=== PATIENT | male | born 1985 | race African-American/Black ===

== ENCOUNTER 2022-09-21 14:03 | Inpatient (IN) | payer MEDICARE, OTHER ==
[2022-09-21] VITALS (10 sets, daily range): BP systolic 72–123; BP diastolic 42–71; TEMP 99.2; O2SAT 92–100
[~2022-09-21] VITALS: Ht 167.6 cm; Wt 62.3 kg
[2022-09-21] MEDS ORDERED: AZITHROMYCIN 500 MG in IV D5W 250 ML IV ONE (15:00)
[2022-09-21] MEDS ORDERED: PIPERACILLIN /TAZOBACTAM 3.375 G in IV D5W 50 ML IV ONE (15:00)
[2022-09-21] MEDS ORDERED: VANCOMYCIN 1 GM in IV D5W 250 ML IV ONE ×2 (15:00→16:00)
[2022-09-21 15:02] LABS: BASOPHILS # (AUTO) 0.1 K/uL (0.0-0.2); BASOPHILS % (AUTO) 0.7 % (0.0-2.0); EOSINOPHILS % (AUTO) 0.4 % (0.0-6.0); HEMATOCRIT 29 % (39-51); LYMPHOCYTES # (AUTO) 1.2 K/uL (0.8-4.8); LYMPHOCYTES % (AUTO) 10.9 % (20.0-44.0); MEAN CORPUSCULAR HEMOGLOBIN 28 PG (26.0-33.0); MEAN CORPUSCULAR HGB CONC 31 g/dl (31.0-36.0); MEAN CORPUSCULAR VOLUME 91 fL (80-96); MONOCYTES # (AUTO) 0.8 K/uL (0.1-1.30); MONOCYTES % (AUTO) 7.3 % (2.0-12.0); NEUTROPHILS # (AUTO) 9.1 K/uL (1.8-8.9); NEUTROPHILS % (AUTO) 80.7 % (43.0-81.0); PLATELET COUNT (AUTO) 176 K/uL (150-450); RED BLOOD CELL COUNT(AUTO) 3.23 MIL/uL (4.5-6.0); RED CELL DISTRIBUTION WIDTH 16.7 % (11.5-15.0); WHITE BLOOD COUNT (AUTO) 11.3 K/uL (4.3-11.0)
[2022-09-21 15:05] LABS: ABG BASE EXCESS 5.2 mmol/L; ABG OXYGEN SATURATION 98.7 % (92.0-98.5); ABG PCO2 122.9 mmHg (35.0-45.0); ABG PH 7.101 (7.350-7.450); ABG PO2 151.3 mmHg (75.0-100.0); COHb 1.6 % (0.5-1.5); MetHb 0.3 % (0.0-1.5); O2Hb 96.8 % (94.0-97.0); SITE, ABG Right Radial; VENT MODE, BG NRB 15L
[2022-09-21 15:12] LABS: SERUM AMMONIA 42 umol/L (11-32)
[2022-09-21 15:31] LABS: ALANINE AMINOTRANSFERASE 27 U/L (12-78); ALBUMIN 3.3 g/dL (3.4-5.0); ALKALINE PHOSPHATASE 181 U/L (46-116); ASPARTATE AMINOTRANSFERASE 20 U/L (15-37); BILIRUBIN,DIRECT 0.1 mg/dL (0.0-0.2); BILIRUBIN,TOTAL 0.4 mg/dL (0.2-1.0); CARBON DIOXIDE 32 mmol/L (21-32); CHLORIDE 93 mmol/L (98-107); CREATININE 6.2 mg/dL (0.6-1.3); GLUCOSE 147 mg/dL (74-106); NT-PRO BNP > 25000 pg/mL (0-125); POTASSIUM 3.7 mmol/L (3.5-5.1); SODIUM SERUM 134 mmol/L (136-145); TOTAL PROTEIN, SERUM 8.9 g/dL (6.4-8.2)
[2022-09-21 15:47] LABS: UREA NITROGEN, BLOOD 90 mg/dL (7-18)
[2022-09-21] MEDS ORDERED: IV NS 0.9% 1,000 ML BAG IV SCH (16:00)
[2022-09-21] MEDS ORDERED: ONDANSETRON HCL/PF 4 MG/2 ML VIAL IVP PRN (16:00)
[2022-09-21] MEDS ORDERED: MIDAZOLAM HCL 100 MG in IV NS 0.9% 80 ML IV PRN ×2 (16:30→17:00)
[2022-09-21] MEDS ORDERED: VANCOMYCIN 500 MG in IV D5W 100 ML IV PRN (16:30)
[2022-09-21] MEDS ORDERED: ROCURONIUM BROMIDE 50 MG/5 ML IV ONE (16:54)
[2022-09-21] MEDS ORDERED: ETOMIDATE 2 MG/ML VIAL IV ONE (16:54)
[2022-09-21] MEDS ORDERED: PROPOFOL 100 ML IV PRN (17:00)
[2022-09-21] MEDS ORDERED: IV NS 0.9% 1,000 ML BAG IV ONE (17:00)
[2022-09-21] MEDS ORDERED: ASCO-352 GT (17:14)
[2022-09-21] MEDS ORDERED: MAGN400O6 GT (17:14)
[2022-09-21] MEDS ORDERED: LEVE100S GT (17:14)
[2022-09-21] MEDS ORDERED: FERR220S2 GT (17:14)
[2022-09-21] MEDS ORDERED: CALC500T88 GT (17:14)
[2022-09-21] MEDS ORDERED: NORM210S TP (17:14)
[2022-09-21] MEDS ORDERED: LOSA25TA3 GT (17:14)
[2022-09-21] MEDS ORDERED: CARV25TA2 GT (17:14)
[2022-09-21] MEDS ORDERED: SENN-261 GT (17:14)
[2022-09-21] MEDS ORDERED: INSU100V42 SQ (17:14)
[2022-09-21] MEDS ORDERED: PROTEIN LIQUID GT (17:14)
[2022-09-21] MEDS ORDERED: CLON0.2T GT (17:14)
[2022-09-21] MEDS ORDERED: BISA10SU11 RC (17:14)
[2022-09-21] MEDS ORDERED: PANT40TA49 GT (17:14)
[2022-09-21] MEDS ORDERED: MINO10TA2 GT (17:14)
[2022-09-21] MEDS ORDERED: THIA100T88 GT (17:14)
[2022-09-21] MEDS ORDERED: ACET-2605 GT (17:14)
[2022-09-21] MEDS ORDERED: ZINC220C6 GT (17:14)
[2022-09-21] MEDS ORDERED: MELA3TAB41 GT (17:14)
[2022-09-21] MEDS ORDERED: NEPRO 1.8 (17:14)
[2022-09-21] MEDS ORDERED: BLOO-668 IN (17:14)
[2022-09-21] MEDS ORDERED: AMLO5TAB4 GT (17:14)
[2022-09-21] MEDS ORDERED: SEVE0.8P3 GT (17:14)
[2022-09-21] MEDS ORDERED: NA P133E RC (17:14)
[2022-09-21] MEDS ORDERED: CYAN-51 GT (17:14)
[2022-09-21] MEDS ORDERED: SUCR1ORA15 GT (17:14)
[2022-09-21] MEDS ORDERED: APIX2.5T GT (17:14)
[2022-09-21] MEDS ORDERED: FAMO20TA8 PO (17:14)
[2022-09-21] MEDS ORDERED: OLAN2.5T3 GT (17:14)
[2022-09-21] MEDS ORDERED: HYDR-4303 GT (17:14)
[2022-09-21] MEDS ORDERED: ACET-868 PO (17:14)
[2022-09-21] MEDS ORDERED: FOLI0.8T23 GT (17:14)
[2022-09-21] MEDS ORDERED: DAPT500V2 IV (17:14)
[2022-09-21] MEDS ORDERED: FOLI0.8T3 GT (17:14)
[2022-09-21] MEDS ORDERED: HYDR-4076 GT (17:14)
[2022-09-21 17:36] LABS: ABG BASE EXCESS 2.1 mmol/L; ABG OXYGEN SATURATION 92.4 % (92.0-98.5); ABG PCO2 49.5 mmHg (35.0-45.0); ABG PH 7.367 (7.350-7.450); ABG PO2 59.6 mmHg (75.0-100.0); ABG TOTAL HEMOGLOBIN 8.4 G/dL (13.5-18.0); COHb 1.6 % (0.5-1.5); MetHb 0.3 % (0.0-1.5); O2Hb 90.6 % (94.0-97.0); SITE, ABG Right Radial
[2022-09-21] MEDS ORDERED: PIPERACILLIN /TAZOBACTAM 3.375 G in IV D5W 50 ML IV SCH (18:00)
[2022-09-21] MEDS: NOREPINEPHRINE 8 MG in IV NS 0.9% 242 ML IV PRN (19:03)
[2022-09-21] MEDS: MIDAZOLAM HCL 100 MG in IV NS 0.9% 80 ML IV PRN (20:14)
[2022-09-21] MEDS: PIPERACILLIN /TAZOBACTAM 2.25 G in IV D5W 50 ML IV SCH (20:17)
[2022-09-21] MEDS: PANTOPRAZOLE 40 MG VIAL IV SCH (20:17)
[2022-09-21] MEDS: HYDROCORTISONE SOD SUCCINATE 100 MG/2 ML VIAL IV SCH ×2 (20:18→21:00)
[2022-09-21] MEDS: IV NS 0.9% 250 ML IV PRN (20:27)
[2022-09-22] VITALS (79 sets, daily range): BP systolic 88–144; BP diastolic 48–86; TEMP 97.8–99; O2SAT 92–100
[2022-09-22] MEDS: ACETAMINOPHEN 650 MG/SUPP.RECT RC PRN (01:54)
[2022-09-22] MEDS: NOREPINEPHRINE 8 MG in IV NS 0.9% 242 ML IV PRN ×2 (04:01→23:48)
[2022-09-22 04:53] LABS: BASOPHILS % (AUTO) 0.1 % (0.0-2.0); HEMATOCRIT 25 % (39-51); HEMOGLOBIN 7.9 g/dL (13.5-17.5); LYMPHOCYTES # (AUTO) 1.2 K/uL (0.8-4.8); LYMPHOCYTES % (AUTO) 16.6 % (20.0-44.0); MEAN CORPUSCULAR HEMOGLOBIN 28 PG (26.0-33.0); MEAN CORPUSCULAR HGB CONC 32 g/dl (31.0-36.0); MEAN CORPUSCULAR VOLUME 87 fL (80-96); MONOCYTES # (AUTO) 0.4 K/uL (0.1-1.30); MONOCYTES % (AUTO) 5.5 % (2.0-12.0); NEUTROPHILS # (AUTO) 5.8 K/uL (1.8-8.9); NEUTROPHILS % (AUTO) 77.8 % (43.0-81.0); PLATELET COUNT (AUTO) 174 K/uL (150-450); RED BLOOD CELL COUNT(AUTO) 2.85 MIL/uL (4.5-6.0); RED CELL DISTRIBUTION WIDTH 16.2 % (11.5-15.0); WHITE BLOOD COUNT (AUTO) 7.5 K/uL (4.3-11.0)
[2022-09-22] MEDS: HYDROCORTISONE SOD SUCCINATE 100 MG/2 ML VIAL IV SCH ×3 (04:59→21:07)
[2022-09-22] MEDS: PIPERACILLIN /TAZOBACTAM 2.25 G in IV D5W 50 ML IV SCH ×5 (05:00→17:38)
[2022-09-22 05:17] LABS: ALBUMIN 2.7 g/dL (3.4-5.0); BILIRUBIN,TOTAL 0.5 mg/dL (0.2-1.0); CREATININE 6.8 mg/dL (0.6-1.3); POTASSIUM 3.1 mmol/L (3.5-5.1); TOTAL PROTEIN, SERUM 7.5 g/dL (6.4-8.2)
[2022-09-22] MEDS: MIDAZOLAM HCL 100 MG in IV NS 0.9% 80 ML IV PRN (06:00)
[2022-09-22] MEDS: IV NS 0.9% 250 ML IV PRN ×2 (06:05→22:43)
[2022-09-22] MEDS: PANTOPRAZOLE 40 MG VIAL IV SCH (08:47)
[2022-09-23] VITALS (80 sets, daily range): BP systolic 82–175; BP diastolic 47–87; TEMP 96.1–98.2; O2SAT 94–100
[2022-09-23] MEDS: PIPERACILLIN /TAZOBACTAM 2.25 G in IV D5W 50 ML IV SCH ×5 (00:01→23:31)
[2022-09-23 00:57] LABS: HIV-1 p24 ANTIGEN NON REACTIVE (NONREACTIVE); HIV-1/2 ANTIBODY NON REACTIVE (NONREACTIVE)
[2022-09-23 03:43] LABS: BASOPHILS % (AUTO) 0.1 % (0.0-2.0); HEMATOCRIT 26 % (39-51); HEMOGLOBIN 8.3 g/dL (13.5-17.5); LYMPHOCYTES # (AUTO) 0.9 K/uL (0.8-4.8); LYMPHOCYTES % (AUTO) 13.6 % (20.0-44.0); MEAN CORPUSCULAR HEMOGLOBIN 28 PG (26.0-33.0); MEAN CORPUSCULAR HGB CONC 32 g/dl (31.0-36.0); MEAN CORPUSCULAR VOLUME 87 fL (80-96); MONOCYTES # (AUTO) 0.4 K/uL (0.1-1.30); MONOCYTES % (AUTO) 6.1 % (2.0-12.0); NEUTROPHILS # (AUTO) 5.2 K/uL (1.8-8.9); NEUTROPHILS % (AUTO) 80.2 % (43.0-81.0); PLATELET COUNT (AUTO) 175 K/uL (150-450); RED BLOOD CELL COUNT(AUTO) 2.94 MIL/uL (4.5-6.0); RED CELL DISTRIBUTION WIDTH 16.6 % (11.5-15.0); WHITE BLOOD COUNT (AUTO) 6.5 K/uL (4.3-11.0)
[2022-09-23] MEDS: MIDAZOLAM HCL 100 MG in IV NS 0.9% 80 ML IV PRN ×2 (03:56→07:07)
[2022-09-23 04:03] LABS: CALCIUM, SERUM 11.5 mg/dL (8.5-10.1); CREATININE 5.4 mg/dL (0.6-1.3); MAGNESIUM 2.4 mg/dL (1.8-2.4); PHOSPHORUS 1.4 mg/dL (2.5-4.9); POTASSIUM 3.2 mmol/L (3.5-5.1)
[2022-09-23] MEDS: HYDROCORTISONE SOD SUCCINATE 100 MG/2 ML VIAL IV SCH ×3 (05:27→21:09)
[2022-09-23] MEDS ORDERED: Z GUARD REMEDY 4 OZ OINT TP PRN (08:00)
[2022-09-23] MEDS: PANTOPRAZOLE 40 MG VIAL IV SCH (09:25)
[2022-09-23] MEDS: Z GUARD REMEDY 4 OZ OINT TP SCH (09:26)
[2022-09-23] MEDS ORDERED: LACTULOSE 10 G/15 ML UDC (PYXIS) GT ONE (11:30)
[2022-09-23] MEDS ORDERED: hydrALAZINE HCL 25 MG TABLET GT PRN (12:00)
[2022-09-23] MEDS: SUCRALFATE 1 G/10 ML UDC GT SCH ×3 (12:06→21:08)
[2022-09-23] MEDS: IV NS 0.9% 250 ML IV PRN (12:55)
[2022-09-23] MEDS ORDERED: NOREPINEPHRINE 8 MG in IV NS 0.9% 242 ML IV PRN (14:30)
[2022-09-23] MEDS: NEPRO 1,000 ML BOTTLE GT PRN (15:12)
[2022-09-23] MEDS ORDERED: NEUTRA PHOS 1 POWD.PACKET GT ONE (16:00)
[2022-09-23] MEDS: CARVEDILOL 12.5 MG TABLET GT SCH (16:42)
[2022-09-23] MEDS: LEVETIRACETAM SOL (5 ML) 100 MG/ML UDC GT SCH (16:42)
[2022-09-23] MEDS: APIXABAN 2.5 MG TABLET GT SCH (16:43)
[2022-09-23] MEDS: MINOXIDIL (2.5MG) 2.5 MG TABLET GT SCH (17:00)
[2022-09-23] MEDS: CLONIDINE HCL 0.1 MG TABLET GT SCH (21:00)
[2022-09-24] VITALS (45 sets, daily range): BP systolic 80–171; BP diastolic 45–87; TEMP 97.7–98.5; O2SAT 94–100
[2022-09-24 04:18] LABS: BASOPHILS % (AUTO) 0.1 % (0.0-2.0); HEMATOCRIT 24 % (39-51); HEMOGLOBIN 7.9 g/dL (13.5-17.5); LYMPHOCYTES % (AUTO) 19.4 % (20.0-44.0); MEAN CORPUSCULAR HEMOGLOBIN 28 PG (26.0-33.0); MEAN CORPUSCULAR HGB CONC 33 g/dl (31.0-36.0); MEAN CORPUSCULAR VOLUME 87 fL (80-96); MONOCYTES # (AUTO) 0.4 K/uL (0.1-1.30); MONOCYTES % (AUTO) 8.4 % (2.0-12.0); NEUTROPHILS # (AUTO) 3.6 K/uL (1.8-8.9); NEUTROPHILS % (AUTO) 72.1 % (43.0-81.0); PLATELET COUNT (AUTO) 178 K/uL (150-450); RED BLOOD CELL COUNT(AUTO) 2.79 MIL/uL (4.5-6.0); RED CELL DISTRIBUTION WIDTH 16.4 % (11.5-15.0)
[2022-09-24 04:43] LABS: ALBUMIN 2.7 g/dL (3.4-5.0); BILIRUBIN,TOTAL 0.4 mg/dL (0.2-1.0); CALCIUM, SERUM 10.7 mg/dL (8.5-10.1); CREATININE 4.9 mg/dL (0.6-1.3); MAGNESIUM 2.3 mg/dL (1.8-2.4); PHOSPHORUS 1.8 mg/dL (2.5-4.9); TOTAL PROTEIN, SERUM 7.4 g/dL (6.4-8.2)
[2022-09-24] MEDS: MIDAZOLAM HCL 100 MG in IV NS 0.9% 80 ML IV PRN (04:43)
[2022-09-24] MEDS: HYDROCORTISONE SOD SUCCINATE 100 MG/2 ML VIAL IV SCH ×3 (04:45→20:29)
[2022-09-24 05:05] LABS: POTASSIUM 2.8 mmol/L (3.5-5.1)
[2022-09-24 05:29] LABS: HEPATITIS B CORE AB, TOTAL Negative (Negative)
[2022-09-24] MEDS: PIPERACILLIN /TAZOBACTAM 2.25 G in IV D5W 50 ML IV SCH ×3 (05:43→17:13)
[2022-09-24] MEDS ORDERED: POTASSIUM CHLORIDE 20 MEQ POWDER PACKET GT ONE (06:00)
[2022-09-24 08:18] LABS: CHOLESTEROL 123 mg/dL (<200); HDL CHOLESTEROL 52 mg/dL (40-60); LDL 52 mg/dL (0-99); TRIGLYCERIDES 80 mg/dL (30-150)
[2022-09-24] MEDS: SUCRALFATE 1 G/10 ML UDC GT SCH ×4 (08:51→20:29)
[2022-09-24] MEDS: LEVETIRACETAM SOL (5 ML) 100 MG/ML UDC GT SCH ×2 (08:51→17:11)
[2022-09-24] MEDS: PANTOPRAZOLE 40 MG VIAL IV SCH (08:51)
[2022-09-24] MEDS: OLANZAPINE 2.5 MG TABLET GT SCH (08:51)
[2022-09-24] MEDS: THIAMINE HCL 100 MG TABLET GT SCH (08:52)
[2022-09-24 08:56] LABS: OCCULT BLOOD STOOL NEGATIVE (NEGATIVE)
[2022-09-24] MEDS: APIXABAN 2.5 MG TABLET GT SCH ×2 (09:00→17:12)
[2022-09-24] MEDS: LOSARTAN POTASSIUM 25 MG TABLET GT SCH (09:00)
[2022-09-24] MEDS: AMLODIPINE BESYLATE 5 MG TABLET GT SCH (09:00)
[2022-09-24] MEDS: CLONIDINE HCL 0.1 MG TABLET GT SCH ×2 (09:00→20:30)
[2022-09-24] MEDS: MINOXIDIL (2.5MG) 2.5 MG TABLET GT SCH ×2 (09:00→17:00)
[2022-09-24] MEDS: CARVEDILOL 12.5 MG TABLET GT SCH ×2 (09:12→17:00)
[2022-09-24] MEDS: Z GUARD REMEDY 4 OZ OINT TP SCH (09:13)
[2022-09-24 10:08] LABS: ABG BASE EXCESS 3.5 mmol/L; ABG OXYGEN SATURATION 98.4 % (92.0-98.5); ABG PH 7.482 (7.350-7.450); ABG PO2 114.6 mmHg (75.0-100.0); ABG TOTAL HEMOGLOBIN 9.9 G/dL (13.5-18.0); AaDO2 91.9 mmHg; COHb 0.9 % (0.5-1.5); MetHb 0.1 % (0.0-1.5); O2Hb 97.4 % (94.0-97.0); PEEP,BG 5 cm H2O; SITE, ABG Right Brachial; VT, ABG 450 mL
[2022-09-24] MEDS ORDERED: IV NS 0.9% 250 ML IV ONE (16:36)
[2022-09-24] MEDS ORDERED: IOHEXOL-300 100 ML VIAL IV ONE (16:36)
[2022-09-24 17:23] LABS: CALCIUM, SERUM 11.1 mg/dL (8.5-10.1); CREATININE 3.2 mg/dL (0.6-1.3); POTASSIUM 3.6 mmol/L (3.5-5.1)
[2022-09-24] MEDS ORDERED: NEUTRA PHOS 1 POWD.PACKET PO ONE (18:00)
[2022-09-25] VITALS (24 sets, daily range): BP systolic 86–144; BP diastolic 55–90; TEMP 97.7–98.6; O2SAT 96–100
[2022-09-25] MEDS: PIPERACILLIN /TAZOBACTAM 2.25 G in IV D5W 50 ML IV SCH ×4 (00:16→17:18)
[2022-09-25 04:37] LABS: BASOPHILS % (AUTO) 0.1 % (0.0-2.0); HEMATOCRIT 29 % (39-51); HEMOGLOBIN 8.9 g/dL (13.5-17.5); LYMPHOCYTES # (AUTO) 0.7 K/uL (0.8-4.8); LYMPHOCYTES % (AUTO) 13.2 % (20.0-44.0); MEAN CORPUSCULAR HEMOGLOBIN 28 PG (26.0-33.0); MEAN CORPUSCULAR HGB CONC 31 g/dl (31.0-36.0); MEAN CORPUSCULAR VOLUME 90 fL (80-96); MONOCYTES # (AUTO) 0.4 K/uL (0.1-1.30); MONOCYTES % (AUTO) 6.7 % (2.0-12.0); NEUTROPHILS # (AUTO) 4.5 K/uL (1.8-8.9); PLATELET COUNT (AUTO) 188 K/uL (150-450); RED CELL DISTRIBUTION WIDTH 17.1 % (11.5-15.0); WHITE BLOOD COUNT (AUTO) 5.7 K/uL (4.3-11.0)
[2022-09-25 04:47] LABS: CALCIUM, SERUM 11.3 mg/dL (8.5-10.1); CREATININE 3.8 mg/dL (0.6-1.3); MAGNESIUM 2.3 mg/dL (1.8-2.4); PHOSPHORUS 3.3 mg/dL (2.5-4.9); POTASSIUM 3.9 mmol/L (3.5-5.1)
[2022-09-25] MEDS: HYDROCORTISONE SOD SUCCINATE 100 MG/2 ML VIAL IV SCH ×3 (05:15→20:42)
[2022-09-25] MEDS: NEPRO 1,000 ML BOTTLE GT PRN (05:48)
[2022-09-25] MEDS: PANTOPRAZOLE 40 MG VIAL IV SCH (08:18)
[2022-09-25] MEDS: LEVETIRACETAM SOL (5 ML) 100 MG/ML UDC GT SCH ×2 (08:18→17:16)
[2022-09-25] MEDS: OLANZAPINE 2.5 MG TABLET GT SCH (08:18)
[2022-09-25] MEDS: SUCRALFATE 1 G/10 ML UDC GT SCH ×4 (08:18→20:42)
[2022-09-25] MEDS: THIAMINE HCL 100 MG TABLET GT SCH (08:18)
[2022-09-25] MEDS: APIXABAN 2.5 MG TABLET GT SCH ×2 (08:19→17:16)
[2022-09-25] MEDS: Z GUARD REMEDY 4 OZ OINT TP SCH (08:20)
[2022-09-25] MEDS: AMLODIPINE BESYLATE 5 MG TABLET GT SCH (09:00)
[2022-09-25] MEDS: CLONIDINE HCL 0.1 MG TABLET GT SCH ×2 (09:00→21:00)
[2022-09-25] MEDS: LOSARTAN POTASSIUM 25 MG TABLET GT SCH (09:00)
[2022-09-25] MEDS: CARVEDILOL 12.5 MG TABLET GT SCH ×2 (09:00→17:16)
[2022-09-25] MEDS: MINOXIDIL (2.5MG) 2.5 MG TABLET GT SCH ×2 (09:00→17:17)
[2022-09-25] MEDS: METOCLOPRAMIDE HCL 10 MG/2 ML VIAL IV SCH ×2 (12:48→18:27)
[2022-09-25] MEDS ORDERED: VANCOMYCIN 1 GM in IV D5W 250ml IV ONE (15:00)
[2022-09-26] VITALS (29 sets, daily range): BP systolic 76–141; BP diastolic 45–83; TEMP 97.8–98.2; O2SAT 92–100
[2022-09-26] MEDS: PIPERACILLIN /TAZOBACTAM 2.25 G in IV D5W 50 ML IV SCH ×4 (00:04→17:26)
[2022-09-26] MEDS: METOCLOPRAMIDE HCL 10 MG/2 ML VIAL IV SCH ×4 (00:06→18:57)
[2022-09-26] MEDS: IV NS 0.9% 250 ML IV PRN (00:14)
[2022-09-26 05:11] LABS: BASOPHILS % (AUTO) 0.1 % (0.0-2.0); HEMATOCRIT 29 % (39-51); HEMOGLOBIN 8.8 g/dL (13.5-17.5); LYMPHOCYTES # (AUTO) 1.1 K/uL (0.8-4.8); MEAN CORPUSCULAR HEMOGLOBIN 28 PG (26.0-33.0); MEAN CORPUSCULAR HGB CONC 30 g/dl (31.0-36.0); MEAN CORPUSCULAR VOLUME 91 fL (80-96); MONOCYTES # (AUTO) 0.5 K/uL (0.1-1.30); MONOCYTES % (AUTO) 7.6 % (2.0-12.0); NEUTROPHILS # (AUTO) 4.8 K/uL (1.8-8.9); NEUTROPHILS % (AUTO) 75.3 % (43.0-81.0); PLATELET COUNT (AUTO) 186 K/uL (150-450); RED BLOOD CELL COUNT(AUTO) 3.18 MIL/uL (4.5-6.0); RED CELL DISTRIBUTION WIDTH 16.8 % (11.5-15.0); WHITE BLOOD COUNT (AUTO) 6.3 K/uL (4.3-11.0)
[2022-09-26 05:27] LABS: CALCIUM, SERUM 10.9 mg/dL (8.5-10.1); CREATININE 3.6 mg/dL (0.6-1.3); MAGNESIUM 2.3 mg/dL (1.8-2.4); PHOSPHORUS 4.2 mg/dL (2.5-4.9); POTASSIUM 4.1 mmol/L (3.5-5.1)
[2022-09-26] MEDS: HYDROCORTISONE SOD SUCCINATE 100 MG/2 ML VIAL IV SCH ×3 (05:31→20:53)
[2022-09-26] MEDS ORDERED: VANCOMYCIN 500 MG in IV D5W 100 ML IV PRN (06:00)
[2022-09-26] MEDS: CARVEDILOL 12.5 MG TABLET GT SCH ×2 (11:20→17:00)
[2022-09-26] MEDS: LEVETIRACETAM SOL (5 ML) 100 MG/ML UDC GT SCH ×2 (11:20→17:21)
[2022-09-26] MEDS: APIXABAN 2.5 MG TABLET GT SCH ×2 (11:21→17:23)
[2022-09-26] MEDS: AMLODIPINE BESYLATE 5 MG TABLET GT SCH (11:21)
[2022-09-26] MEDS: Z GUARD REMEDY 4 OZ OINT TP SCH (11:22)
[2022-09-26] MEDS: MINOXIDIL (2.5MG) 2.5 MG TABLET GT SCH ×2 (11:23→17:00)
[2022-09-26] MEDS: SUCRALFATE 1 G/10 ML UDC GT SCH ×4 (11:31→20:53)
[2022-09-26] MEDS: THIAMINE HCL 100 MG TABLET GT SCH (11:31)
[2022-09-26] MEDS: PANTOPRAZOLE 40 MG/PACK PACK GT SCH (11:31)
[2022-09-26] MEDS: CLONIDINE HCL 0.1 MG TABLET GT SCH (11:32)
[2022-09-26] MEDS: LOSARTAN POTASSIUM 25 MG TABLET GT SCH (11:33)
[2022-09-26] MEDS: OLANZAPINE 2.5 MG TABLET GT SCH (11:33)
[2022-09-26 12:06] LABS: AFP, TUMOR MARKER 3.3 ng/mL (0.0-6.9)
[2022-09-26] MEDS: NEPRO 1,000 ML BOTTLE GT PRN (12:50)
[2022-09-26] MEDS ORDERED: ALBUMIN 25% 12.5 GM/50 ML BOTTLE IV ONE ×2 (14:30→15:00)
[2022-09-26] MEDS ORDERED: ALBUMIN 25% 25 GM in PREMIX 1 EA IV ONE (15:30)
[2022-09-26] MEDS ORDERED: NOREPINEPHRINE 8 MG in IV NS 0.9% 242 ML IV PRN (19:00)
[2022-09-27] VITALS (28 sets, daily range): BP systolic 88–146; BP diastolic 50–89; TEMP 98–98.6; O2SAT 93–100
[2022-09-27] MEDS: PIPERACILLIN /TAZOBACTAM 2.25 G in IV D5W 50 ML IV SCH ×4 (00:22→17:32)
[2022-09-27] MEDS: METOCLOPRAMIDE HCL 10 MG/2 ML VIAL IV SCH ×4 (00:22→19:53)
[2022-09-27 00:57] LABS: ABG BASE EXCESS -0.7 mmol/L; ABG OXYGEN SATURATION 96.8 % (92.0-98.5); ABG PCO2 71.4 mmHg (35.0-45.0); ABG PH 7.213 (7.350-7.450); ABG PO2 95.6 mmHg (75.0-100.0); ABG TOTAL HEMOGLOBIN 10.2 G/dL (13.5-18.0); AaDO2 107.5 mmHg; COHb 1.6 % (0.5-1.5); MetHb 0.2 % (0.0-1.5); O2Hb 95.1 % (94.0-97.0); SITE, ABG Left Radial
[2022-09-27 02:35] LABS: ABG OXYGEN SATURATION 92.6 % (92.0-98.5); ABG PCO2 54.4 mmHg (35.0-45.0); AaDO2 159.6 mmHg; COHb 1.3 % (0.5-1.5); MetHb 0.3 % (0.0-1.5); O2Hb 91.1 % (94.0-97.0); SITE, ABG Right Radial
[2022-09-27] MEDS: HYDROCORTISONE SOD SUCCINATE 100 MG/2 ML VIAL IV SCH ×3 (05:01→21:36)
[2022-09-27 05:23] LABS: BASOPHILS % (AUTO) 0.1 % (0.0-2.0); HEMATOCRIT 28 % (39-51); HEMOGLOBIN 8.6 g/dL (13.5-17.5); LYMPHOCYTES # (AUTO) 1.1 K/uL (0.8-4.8); LYMPHOCYTES % (AUTO) 21.1 % (20.0-44.0); MEAN CORPUSCULAR HEMOGLOBIN 28 PG (26.0-33.0); MEAN CORPUSCULAR HGB CONC 31 g/dl (31.0-36.0); MEAN CORPUSCULAR VOLUME 89 fL (80-96); MONOCYTES # (AUTO) 0.4 K/uL (0.1-1.30); MONOCYTES % (AUTO) 6.9 % (2.0-12.0); NEUTROPHILS # (AUTO) 3.9 K/uL (1.8-8.9); NEUTROPHILS % (AUTO) 71.9 % (43.0-81.0); PLATELET COUNT (AUTO) 213 K/uL (150-450); RED BLOOD CELL COUNT(AUTO) 3.09 MIL/uL (4.5-6.0); RED CELL DISTRIBUTION WIDTH 16.4 % (11.5-15.0); WHITE BLOOD COUNT (AUTO) 5.4 K/uL (4.3-11.0)
[2022-09-27 05:35] LABS: CALCIUM, SERUM 10.2 mg/dL (8.5-10.1); CREATININE 3.1 mg/dL (0.6-1.3); MAGNESIUM 2.1 mg/dL (1.8-2.4); PHOSPHORUS 3.4 mg/dL (2.5-4.9); POTASSIUM 3.9 mmol/L (3.5-5.1)
[2022-09-27] MEDS: CARVEDILOL 12.5 MG TABLET GT SCH ×2 (08:01→16:08)
[2022-09-27] MEDS: MINOXIDIL (2.5MG) 2.5 MG TABLET GT SCH ×2 (08:07→16:09)
[2022-09-27] MEDS: AMLODIPINE BESYLATE 5 MG TABLET PO SCH (08:07)
[2022-09-27] MEDS: THIAMINE HCL 100 MG TABLET GT SCH (08:10)
[2022-09-27] MEDS: SUCRALFATE 1 G/10 ML UDC GT SCH ×4 (08:11→21:36)
[2022-09-27] MEDS: OLANZAPINE 2.5 MG TABLET GT SCH (08:11)
[2022-09-27] MEDS: APIXABAN 2.5 MG TABLET GT SCH ×2 (08:11→16:12)
[2022-09-27] MEDS: LEVETIRACETAM SOL (5 ML) 100 MG/ML UDC GT SCH ×2 (08:11→16:13)
[2022-09-27] MEDS: PANTOPRAZOLE 40 MG/PACK PACK GT SCH (08:14)
[2022-09-27] MEDS: Z GUARD REMEDY 4 OZ OINT TP SCH (08:14)
[2022-09-27] MEDS ORDERED: GADOTERATE MEGLUMINE 10 MMOL/20 ML VIAL IV ONE (11:31)
[2022-09-27] MEDS: NEPRO 1,000 ML BOTTLE GT PRN (12:48)
[2022-09-27] MEDS ORDERED: IV Sodium Chloride 3% 500 ML 100 ML IV ONE (14:00)
[2022-09-28] VITALS (25 sets, daily range): BP systolic 108–142; BP diastolic 67–91; TEMP 97.5–98.8; O2SAT 93–100
[2022-09-28] MEDS: PIPERACILLIN /TAZOBACTAM 2.25 G in IV D5W 50 ML IV SCH ×2 (00:15→05:22)
[2022-09-28] MEDS: METOCLOPRAMIDE HCL 10 MG/2 ML VIAL IV SCH ×4 (00:16→19:55)
[2022-09-28 04:44] LABS: EOSINOPHILS % (AUTO) 0.1 % (0.0-6.0); HEMATOCRIT 28 % (39-51); HEMOGLOBIN 8.6 g/dL (13.5-17.5); LYMPHOCYTES # (AUTO) 0.8 K/uL (0.8-4.8); LYMPHOCYTES % (AUTO) 17.4 % (20.0-44.0); MEAN CORPUSCULAR HEMOGLOBIN 28 PG (26.0-33.0); MEAN CORPUSCULAR HGB CONC 31 g/dl (31.0-36.0); MEAN CORPUSCULAR VOLUME 90 fL (80-96); MONOCYTES # (AUTO) 0.3 K/uL (0.1-1.30); MONOCYTES % (AUTO) 6.3 % (2.0-12.0); NEUTROPHILS # (AUTO) 3.7 K/uL (1.8-8.9); NEUTROPHILS % (AUTO) 76.2 % (43.0-81.0); PLATELET COUNT (AUTO) 193 K/uL (150-450); RED BLOOD CELL COUNT(AUTO) 3.07 MIL/uL (4.5-6.0); RED CELL DISTRIBUTION WIDTH 16.4 % (11.5-15.0); WHITE BLOOD COUNT (AUTO) 4.8 K/uL (4.3-11.0)
[2022-09-28 05:00] LABS: CALCIUM, SERUM 10.3 mg/dL (8.5-10.1); CREATININE 3.1 mg/dL (0.6-1.3); MAGNESIUM 2.2 mg/dL (1.8-2.4); PHOSPHORUS 2.7 mg/dL (2.5-4.9); POTASSIUM 3.3 mmol/L (3.5-5.1)
[2022-09-28] MEDS: HYDROCORTISONE SOD SUCCINATE 100 MG/2 ML VIAL IV SCH ×3 (05:22→21:44)
[2022-09-28 07:06] LABS: CARBOHYDRATE AG 19-9 23 U/mL (0-35); FOLIC ACID > 20.0 ng/mL (>3.0)
[2022-09-28] MEDS: SUCRALFATE 1 G/10 ML UDC GT SCH ×4 (08:24→21:44)
[2022-09-28] MEDS: LEVETIRACETAM SOL (5 ML) 100 MG/ML UDC GT SCH ×2 (08:24→16:33)
[2022-09-28] MEDS: OLANZAPINE 2.5 MG TABLET GT SCH (08:24)
[2022-09-28] MEDS: CARVEDILOL 12.5 MG TABLET GT SCH ×2 (08:24→16:33)
[2022-09-28 08:25] LABS: ABG BASE EXCESS -1.6 mmol/L; ABG OXYGEN SATURATION 97.1 % (92.0-98.5); ABG PH 7.231 (7.350-7.450); ABG PO2 97.7 mmHg (75.0-100.0); ABG TOTAL HEMOGLOBIN 10.3 G/dL (13.5-18.0); COHb 1.4 % (0.5-1.5); MetHb 0.5 % (0.0-1.5); O2Hb 95.3 % (94.0-97.0); SITE, ABG Right Radial; VENT MODE, BG 4LNC
[2022-09-28] MEDS: THIAMINE HCL 100 MG TABLET GT SCH (08:25)
[2022-09-28] MEDS: PANTOPRAZOLE 40 MG/PACK PACK GT SCH (08:25)
[2022-09-28] MEDS: AMLODIPINE BESYLATE 5 MG TABLET PO SCH (08:25)
[2022-09-28] MEDS: MINOXIDIL (2.5MG) 2.5 MG TABLET GT SCH ×2 (08:26→16:33)
[2022-09-28] MEDS: APIXABAN 2.5 MG TABLET GT SCH ×2 (08:30→16:34)
[2022-09-28] MEDS: Z GUARD REMEDY 4 OZ OINT TP SCH (08:30)
[2022-09-28 09:07] LABS: *SPE A/G RATIO 0.8 (0.7-1.7); *SPE ALBUMIN 3.4 g/dL (2.9-4.4); *SPE ALPHA-1-GLOBULIN 0.4 g/dL (0.0-0.4); *SPE ALPHA-2-GLOBULIN 0.8 g/dL (0.4-1.0); *SPE BETA GLOBULIN 1.1 g/dL (0.7-1.3); *SPE GLOBULIN, TOTAL 4.4 g/dL (2.2-3.9); *SPE M-SPIKE Not Observed g/dL (Not Observed); *SPE PROTEIN TOTAL 7.8 g/dL (6.0-8.5)
[2022-09-28 14:01] LABS: ABG BASE EXCESS 0.7 mmol/L; ABG PCO2 54.8 mmHg (35.0-45.0); ABG PH 7.318 (7.350-7.450); ABG PO2 67.3 mmHg (75.0-100.0); ABG TOTAL HEMOGLOBIN 10.1 G/dL (13.5-18.0); AaDO2 38.6 mmHg; COHb 1.4 % (0.5-1.5); MetHb 0.3 % (0.0-1.5); O2Hb 92.4 % (94.0-97.0); SITE, ABG Right Radial; VENT MODE, BG 1LNC
[2022-09-28] MEDS: IV NS 0.9% 250 ML IV PRN (18:03)
[2022-09-28] MEDS: POLYETHYLENE GLYCOL 3350 17 GM POWD.PACK PEG SCH (21:44)
[2022-09-29] VITALS (25 sets, daily range): BP systolic 104–149; BP diastolic 60–95; TEMP 97.8–98.4; O2SAT 92–100
[2022-09-29] MEDS: METOCLOPRAMIDE HCL 10 MG/2 ML VIAL IV SCH ×4 (01:58→19:47)
[2022-09-29 04:46] LABS: HEMATOCRIT 26 % (39-51); HEMOGLOBIN 8.2 g/dL (13.5-17.5); LYMPHOCYTES # (AUTO) 0.8 K/uL (0.8-4.8); LYMPHOCYTES % (AUTO) 18.8 % (20.0-44.0); MEAN CORPUSCULAR HEMOGLOBIN 28 PG (26.0-33.0); MEAN CORPUSCULAR HGB CONC 32 g/dl (31.0-36.0); MEAN CORPUSCULAR VOLUME 89 fL (80-96); MONOCYTES # (AUTO) 0.2 K/uL (0.1-1.30); MONOCYTES % (AUTO) 4.6 % (2.0-12.0); NEUTROPHILS # (AUTO) 3.3 K/uL (1.8-8.9); NEUTROPHILS % (AUTO) 76.6 % (43.0-81.0); PLATELET COUNT (AUTO) 183 K/uL (150-450); RED BLOOD CELL COUNT(AUTO) 2.94 MIL/uL (4.5-6.0); RED CELL DISTRIBUTION WIDTH 16.8 % (11.5-15.0); WHITE BLOOD COUNT (AUTO) 4.4 K/uL (4.3-11.0)
[2022-09-29 05:08] LABS: IMMUNOGLOBULIN A, SERUM 344 mg/dL (90-386); IMMUNOGLOBULIN G, SERUM 2060 mg/dL (603-1613); IMMUNOGLOBULIN M, SERUM 40 mg/dL (20-172)
[2022-09-29] MEDS: HYDROCORTISONE SOD SUCCINATE 100 MG/2 ML VIAL IV SCH ×4 (05:15→16:49)
[2022-09-29 05:16] LABS: CREATININE 3.4 mg/dL (0.6-1.3); PHOSPHORUS 2.6 mg/dL (2.5-4.9); POTASSIUM 3.3 mmol/L (3.5-5.1)
[2022-09-29] MEDS: AMLODIPINE BESYLATE 5 MG TABLET PO SCH (08:04)
[2022-09-29] MEDS: SUCRALFATE 1 G/10 ML UDC GT SCH ×4 (08:05→21:06)
[2022-09-29] MEDS: CARVEDILOL 12.5 MG TABLET GT SCH ×2 (08:05→17:05)
[2022-09-29] MEDS: MINOXIDIL (2.5MG) 2.5 MG TABLET GT SCH ×2 (08:05→17:05)
[2022-09-29] MEDS: LEVETIRACETAM SOL (5 ML) 100 MG/ML UDC GT SCH ×2 (08:05→17:04)
[2022-09-29] MEDS: PANTOPRAZOLE 40 MG/PACK PACK GT SCH (08:05)
[2022-09-29] MEDS: OLANZAPINE 2.5 MG TABLET GT SCH (08:06)
[2022-09-29] MEDS: THIAMINE HCL 100 MG TABLET GT SCH (08:06)
[2022-09-29] MEDS: APIXABAN 2.5 MG TABLET GT SCH ×2 (08:13→17:06)
[2022-09-29] MEDS: Z GUARD REMEDY 4 OZ OINT TP SCH (08:13)
[2022-09-29 08:39] LABS: ABG BASE EXCESS -1.2 mmol/L; ABG OXYGEN SATURATION 93.4 % (92.0-98.5); ABG PCO2 47.3 mmHg (35.0-45.0); ABG PH 7.337 (7.350-7.450); ABG PO2 67.1 mmHg (75.0-100.0); ABG TOTAL HEMOGLOBIN 9.8 G/dL (13.5-18.0); AaDO2 47.7 mmHg; COHb 1.6 % (0.5-1.5); MetHb 0.3 % (0.0-1.5); O2Hb 91.6 % (94.0-97.0); SITE, ABG Right Radial; VENT MODE, BG 1L NC
[2022-09-29 10:07] LABS: FREE KAPPA LT CHAINS SERUM 291.9 mg/L (3.3-19.4); FREE LAMBDA LT CHAIN SERUM 133.6 mg/L (5.7-26.3); KAPPA/LAMBDA RATIO SERUM 2.18 (0.26-1.65)
[2022-09-29] MEDS ORDERED: POTASSIUM CHLORIDE 20 MEQ POWDER PACKET GT SCH (11:30)
[2022-09-29] MEDS ORDERED: POTASSIUM CHLORIDE 20 MEQ POWDER PACKET GT ONE (15:00)
[2022-09-29] MEDS: NEPRO 1,000 ML BOTTLE GT PRN (18:22)
[2022-09-29] MEDS: POLYETHYLENE GLYCOL 3350 17 GM POWD.PACK PEG SCH (21:06)
[2022-09-30] VITALS (14 sets, daily range): BP systolic 105–153; BP diastolic 61–95; TEMP 97.3–99.1; O2SAT 95–100
[2022-09-30] MEDS: METOCLOPRAMIDE HCL 10 MG/2 ML VIAL IV SCH ×4 (01:31→18:28)
[2022-09-30 04:02] LABS: BASOPHILS % (AUTO) 0.2 % (0.0-2.0); EOSINOPHILS % (AUTO) 0.1 % (0.0-6.0); HEMATOCRIT 27 % (39-51); HEMOGLOBIN 8.4 g/dL (13.5-17.5); LYMPHOCYTES # (AUTO) 1.2 K/uL (0.8-4.8); LYMPHOCYTES % (AUTO) 26.8 % (20.0-44.0); MEAN CORPUSCULAR HEMOGLOBIN 28 PG (26.0-33.0); MEAN CORPUSCULAR HGB CONC 31 g/dl (31.0-36.0); MEAN CORPUSCULAR VOLUME 90 fL (80-96); MONOCYTES # (AUTO) 0.5 K/uL (0.1-1.30); MONOCYTES % (AUTO) 10.9 % (2.0-12.0); NEUTROPHILS # (AUTO) 2.9 K/uL (1.8-8.9); PLATELET COUNT (AUTO) 177 K/uL (150-450); RED BLOOD CELL COUNT(AUTO) 2.99 MIL/uL (4.5-6.0); RED CELL DISTRIBUTION WIDTH 16.5 % (11.5-15.0); WHITE BLOOD COUNT (AUTO) 4.6 K/uL (4.3-11.0)
[2022-09-30 04:18] LABS: CALCIUM, SERUM 10.3 mg/dL (8.5-10.1); CREATININE 3.5 mg/dL (0.6-1.3); MAGNESIUM 2.1 mg/dL (1.8-2.4); POTASSIUM 3.8 mmol/L (3.5-5.1)
[2022-09-30 04:53] LABS: LYMPHOCYTES % (MANUAL) 27 % (16-48); MONOCYTES % (MANUAL) 5 % (0-11.0); NEUTROPHILS % (MANUAL) 68 (42-76)
[2022-09-30 04:54] LABS: ANISOCYTOSIS 1+; HYPOCHROMASIA 1+; PLATELET ESTIMATE ADEQUATE; STOMATOCYTES 1+
[2022-09-30] MEDS: APIXABAN 2.5 MG TABLET GT SCH ×2 (08:24→16:14)
[2022-09-30] MEDS: OLANZAPINE 2.5 MG TABLET GT SCH (08:24)
[2022-09-30] MEDS: MINOXIDIL (2.5MG) 2.5 MG TABLET GT SCH ×2 (08:24→16:17)
[2022-09-30] MEDS: PANTOPRAZOLE 40 MG/PACK PACK GT SCH (08:25)
[2022-09-30] MEDS: THIAMINE HCL 100 MG TABLET GT SCH (08:25)
[2022-09-30] MEDS: CARVEDILOL 12.5 MG TABLET GT SCH ×2 (08:25→16:17)
[2022-09-30] MEDS: HYDROCORTISONE SOD SUCCINATE 100 MG/2 ML VIAL IV SCH ×2 (08:25→16:14)
[2022-09-30] MEDS: AMLODIPINE BESYLATE 5 MG TABLET PO SCH (08:26)
[2022-09-30] MEDS: SUCRALFATE 1 G/10 ML UDC GT SCH ×4 (08:26→20:43)
[2022-09-30] MEDS: LEVETIRACETAM SOL (5 ML) 100 MG/ML UDC GT SCH ×2 (08:26→16:14)
[2022-09-30] MEDS: Z GUARD REMEDY 4 OZ OINT TP SCH (08:26)
[2022-09-30] MEDS ORDERED: K PHOS NEUTRAL 250 MG TABLET GT PRN (15:30)
[2022-09-30] MEDS: K PHOS NEUTRAL 250 MG TABLET GT SCH (17:12)
[2022-09-30] MEDS: POLYETHYLENE GLYCOL 3350 17 GM POWD.PACK PEG SCH (21:22)
[2022-10-01] VITALS: BP 120/71; TEMP 98.5; O2SAT 100
[2022-10-01] MEDS: METOCLOPRAMIDE HCL 10 MG/2 ML VIAL IV SCH ×4 (00:01→18:02)
[2022-10-01] MEDS: K PHOS NEUTRAL 250 MG TABLET GT SCH ×4 (00:01→17:08)
[2022-10-01 04:00] VITALS: BP 124/75; TEMP 97; O2SAT 96
[2022-10-01] MEDS: NEPRO 1,000 ML BOTTLE GT PRN (06:04)
[2022-10-01 06:59] LABS: BASOPHILS % (AUTO) 0.2 % (0.0-2.0); EOSINOPHILS % (AUTO) 0.5 % (0.0-6.0); HEMATOCRIT 25 % (39-51); HEMOGLOBIN 7.9 g/dL (13.5-17.5); LYMPHOCYTES # (AUTO) 1.3 K/uL (0.8-4.8); LYMPHOCYTES % (AUTO) 29.2 % (20.0-44.0); MEAN CORPUSCULAR HEMOGLOBIN 28 PG (26.0-33.0); MEAN CORPUSCULAR HGB CONC 32 g/dl (31.0-36.0); MEAN CORPUSCULAR VOLUME 88 fL (80-96); MONOCYTES # (AUTO) 0.6 K/uL (0.1-1.30); MONOCYTES % (AUTO) 13.4 % (2.0-12.0); NEUTROPHILS # (AUTO) 2.5 K/uL (1.8-8.9); NEUTROPHILS % (AUTO) 56.7 % (43.0-81.0); PLATELET COUNT (AUTO) 156 K/uL (150-450); RED BLOOD CELL COUNT(AUTO) 2.83 MIL/uL (4.5-6.0); WHITE BLOOD COUNT (AUTO) 4.4 K/uL (4.3-11.0)
[2022-10-01 07:13] LABS: CALCIUM, SERUM 10.1 mg/dL (8.5-10.1); CREATININE 3.2 mg/dL (0.6-1.3); POTASSIUM 3.4 mmol/L (3.5-5.1)
[2022-10-01 08:00] VITALS: BP 125/83; TEMP 98.2; O2SAT 97
[2022-10-01] MEDS: PANTOPRAZOLE 40 MG/PACK PACK GT SCH (08:21)
[2022-10-01] MEDS: SUCRALFATE 1 G/10 ML UDC GT SCH ×4 (08:21→20:54)
[2022-10-01] MEDS: OLANZAPINE 2.5 MG TABLET GT SCH (08:21)
[2022-10-01] MEDS: HYDROCORTISONE SOD SUCCINATE 100 MG/2 ML VIAL IV SCH ×2 (08:21→10:30)
[2022-10-01] MEDS: LEVETIRACETAM SOL (5 ML) 100 MG/ML UDC GT SCH ×2 (08:21→17:07)
[2022-10-01] MEDS: THIAMINE HCL 100 MG TABLET GT SCH (08:21)
[2022-10-01] MEDS: APIXABAN 2.5 MG TABLET GT SCH ×2 (08:22→17:08)
[2022-10-01] MEDS: Z GUARD REMEDY 4 OZ OINT TP SCH (10:12)
[2022-10-01] MEDS: AMLODIPINE BESYLATE 5 MG TABLET PO SCH (10:30)
[2022-10-01] MEDS: MINOXIDIL (2.5MG) 2.5 MG TABLET GT SCH ×2 (10:31→17:00)
[2022-10-01] MEDS: CARVEDILOL 12.5 MG TABLET GT SCH ×2 (10:32→17:00)
[2022-10-01 12:00] VITALS: BP 128/80; TEMP 98.1; O2SAT 94
[2022-10-01 16:00] VITALS: BP 114/71; TEMP 98.2; O2SAT 95
[2022-10-01 20:00] VITALS: BP 118/68; TEMP 98.9; O2SAT 98
[2022-10-01] MEDS: POLYETHYLENE GLYCOL 3350 17 GM POWD.PACK PEG SCH (20:54)
[2022-10-02] VITALS: BP 126/80; TEMP 97.9; O2SAT 100
[2022-10-02] MEDS: METOCLOPRAMIDE HCL 10 MG/2 ML VIAL IV SCH ×4 (00:11→18:00)
[2022-10-02] MEDS: K PHOS NEUTRAL 250 MG TABLET GT SCH ×4 (00:11→17:02)
[2022-10-02 04:00] VITALS: BP 145/91; TEMP 99; O2SAT 95
[2022-10-02 08:00] VITALS: BP 129/83; TEMP 99; O2SAT 95
[2022-10-02] MEDS: PANTOPRAZOLE 40 MG/PACK PACK GT SCH (08:43)
[2022-10-02] MEDS: MINOXIDIL (2.5MG) 2.5 MG TABLET GT SCH ×2 (08:43→16:40)
[2022-10-02] MEDS: LEVETIRACETAM SOL (5 ML) 100 MG/ML UDC GT SCH ×2 (08:43→16:40)
[2022-10-02] MEDS: AMLODIPINE BESYLATE 5 MG TABLET PO SCH (08:44)
[2022-10-02] MEDS: SUCRALFATE 1 G/10 ML UDC GT SCH ×4 (08:44→21:49)
[2022-10-02] MEDS: THIAMINE HCL 100 MG TABLET GT SCH (08:44)
[2022-10-02] MEDS: OLANZAPINE 2.5 MG TABLET GT SCH (08:44)
[2022-10-02] MEDS: CARVEDILOL 12.5 MG TABLET GT SCH ×2 (08:45→16:41)
[2022-10-02] MEDS: HYDROCORTISONE SOD SUCCINATE 100 MG/2 ML VIAL IV SCH (08:45)
[2022-10-02] MEDS: APIXABAN 2.5 MG TABLET GT SCH ×2 (08:46→16:42)
[2022-10-02] MEDS: Z GUARD REMEDY 4 OZ OINT TP SCH (09:10)
[2022-10-02] MEDS: ACETAMINOPHEN 650 MG/SUPP.RECT RC PRN ×2 (09:10→17:03)
[2022-10-02 12:00] VITALS: BP 139/79; TEMP 98.7; O2SAT 95
[2022-10-02] MEDS: NEPRO 1,000 ML BOTTLE GT PRN (12:46)
[2022-10-02 16:00] VITALS: BP 135/96; TEMP 98.9; O2SAT 95
[2022-10-02 18:11] LABS: HEMOGLOBIN 8.3 g/dL (13.5-17.5)
[2022-10-02 20:00] VITALS: BP 133/88; TEMP 99.4; O2SAT 94
[2022-10-02] MEDS: POLYETHYLENE GLYCOL 3350 17 GM POWD.PACK PEG SCH (21:56)
[2022-10-03] VITALS: BP 130/67; TEMP 99.4; O2SAT 94
[2022-10-03] MEDS: K PHOS NEUTRAL 250 MG TABLET GT SCH ×5 (00:14→23:54)
[2022-10-03] MEDS: METOCLOPRAMIDE HCL 10 MG/2 ML VIAL IV SCH ×5 (00:14→23:55)
[2022-10-03 04:00] VITALS: BP 136/87; TEMP 98.8; O2SAT 95
[2022-10-03 06:42] LABS: BASOPHILS % (AUTO) 0.3 % (0.0-2.0); EOSINOPHILS # (AUTO) 0.1 K/uL (0.0-0.7); EOSINOPHILS % (AUTO) 1.2 % (0.0-6.0); HEMATOCRIT 26 % (39-51); HEMOGLOBIN 8.2 g/dL (13.5-17.5); LYMPHOCYTES # (AUTO) 0.9 K/uL (0.8-4.8); LYMPHOCYTES % (AUTO) 13.4 % (20.0-44.0); MEAN CORPUSCULAR HEMOGLOBIN 28 PG (26.0-33.0); MEAN CORPUSCULAR HGB CONC 32 g/dl (31.0-36.0); MEAN CORPUSCULAR VOLUME 88 fL (80-96); MONOCYTES # (AUTO) 0.7 K/uL (0.1-1.30); MONOCYTES % (AUTO) 10.5 % (2.0-12.0); NEUTROPHILS # (AUTO) 4.9 K/uL (1.8-8.9); NEUTROPHILS % (AUTO) 74.6 % (43.0-81.0); PLATELET COUNT (AUTO) 146 K/uL (150-450); RED BLOOD CELL COUNT(AUTO) 2.98 MIL/uL (4.5-6.0); RED CELL DISTRIBUTION WIDTH 16.2 % (11.5-15.0); WHITE BLOOD COUNT (AUTO) 6.6 K/uL (4.3-11.0)
[2022-10-03 07:04] LABS: CREATININE 3.6 mg/dL (0.6-1.3); POTASSIUM 3.4 mmol/L (3.5-5.1)
[2022-10-03 08:00] VITALS: BP 125/85; TEMP 98; O2SAT 95
[2022-10-03] MEDS: SUCRALFATE 1 G/10 ML UDC GT SCH ×4 (08:39→21:16)
[2022-10-03] MEDS: MINOXIDIL (2.5MG) 2.5 MG TABLET GT SCH ×2 (08:40→16:22)
[2022-10-03] MEDS: PANTOPRAZOLE 40 MG/PACK PACK GT SCH (08:40)
[2022-10-03] MEDS: THIAMINE HCL 100 MG TABLET GT SCH (08:40)
[2022-10-03] MEDS: LEVETIRACETAM SOL (5 ML) 100 MG/ML UDC GT SCH ×2 (08:40→16:21)
[2022-10-03] MEDS: OLANZAPINE 2.5 MG TABLET GT SCH (08:40)
[2022-10-03] MEDS: AMLODIPINE BESYLATE 5 MG TABLET PO SCH (08:40)
[2022-10-03] MEDS: CARVEDILOL 12.5 MG TABLET GT SCH ×2 (08:41→16:23)
[2022-10-03] MEDS: Z GUARD REMEDY 4 OZ OINT TP SCH (08:41)
[2022-10-03] MEDS: APIXABAN 2.5 MG TABLET GT SCH ×2 (08:44→16:24)
[2022-10-03] MEDS ORDERED: AMLO-212 PO (09:58)
[2022-10-03] MEDS: NEPRO 1,000 ML BOTTLE GT PRN (12:18)
[2022-10-03 12:50] VITALS: BP 120/80; TEMP 98.1; O2SAT 95
[2022-10-03] MEDS: ACETAMINOPHEN 650 MG/SUPP.RECT RC PRN (19:53)
[2022-10-03 20:00] VITALS: BP 124/74; TEMP 98.1; O2SAT 100
[2022-10-03] MEDS: POLYETHYLENE GLYCOL 3350 17 GM POWD.PACK PEG SCH (21:16)
[2022-10-04 04:00] VITALS: BP 113/70; TEMP 98.4; O2SAT 100
[2022-10-04 05:49] LABS: BASOPHILS % (AUTO) 0.3 % (0.0-2.0); EOSINOPHILS # (AUTO) 0.1 K/uL (0.0-0.7); EOSINOPHILS % (AUTO) 1.4 % (0.0-6.0); HEMATOCRIT 27 % (39-51); HEMOGLOBIN 8.6 g/dL (13.5-17.5); LYMPHOCYTES # (AUTO) 1.4 K/uL (0.8-4.8); LYMPHOCYTES % (AUTO) 14.4 % (20.0-44.0); MEAN CORPUSCULAR HEMOGLOBIN 29 PG (26.0-33.0); MEAN CORPUSCULAR HGB CONC 32 g/dl (31.0-36.0); MEAN CORPUSCULAR VOLUME 89 fL (80-96); MONOCYTES # (AUTO) 0.9 K/uL (0.1-1.30); NEUTROPHILS % (AUTO) 73.9 % (43.0-81.0); PLATELET COUNT (AUTO) 133 K/uL (150-450); RED BLOOD CELL COUNT(AUTO) 2.99 MIL/uL (4.5-6.0); RED CELL DISTRIBUTION WIDTH 16.7 % (11.5-15.0); WHITE BLOOD COUNT (AUTO) 9.4 K/uL (4.3-11.0)
[2022-10-04 06:08] LABS: CREATININE 3.5 mg/dL (0.6-1.3); POTASSIUM 3.5 mmol/L (3.5-5.1)
[2022-10-04] MEDS: K PHOS NEUTRAL 250 MG TABLET GT SCH ×4 (06:38→23:17)
[2022-10-04] MEDS: METOCLOPRAMIDE HCL 10 MG/2 ML VIAL IV SCH ×3 (07:26→19:22)
[2022-10-04] MEDS: SUCRALFATE 1 G/10 ML UDC GT SCH ×4 (08:57→21:09)
[2022-10-04] MEDS: CARVEDILOL 12.5 MG TABLET GT SCH ×2 (08:58→17:31)
[2022-10-04] MEDS: LEVETIRACETAM SOL (5 ML) 100 MG/ML UDC GT SCH ×2 (08:59→17:32)
[2022-10-04] MEDS: APIXABAN 2.5 MG TABLET GT SCH ×2 (08:59→17:32)
[2022-10-04] MEDS: PANTOPRAZOLE 40 MG/PACK PACK GT SCH (09:03)
[2022-10-04] MEDS: MINOXIDIL (2.5MG) 2.5 MG TABLET GT SCH ×2 (09:03→17:33)
[2022-10-04] MEDS: OLANZAPINE 2.5 MG TABLET GT SCH (09:04)
[2022-10-04] MEDS: THIAMINE HCL 100 MG TABLET GT SCH (09:04)
[2022-10-04] MEDS: AMLODIPINE BESYLATE 5 MG TABLET PO SCH (09:04)
[2022-10-04] MEDS: Z GUARD REMEDY 4 OZ OINT TP SCH (09:04)
[2022-10-04 12:00] VITALS: BP 86/51; TEMP 98.5; O2SAT 96
[2022-10-04 16:00] VITALS: BP 100/48; TEMP 98.8; O2SAT 98
[2022-10-04] MEDS: NEPRO 1,000 ML BOTTLE GT PRN (16:08)
[2022-10-04] MEDS: ACETAMINOPHEN 650 MG/SUPP.RECT RC PRN (18:07)
[2022-10-04 20:00] VITALS: BP 93/53; TEMP 98.2; O2SAT 98
[2022-10-04] MEDS: POLYETHYLENE GLYCOL 3350 17 GM POWD.PACK PEG SCH (21:09)
[2022-10-05] MEDS: METOCLOPRAMIDE HCL 10 MG/2 ML VIAL IV SCH ×3 (00:43→12:10)
[2022-10-05 04:00] VITALS: BP 120/50; TEMP 98; O2SAT 99
[2022-10-05] MEDS: ACETAMINOPHEN 650 MG/SUPP.RECT RC PRN (04:07)
[2022-10-05 06:10] LABS: BASOPHILS % (AUTO) 0.4 % (0.0-2.0); EOSINOPHILS # (AUTO) 0.1 K/uL (0.0-0.7); EOSINOPHILS % (AUTO) 0.8 % (0.0-6.0); HEMATOCRIT 25 % (39-51); HEMOGLOBIN 7.8 g/dL (13.5-17.5); LYMPHOCYTES # (AUTO) 0.9 K/uL (0.8-4.8); MEAN CORPUSCULAR HEMOGLOBIN 28 PG (26.0-33.0); MEAN CORPUSCULAR HGB CONC 32 g/dl (31.0-36.0); MEAN CORPUSCULAR VOLUME 88 fL (80-96); MONOCYTES % (AUTO) 10.9 % (2.0-12.0); NEUTROPHILS # (AUTO) 7.2 K/uL (1.8-8.9); NEUTROPHILS % (AUTO) 77.9 % (43.0-81.0); PLATELET COUNT (AUTO) 110 K/uL (150-450); RED BLOOD CELL COUNT(AUTO) 2.81 MIL/uL (4.5-6.0); RED CELL DISTRIBUTION WIDTH 16.1 % (11.5-15.0); WHITE BLOOD COUNT (AUTO) 9.3 K/uL (4.3-11.0)
[2022-10-05 06:11] LABS: CALCIUM, SERUM 9.9 mg/dL (8.5-10.1); CREATININE 3.5 mg/dL (0.6-1.3); POTASSIUM 3.5 mmol/L (3.5-5.1)
[2022-10-05] MEDS: K PHOS NEUTRAL 250 MG TABLET GT SCH ×2 (06:34→12:10)
[2022-10-05 07:53] VITALS: O2SAT 98
[2022-10-05] MEDS ORDERED: AMLODIPINE BESYLATE 5 MG TABLET GT SCH (08:46)
[2022-10-05] MEDS: CARVEDILOL 12.5 MG TABLET GT SCH (09:00)
[2022-10-05] MEDS: Z GUARD REMEDY 4 OZ OINT TP SCH (09:00)
[2022-10-05] MEDS: SUCRALFATE 1 G/10 ML UDC GT SCH ×2 (09:24→12:10)
[2022-10-05] MEDS: LEVETIRACETAM SOL (5 ML) 100 MG/ML UDC GT SCH (09:24)
[2022-10-05] MEDS: PANTOPRAZOLE 40 MG/PACK PACK GT SCH (09:25)
[2022-10-05] MEDS: THIAMINE HCL 100 MG TABLET GT SCH (09:25)
[2022-10-05] MEDS: OLANZAPINE 2.5 MG TABLET GT SCH (09:25)
[2022-10-05] MEDS: APIXABAN 2.5 MG TABLET GT SCH (09:45)
[2022-10-05 10:25] VITALS: BP 92/54; TEMP 98.5; O2SAT 98
[2022-10-05 13:23] VITALS: BP 102/59; TEMP 98.7; O2SAT 98
== END 2022-10-05 16:25 | DRG 871 ==
LOC: ER 14:13 → ICU 16:11 → TELE-TD 09-30 10:58 → MEDSG1 10-03 10:17
PROVIDERS: ADMIT Internal Medicine; ATTEND Internal Medicine
PROC: 5A1945Z Respiratory Ventilation, 24-96 Consecutive Hours (ICD-10-PCS; principal; 2022-09-21)
PROC: 0BH17EZ Insertion of Endotracheal Airway into Trachea, Via Natural or Artificial Opening (ICD-10-PCS; 2022-09-21)
PROC: 5A1D70Z Performance of Urinary Filtration, Intermittent, Less than 6 Hours Per Day (ICD-10-PCS; 2022-09-22)
PROC: 05H933Z Insertion of Infusion Device into Right Brachial Vein, Percutaneous Approach (ICD-10-PCS; 2022-09-22)
PROC: 5A09557 Assistance with Respiratory Ventilation, Greater than 96 Consecutive Hours, Continuous Positive Airway Pressure (ICD-10-PCS; 2022-09-27)
DX: A41.9 Sepsis, unspecified organism (principal); G93.41 Metabolic encephalopathy; J69.0 Pneumonitis due to inhalation of food and vomit; J96.02 Acute respiratory failure with hypercapnia; N18.6 End stage renal disease; I21.A1 Myocardial infarction type 2; R65.21 Severe sepsis with septic shock; J96.01 Acute respiratory failure with hypoxia; I50.43 Acute on chronic combined systolic (congestive) and diastolic (congestive) heart failure; I71.02 Dissection of abdominal aorta; E87.1 Hypo-osmolality and hyponatremia; E44.0 Moderate protein-calorie malnutrition; K56.7 Ileus, unspecified; R18.8 Other ascites; J98.11 Atelectasis; J90 Pleural effusion, not elsewhere classified; E87.29 Other acidosis; Z20.822 Contact with and (suspected) exposure to COVID-19; E11.22 Type 2 diabetes mellitus with diabetic chronic kidney disease; Z99.2 Dependence on renal dialysis; I25.10 Atherosclerotic heart disease of native coronary artery without angina pectoris; Z79.4 Long term (current) use of insulin; Z79.01 Long term (current) use of anticoagulants; Z79.899 Other long term (current) drug therapy; D63.8 Anemia in other chronic diseases classified elsewhere; E83.39 Other disorders of phosphorus metabolism; M89.8X9 Other specified disorders of bone, unspecified site; E87.6 Hypokalemia; R13.10 Dysphagia, unspecified; Z93.1 Gastrostomy status; Z95.1 Presence of aortocoronary bypass graft; Z86.73 Personal history of transient ischemic attack (TIA), and cerebral infarction without residual deficits; Z86.79 Personal history of other diseases of the circulatory system; I27.21 Secondary pulmonary arterial hypertension; F20.9 Schizophrenia, unspecified; E88.09 Other disorders of plasma-protein metabolism, not elsewhere classified; K76.9 Liver disease, unspecified; N28.1 Cyst of kidney, acquired; I70.0 Atherosclerosis of aorta; R42 Dizziness and giddiness
CPT/HCPCS: 31720; 36415; 36600; 70450-TC; 71045-TC; 71250-TC; 74018; 74183; 80048-TC; 80053-TC; 80061-TC; 80076-TC; 80202-TC; 82105; 82140-TC; 82272-TC; 82378; 82533; 82607-TC; 82728-TC; 82784; 82803-TC; 82962-TC; 83540-TC; 83605-TC; 83615-TC; 83735-TC; 83880; 84100-TC; 84155; 84165; 84443-TC; 84484-TC; 85025-TC; 85027-TC; 86301; 86334; 86704; 86803; 87040-TC; 87340; 87806; 90935-TC; 93307-TC; 94002-TC; 94003-TC; 94660; 94799-TC; A4216; A4223; A6403; A9575; C9113; C9803; G0378; J0456; J1720; J1953; J2250; J2543; J2765; J3370; J3490; J7030; J7042; J7050; J7060; P9047; Q9967

== ENCOUNTER 2023-01-19 10:07 | Inpatient (IN) | payer MEDICARE, OTHER ==
[~2023-01-19] VITALS: Ht 165.1 cm; Wt 61.7 kg
[~2023-01-19 10:07] MED LIST: ACET-2605 GT; ACET-868 GT; AMLO-212 PO; AMLO5TAB4 GT; APIX2.5T GT; ASCO-352 GT; BISA10SU11 RC; BLOO-668 IN; CALC500T88 GT; CARV25TA2 GT; CLON0.2T GT; CYAN-51 GT; DAPT500V2 IV; FAMO20TA8 PO; FERR220S2 GT; FOLI0.8T23 GT; FOLI0.8T3 GT; HYDR-4076 GT; HYDR-4303 GT; INSU100V42 SQ; LEVE100S GT; LOSA25TA3 GT; MAGN400O6 GT; MELA3TAB41 GT; MINO10TA2 GT; NA P133E RC; NEPRO 1.8; NORM210S TP; OLAN2.5T3 GT; PANT40TA49 GT; PROTEIN LIQUID GT; SENN-261 GT; SEVE0.8P3 GT; SUCR1ORA15 GT; THIA100T88 GT; ZINC220C6 GT
[2023-01-19 11:15] LABS: BASOPHILS % (AUTO) 0.1 % (0.0-2.0); CALCIUM, SERUM 9.3 mg/dL (8.5-10.1); CREATININE 2.4 mg/dL (0.6-1.3); EOSINOPHILS # (AUTO) 0.1 K/uL (0.0-0.7); EOSINOPHILS % (AUTO) 1.4 % (0.0-6.0); LYMPHOCYTES # (AUTO) 0.8 K/uL (0.8-4.8); LYMPHOCYTES % (AUTO) 8.9 % (20.0-44.0); MEAN CORPUSCULAR HEMOGLOBIN 27 PG (26.0-33.0); MEAN CORPUSCULAR HGB CONC 33 g/dl (31.0-36.0); MEAN CORPUSCULAR VOLUME 82 fL (80-96); MONOCYTES # (AUTO) 0.5 K/uL (0.1-1.30); MONOCYTES % (AUTO) 5.5 % (2.0-12.0); NEUTROPHILS # (AUTO) 7.4 K/uL (1.8-8.9); NEUTROPHILS % (AUTO) 84.1 % (43.0-81.0); PLATELET COUNT (AUTO) 168 K/uL (150-450); POTASSIUM 3.5 mmol/L (3.5-5.1); RED CELL DISTRIBUTION WIDTH 20.7 % (11.5-15.0); WHITE BLOOD COUNT (AUTO) 8.7 K/uL (4.3-11.0)
[2023-01-19 11:21] LABS: ALBUMIN 2.3 g/dL (3.4-5.0); BILIRUBIN,DIRECT 0.1 mg/dL (0.0-0.2); BILIRUBIN,TOTAL 0.3 mg/dL (0.2-1.0); TOTAL PROTEIN, SERUM 9.1 g/dL (6.4-8.2)
[2023-01-19 11:26] LABS: RED BLOOD CELL COUNT(AUTO) 1.73 MIL/uL (4.5-6.0)
[2023-01-19 11:27] LABS: HEMATOCRIT 14 % (39-51); HEMOGLOBIN 4.6 g/dL (13.5-17.5); INR 1.17 (0.91-1.10); PARTIAL THROMBOPLASTIN TIME 24.2 SEC (24.3-34.3); PROTHROMBIN TIME 12.3 SECS (9.2-11.1)
[2023-01-19] MEDS ORDERED: MIDO5TAB4 GT (11:54)
[2023-01-19] MEDS ORDERED: POLY17PO4 GT (11:54)
[2023-01-19] MEDS ORDERED: IRON100V6 IV (11:54)
[2023-01-19] MEDS ORDERED: FERR300L GT (11:54)
[2023-01-19] MEDS ORDERED: PANT40SU2 GT (11:54)
[2023-01-19] MEDS ORDERED: HONE15GE TP (11:54)
[2023-01-19] MEDS ORDERED: VANC500V IV (11:54)
[2023-01-19] MEDS ORDERED: ACET-2605 GT (11:54)
[2023-01-19] MEDS ORDERED: MAGNESIUM HYDROXIDE 30 ML UDC PO PRN (12:30)
[2023-01-19] MEDS ORDERED: VANCOMYCIN 500 MG VIAL IV SCH (12:30)
[2023-01-19] MEDS ORDERED: PANTOPRAZOLE 40 MG/PACK PACK GT SCH (12:30)
[2023-01-19] MEDS ORDERED: ONDANSETRON HCL/PF 4 MG/2 ML VIAL IVP PRN (12:30)
[2023-01-19] MEDS ORDERED: Z GUARD REMEDY 4 OZ OINT TP PRN (12:30)
[2023-01-19] MEDS ORDERED: CALCIUM CARBONATE (1250) 500 MG TABLET GT PRN (12:30)
[2023-01-19] MEDS ORDERED: NEPRO 1,000 ML BOTTLE GT PRN ×2 (12:30→17:30)
[2023-01-19] MEDS: SEVELAMER CARBONATE 800 MG POWD.PACK GT SCH ×2 (13:00→17:38)
[2023-01-19] MEDS: hydrALAZINE HCL 25 MG TABLET GT SCH ×3 (13:00→21:24)
[2023-01-19] MEDS: FERROUS SULFATE UDC 300 MG/5 ML UDC GT SCH ×2 (13:00→17:38)
[2023-01-19] MEDS: MIDODRINE HCL (5MG) 5 MG TABLET GT SCH ×2 (13:00→17:36)
[2023-01-19 13:30] LABS: ANISOCYTOSIS 1+; BASOPHILS % (MANUAL) 0 % (0.0-2.0); EOSINOPHILS % (MANUAL) 2 % (0-4); HYPOCHROMASIA 2+; LYMPHOCYTES % (MANUAL) 11 % (16-48); MONOCYTES % (MANUAL) 6 % (0-11.0); NEUTROPHILS % (MANUAL) 81 (42-76); PLATELET ESTIMATE ADEQUATE; TARGET CELLS 1+
[2023-01-19 16:00] VITALS: BP 116/72; TEMP 98.4; O2SAT 100
[2023-01-19] MEDS ORDERED: VANCOMYCIN 1 GM in IV D5W 250 ML IV ONE (17:00)
[2023-01-19] MEDS ORDERED: EPOETIN ALFA (2000 UNIT) 2,000 UNIT/ML VIAL SQ SCH (17:30)
[2023-01-19] MEDS: LEVETIRACETAM SOL (5 ML) 100 MG/ML UDC GT SCH (17:36)
[2023-01-19] MEDS: PANTOPRAZOLE 40 MG VIAL IV SCH (17:36)
[2023-01-19] MEDS: CARVEDILOL 12.5 MG TABLET GT SCH (17:37)
[2023-01-19 19:00] VITALS: BP 114/74; TEMP 98; O2SAT 100
[2023-01-19 20:00] VITALS: BP 114/74; TEMP 98; O2SAT 100
[2023-01-19 20:26] LABS: HEMOGLOBIN 4.2 g/dL (13.5-17.5)
[2023-01-19] MEDS: ACETAMINOPHEN 325 MG TABLET PO PRN (22:19)
[2023-01-20] VITALS (12 sets, daily range): BP systolic 115–137; BP diastolic 71–85; TEMP 97.9–99.9; O2SAT 100
[2023-01-20] MEDS: ACETAMINOPHEN 325 MG TABLET PO PRN (05:42)
[2023-01-20 06:30] LABS: BASOPHILS % (AUTO) 0.2 % (0.0-2.0); EOSINOPHILS # (AUTO) 0.1 K/uL (0.0-0.7); EOSINOPHILS % (AUTO) 0.6 % (0.0-6.0); LYMPHOCYTES # (AUTO) 0.8 K/uL (0.8-4.8); LYMPHOCYTES % (AUTO) 7.3 % (20.0-44.0); MEAN CORPUSCULAR HEMOGLOBIN 27 PG (26.0-33.0); MEAN CORPUSCULAR HGB CONC 32 g/dl (31.0-36.0); MEAN CORPUSCULAR VOLUME 84 fL (80-96); MONOCYTES # (AUTO) 0.6 K/uL (0.1-1.30); MONOCYTES % (AUTO) 6.1 % (2.0-12.0); NEUTROPHILS # (AUTO) 8.8 K/uL (1.8-8.9); NEUTROPHILS % (AUTO) 85.8 % (43.0-81.0); PLATELET COUNT (AUTO) 198 K/uL (150-450); RED BLOOD CELL COUNT(AUTO) 2.16 MIL/uL (4.5-6.0); RED CELL DISTRIBUTION WIDTH 19.6 % (11.5-15.0); WHITE BLOOD COUNT (AUTO) 10.3 K/uL (4.3-11.0)
[2023-01-20 06:54] LABS: ALBUMIN 2.1 g/dL (3.4-5.0); ALKALINE PHOSPHATASE 120 U/L (46-116); ASPARTATE AMINOTRANSFERASE 15 U/L (15-37); BILIRUBIN,TOTAL 0.3 mg/dL (0.2-1.0); CALCIUM, SERUM 9.4 mg/dL (8.5-10.1); CARBON DIOXIDE 31 mmol/L (21-32); CHLORIDE 90 mmol/L (98-107); CREATININE 3.5 mg/dL (0.6-1.3); GLUCOSE 91 mg/dL (74-106); MAGNESIUM 2.3 mg/dL (1.8-2.4); PHOSPHORUS 4.1 mg/dL (2.5-4.9); POTASSIUM 4.1 mmol/L (3.5-5.1); SODIUM SERUM 128 mmol/L (136-145); TOTAL PROTEIN, SERUM 8.7 g/dL (6.4-8.2); UREA NITROGEN, BLOOD 43 mg/dL (7-18)
[2023-01-20 07:00] LABS: ALANINE AMINOTRANSFERASE < 6 U/L (12-78)
[2023-01-20 07:43] LABS: HEMATOCRIT 18 % (39-51); HEMOGLOBIN 5.8 g/dL (13.5-17.5)
[2023-01-20 08:15] LABS: LYMPHOCYTES % (MANUAL) 8 % (16-48); MONOCYTES % (MANUAL) 7 % (0-11.0); NEUTROPHILS % (MANUAL) 85 (42-76); PLATELET ESTIMATE ADEQUATE
[2023-01-20 08:16] LABS: ANISOCYTOSIS 2+
[2023-01-20] MEDS: NEPRO 1,000 ML BOTTLE GT PRN (08:38)
[2023-01-20] MEDS: CEFEPIME 1 GM in IV D5W 50 ML IV SCH (09:01)
[2023-01-20] MEDS: FERROUS SULFATE UDC 300 MG/5 ML UDC GT SCH ×3 (09:47→16:42)
[2023-01-20] MEDS: LEVETIRACETAM SOL (5 ML) 100 MG/ML UDC GT SCH ×2 (09:47→16:42)
[2023-01-20] MEDS: SEVELAMER CARBONATE 800 MG POWD.PACK GT SCH ×3 (09:47→16:41)
[2023-01-20] MEDS: OLANZAPINE 2.5 MG TABLET GT SCH (09:47)
[2023-01-20] MEDS: hydrALAZINE HCL 25 MG TABLET GT SCH ×4 (09:48→21:19)
[2023-01-20] MEDS: MIDODRINE HCL (5MG) 5 MG TABLET GT SCH ×3 (09:48→16:42)
[2023-01-20] MEDS: PROSOURCE / PROSTAT (PYXIS) 30 ML UDC GT SCH ×2 (09:48→16:42)
[2023-01-20] MEDS: PANTOPRAZOLE 40 MG VIAL IV SCH ×2 (09:48→16:41)
[2023-01-20] MEDS: VIT B CMPLX 3/FA/VIT C/BIOTIN 1 TAB TABLET GT SCH (09:48)
[2023-01-20] MEDS: CARVEDILOL 12.5 MG TABLET GT SCH ×2 (09:49→16:42)
[2023-01-20] MEDS: EPOETIN ALFA (10,000 UNIT) 10,000 UNIT/ML VIAL SQ SCH (16:05)
[2023-01-20 20:30] LABS: HEMOGLOBIN 6.3 g/dL (13.5-17.5)
[2023-01-20] MEDS: ACETAMINOPHEN 650 MG/20.3 ML UDC GT PRN (21:28)
[2023-01-21] VITALS (18 sets, daily range): BP systolic 106–134; BP diastolic 66–83; TEMP 97.3–100.9; O2SAT 94–100
[2023-01-21] MEDS: ACETAMINOPHEN 650 MG/20.3 ML UDC GT PRN ×2 (03:13→16:11)
[2023-01-21] MEDS: NEPRO 1,000 ML BOTTLE GT PRN (03:18)
[2023-01-21] MEDS: VANCOMYCIN 500 MG in IV D5W 100 ML IV PRN (06:24)
[2023-01-21] MEDS: CEFEPIME 1 GM in IV D5W 50 ML IV SCH (08:04)
[2023-01-21] MEDS: VIT B CMPLX 3/FA/VIT C/BIOTIN 1 TAB TABLET GT SCH (08:37)
[2023-01-21] MEDS: FERROUS SULFATE UDC 300 MG/5 ML UDC GT SCH ×3 (08:37→16:29)
[2023-01-21] MEDS: OLANZAPINE 2.5 MG TABLET GT SCH (08:37)
[2023-01-21] MEDS: PANTOPRAZOLE 40 MG VIAL IV SCH ×2 (08:37→16:29)
[2023-01-21] MEDS: SEVELAMER CARBONATE 800 MG POWD.PACK GT SCH ×3 (08:37→16:29)
[2023-01-21] MEDS: PROSOURCE / PROSTAT (PYXIS) 30 ML UDC GT SCH ×2 (08:37→16:31)
[2023-01-21] MEDS: LEVETIRACETAM SOL (5 ML) 100 MG/ML UDC GT SCH ×2 (08:37→16:29)
[2023-01-21] MEDS: MIDODRINE HCL (5MG) 5 MG TABLET GT SCH ×3 (08:38→16:30)
[2023-01-21] MEDS: CARVEDILOL 12.5 MG TABLET GT SCH ×2 (08:38→16:30)
[2023-01-21] MEDS: hydrALAZINE HCL 25 MG TABLET GT SCH ×4 (08:38→20:59)
[2023-01-21 08:58] LABS: CALCIUM, SERUM 9.7 mg/dL (8.5-10.1); CREATININE 2.9 mg/dL (0.6-1.3); POTASSIUM 3.5 mmol/L (3.5-5.1)
[2023-01-21 20:50] LABS: HEMOGLOBIN 6.3 g/dL (13.5-17.5)
[2023-01-22] VITALS (11 sets, daily range): BP systolic 102–126; BP diastolic 65–81; TEMP 97.6–98.6; O2SAT 96–100
[2023-01-22 04:09] LABS: HEMOGLOBIN 7.4 g/dL (13.5-17.5)
[2023-01-22] MEDS: NEPRO 1,000 ML BOTTLE GT PRN (05:32)
[2023-01-22 07:14] LABS: CALCIUM, SERUM 9.6 mg/dL (8.5-10.1); CREATININE 3.9 mg/dL (0.6-1.3); POTASSIUM 3.7 mmol/L (3.5-5.1)
[2023-01-22] MEDS: PROSOURCE / PROSTAT (PYXIS) 30 ML UDC GT SCH ×2 (08:18→16:40)
[2023-01-22] MEDS: CEFEPIME 1 GM in IV D5W 50 ML IV SCH (08:18)
[2023-01-22] MEDS: MIDODRINE HCL (5MG) 5 MG TABLET GT SCH ×3 (09:00→16:41)
[2023-01-22] MEDS: CARVEDILOL 12.5 MG TABLET GT SCH ×2 (09:00→16:41)
[2023-01-22] MEDS: hydrALAZINE HCL 25 MG TABLET GT SCH ×4 (09:00→21:00)
[2023-01-22] MEDS: SEVELAMER CARBONATE 800 MG POWD.PACK GT SCH ×3 (09:17→16:40)
[2023-01-22] MEDS: OLANZAPINE 2.5 MG TABLET GT SCH (09:17)
[2023-01-22] MEDS: PANTOPRAZOLE 40 MG VIAL IV SCH (09:17)
[2023-01-22] MEDS: FERROUS SULFATE UDC 300 MG/5 ML UDC GT SCH ×3 (09:17→16:40)
[2023-01-22] MEDS: LEVETIRACETAM SOL (5 ML) 100 MG/ML UDC GT SCH ×2 (09:17→16:40)
[2023-01-22] MEDS: VIT B CMPLX 3/FA/VIT C/BIOTIN 1 TAB TABLET GT SCH (09:17)
[2023-01-22] MEDS: EPOETIN ALFA (10,000 UNIT) 10,000 UNIT/ML VIAL SQ SCH (15:55)
[2023-01-22] MEDS: PANTOPRAZOLE 40 MG/PACK PACK GT SCH (16:40)
[2023-01-23] VITALS: BP 113/74; TEMP 97.8; O2SAT 100
[2023-01-23] MEDS: hydrALAZINE HCL 25 MG TABLET GT SCH ×5 (01:58→20:49)
[2023-01-23 04:00] VITALS: BP 117/74; TEMP 98; O2SAT 98
[2023-01-23] MEDS: NEPRO 1,000 ML BOTTLE GT PRN (05:16)
[2023-01-23 06:44] LABS: CALCIUM, SERUM 9.7 mg/dL (8.5-10.1); CREATININE 4.8 mg/dL (0.6-1.3)
[2023-01-23 07:00] VITALS: BP 114/83; TEMP 98.1; O2SAT 100
[2023-01-23 07:30] LABS: HEMOGLOBIN 7.6 g/dL (13.5-17.5)
[2023-01-23] MEDS: CARVEDILOL 12.5 MG TABLET GT SCH ×2 (09:00→17:00)
[2023-01-23] MEDS: VIT B CMPLX 3/FA/VIT C/BIOTIN 1 TAB TABLET GT SCH (09:08)
[2023-01-23] MEDS: PANTOPRAZOLE 40 MG/PACK PACK GT SCH ×2 (09:08→17:12)
[2023-01-23] MEDS: FERROUS SULFATE UDC 300 MG/5 ML UDC GT SCH ×3 (09:08→17:12)
[2023-01-23] MEDS: OLANZAPINE 2.5 MG TABLET GT SCH (09:08)
[2023-01-23] MEDS: SEVELAMER CARBONATE 800 MG POWD.PACK GT SCH ×3 (09:08→17:12)
[2023-01-23] MEDS: LEVETIRACETAM SOL (5 ML) 100 MG/ML UDC GT SCH ×2 (09:08→17:12)
[2023-01-23] MEDS: MIDODRINE HCL (5MG) 5 MG TABLET GT SCH ×3 (09:12→17:12)
[2023-01-23] MEDS: PROSOURCE / PROSTAT (PYXIS) 30 ML UDC GT SCH ×2 (09:12→17:12)
[2023-01-23 12:16] VITALS: BP 103/68; TEMP 98; O2SAT 99
[2023-01-23] MEDS: VANCOMYCIN 500 MG in IV D5W 100 ML IV PRN (12:21)
[2023-01-23 16:00] VITALS: BP 116/69; TEMP 98.4; O2SAT 100
[2023-01-23 18:34] LABS: BASOPHILS % (AUTO) 0.2 % (0.0-2.0); EOSINOPHILS # (AUTO) 0.2 K/uL (0.0-0.7); HEMATOCRIT 27 % (39-51); HEMOGLOBIN 8.1 g/dL (13.5-17.5); LYMPHOCYTES # (AUTO) 1.3 K/uL (0.8-4.8); LYMPHOCYTES % (AUTO) 14.5 % (20.0-44.0); MEAN CORPUSCULAR HEMOGLOBIN 27 PG (26.0-33.0); MEAN CORPUSCULAR HGB CONC 30 g/dl (31.0-36.0); MEAN CORPUSCULAR VOLUME 87 fL (80-96); MONOCYTES # (AUTO) 0.8 K/uL (0.1-1.30); MONOCYTES % (AUTO) 9.3 % (2.0-12.0); NEUTROPHILS # (AUTO) 6.4 K/uL (1.8-8.9); PLATELET COUNT (AUTO) 217 K/uL (150-450); RED BLOOD CELL COUNT(AUTO) 3.06 MIL/uL (4.5-6.0); RED CELL DISTRIBUTION WIDTH 19.3 % (11.5-15.0); WHITE BLOOD COUNT (AUTO) 8.7 K/uL (4.3-11.0)
[2023-01-23 19:15] LABS: ANISOCYTOSIS 1+; EOSINOPHILS % (MANUAL) 1 % (0-4); HYPOCHROMASIA 1+; LYMPHOCYTES % (MANUAL) 15 % (16-48); MONOCYTES % (MANUAL) 4 % (0-11.0); NEUTROPHILS % (MANUAL) 80 (42-76); PLATELET ESTIMATE ADEQUATE; TARGET CELLS 1+
[2023-01-23 20:00] VITALS: BP 139/87; TEMP 98.8; O2SAT 100
[2023-01-24] VITALS: BP 130/77; TEMP 98.6; O2SAT 100
[2023-01-24] MEDS: ACETAMINOPHEN 650 MG/20.3 ML UDC GT PRN ×2 (04:37→13:11)
[2023-01-24] MEDS: NEPRO 1,000 ML BOTTLE GT PRN (04:52)
[2023-01-24 04:58] VITALS: BP 130/81; TEMP 99; O2SAT 100
[2023-01-24 06:07] LABS: BASOPHILS % (AUTO) 0.3 % (0.0-2.0); EOSINOPHILS # (AUTO) 0.1 K/uL (0.0-0.7); EOSINOPHILS % (AUTO) 1.9 % (0.0-6.0); HEMATOCRIT 26 % (39-51); HEMOGLOBIN 7.9 g/dL (13.5-17.5); LYMPHOCYTES # (AUTO) 1.2 K/uL (0.8-4.8); LYMPHOCYTES % (AUTO) 16.3 % (20.0-44.0); MEAN CORPUSCULAR HEMOGLOBIN 27 PG (26.0-33.0); MEAN CORPUSCULAR HGB CONC 31 g/dl (31.0-36.0); MEAN CORPUSCULAR VOLUME 87 fL (80-96); MONOCYTES # (AUTO) 0.8 K/uL (0.1-1.30); MONOCYTES % (AUTO) 10.6 % (2.0-12.0); NEUTROPHILS # (AUTO) 5.4 K/uL (1.8-8.9); NEUTROPHILS % (AUTO) 70.9 % (43.0-81.0); PLATELET COUNT (AUTO) 222 K/uL (150-450); RED BLOOD CELL COUNT(AUTO) 2.94 MIL/uL (4.5-6.0); RED CELL DISTRIBUTION WIDTH 18.9 % (11.5-15.0); WHITE BLOOD COUNT (AUTO) 7.6 K/uL (4.3-11.0)
[2023-01-24 06:30] LABS: ALANINE AMINOTRANSFERASE < 6 U/L (12-78); ALKALINE PHOSPHATASE 143 U/L (46-116); ASPARTATE AMINOTRANSFERASE 14 U/L (15-37); BILIRUBIN,TOTAL 0.3 mg/dL (0.2-1.0); CALCIUM, SERUM 9.7 mg/dL (8.5-10.1); CARBON DIOXIDE 29 mmol/L (21-32); CHLORIDE 97 mmol/L (98-107); CREATININE 3.9 mg/dL (0.6-1.3); GLUCOSE 103 mg/dL (74-106); SODIUM SERUM 132 mmol/L (136-145); TOTAL PROTEIN, SERUM 8.7 g/dL (6.4-8.2); UREA NITROGEN, BLOOD 51 mg/dL (7-18)
[2023-01-24 07:00] VITALS: BP 124/79; TEMP 97.9; O2SAT 99
[2023-01-24] MEDS: PROSOURCE / PROSTAT (PYXIS) 30 ML UDC GT SCH ×2 (07:35→16:59)
[2023-01-24 07:56] LABS: EOSINOPHILS % (MANUAL) 3 % (0-4); LYMPHOCYTES % (MANUAL) 14 % (16-48); MONOCYTES % (MANUAL) 9 % (0-11.0); NEUTROPHILS % (MANUAL) 74 (42-76); PLATELET ESTIMATE ADEQUATE
[2023-01-24 07:57] LABS: ANISOCYTOSIS 1+; TARGET CELLS 1+
[2023-01-24] MEDS: VIT B CMPLX 3/FA/VIT C/BIOTIN 1 TAB TABLET GT SCH (08:36)
[2023-01-24] MEDS: SEVELAMER CARBONATE 800 MG POWD.PACK GT SCH ×3 (08:36→16:35)
[2023-01-24] MEDS: OLANZAPINE 2.5 MG TABLET GT SCH (08:37)
[2023-01-24] MEDS: LEVETIRACETAM SOL (5 ML) 100 MG/ML UDC GT SCH ×2 (08:37→16:34)
[2023-01-24] MEDS: FERROUS SULFATE UDC 300 MG/5 ML UDC GT SCH ×3 (08:37→16:35)
[2023-01-24] MEDS: PANTOPRAZOLE 40 MG/PACK PACK GT SCH ×2 (08:37→16:35)
[2023-01-24] MEDS: MIDODRINE HCL (5MG) 5 MG TABLET GT SCH ×3 (08:41→16:58)
[2023-01-24] MEDS: CARVEDILOL 12.5 MG TABLET GT SCH ×2 (08:41→16:36)
[2023-01-24] MEDS: hydrALAZINE HCL 25 MG TABLET GT SCH ×4 (08:42→20:42)
[2023-01-24] MEDS: THERAHONEY GEL 1.5 OZ TUBE TP SCH (11:19)
[2023-01-24 12:00] VITALS: BP 134/86; TEMP 97.8; O2SAT 100
[2023-01-24 16:00] VITALS: BP 128/84; TEMP 97.8; O2SAT 100
[2023-01-24 18:17] LABS: BASOPHILS # (AUTO) 0.1 K/uL (0.0-0.2); EOSINOPHILS # (AUTO) 0.1 K/uL (0.0-0.7); HEMATOCRIT 25 % (39-51); HEMOGLOBIN 7.6 g/dL (13.5-17.5); LYMPHOCYTES # (AUTO) 0.7 K/uL (0.8-4.8); LYMPHOCYTES % (AUTO) 9.6 % (20.0-44.0); MEAN CORPUSCULAR HEMOGLOBIN 27 PG (26.0-33.0); MEAN CORPUSCULAR HGB CONC 31 g/dl (31.0-36.0); MEAN CORPUSCULAR VOLUME 86 fL (80-96); MONOCYTES # (AUTO) 0.9 K/uL (0.1-1.30); MONOCYTES % (AUTO) 12.6 % (2.0-12.0); NEUTROPHILS # (AUTO) 5.2 K/uL (1.8-8.9); NEUTROPHILS % (AUTO) 73.8 % (43.0-81.0); PLATELET COUNT (AUTO) 222 K/uL (150-450); RED BLOOD CELL COUNT(AUTO) 2.84 MIL/uL (4.5-6.0); RED CELL DISTRIBUTION WIDTH 18.7 % (11.5-15.0)
[2023-01-24 20:00] VITALS: BP 125/83; TEMP 98.6; O2SAT 100
[2023-01-24 22:36] LABS: EOSINOPHILS % (MANUAL) 4 % (0-4); LYMPHOCYTES % (MANUAL) 23 % (16-48); MONOCYTES % (MANUAL) 9 % (0-11.0); NEUTROPHILS % (MANUAL) 64 (42-76); PLATELET ESTIMATE ADEQUATE
[2023-01-24 22:37] LABS: ANISOCYTOSIS 1+
[2023-01-25] VITALS: BP 148/91; TEMP 98.5; O2SAT 97
[2023-01-25] MEDS: ACETAMINOPHEN 650 MG/20.3 ML UDC GT PRN ×2 (01:27→17:04)
[2023-01-25 04:00] VITALS: BP 125/82; TEMP 97.9; O2SAT 98
[2023-01-25] MEDS: NEPRO 1,000 ML BOTTLE GT PRN (05:32)
[2023-01-25 06:13] LABS: BASOPHILS % (AUTO) 0.5 % (0.0-2.0); EOSINOPHILS # (AUTO) 0.2 K/uL (0.0-0.7); EOSINOPHILS % (AUTO) 2.3 % (0.0-6.0); HEMATOCRIT 26 % (39-51); HEMOGLOBIN 8.1 g/dL (13.5-17.5); LYMPHOCYTES # (AUTO) 1.5 K/uL (0.8-4.8); LYMPHOCYTES % (AUTO) 20.1 % (20.0-44.0); MEAN CORPUSCULAR HEMOGLOBIN 27 PG (26.0-33.0); MEAN CORPUSCULAR HGB CONC 31 g/dl (31.0-36.0); MEAN CORPUSCULAR VOLUME 86 fL (80-96); MONOCYTES # (AUTO) 0.6 K/uL (0.1-1.30); MONOCYTES % (AUTO) 8.1 % (2.0-12.0); NEUTROPHILS # (AUTO) 5.2 K/uL (1.8-8.9); PLATELET COUNT (AUTO) 240 K/uL (150-450); RED BLOOD CELL COUNT(AUTO) 3.04 MIL/uL (4.5-6.0); RED CELL DISTRIBUTION WIDTH 18.5 % (11.5-15.0); WHITE BLOOD COUNT (AUTO) 7.5 K/uL (4.3-11.0)
[2023-01-25 06:33] LABS: ALBUMIN 2.1 g/dL (3.4-5.0); ALKALINE PHOSPHATASE 148 U/L (46-116); ASPARTATE AMINOTRANSFERASE 17 U/L (15-37); BILIRUBIN,TOTAL 0.3 mg/dL (0.2-1.0); CALCIUM, SERUM 10.4 mg/dL (8.5-10.1); CARBON DIOXIDE 29 mmol/L (21-32); CHLORIDE 96 mmol/L (98-107); CREATININE 4.8 mg/dL (0.6-1.3); GLUCOSE 96 mg/dL (74-106); POTASSIUM 4.4 mmol/L (3.5-5.1); SODIUM SERUM 130 mmol/L (136-145); TOTAL PROTEIN, SERUM 8.9 g/dL (6.4-8.2); UREA NITROGEN, BLOOD 71 mg/dL (7-18)
[2023-01-25 07:42] LABS: ALANINE AMINOTRANSFERASE < 6 U/L (12-78)
[2023-01-25 08:00] VITALS: BP 148/88; TEMP 98.6; O2SAT 99
[2023-01-25] MEDS: hydrALAZINE HCL 25 MG TABLET GT SCH ×4 (09:00→21:17)
[2023-01-25] MEDS: CARVEDILOL 12.5 MG TABLET GT SCH ×2 (09:00→17:01)
[2023-01-25] MEDS: PROSOURCE / PROSTAT (PYXIS) 30 ML UDC GT SCH ×2 (11:36→17:08)
[2023-01-25] MEDS: LEVETIRACETAM SOL (5 ML) 100 MG/ML UDC GT SCH ×2 (11:38→17:01)
[2023-01-25] MEDS: FERROUS SULFATE UDC 300 MG/5 ML UDC GT SCH ×3 (11:38→17:01)
[2023-01-25] MEDS: VIT B CMPLX 3/FA/VIT C/BIOTIN 1 TAB TABLET GT SCH (11:39)
[2023-01-25] MEDS: MIDODRINE HCL (5MG) 5 MG TABLET GT SCH ×3 (11:39→17:00)
[2023-01-25] MEDS: PANTOPRAZOLE 40 MG/PACK PACK GT SCH ×2 (11:39→17:03)
[2023-01-25] MEDS: SEVELAMER CARBONATE 800 MG POWD.PACK GT SCH ×3 (11:40→17:03)
[2023-01-25] MEDS: OLANZAPINE 2.5 MG TABLET GT SCH (11:40)
[2023-01-25] MEDS: THERAHONEY GEL 1.5 OZ TUBE TP SCH (11:41)
[2023-01-25] MEDS: EPOETIN ALFA (10,000 UNIT) 10,000 UNIT/ML VIAL SQ SCH (15:23)
[2023-01-25 16:00] VITALS: BP 151/95; TEMP 99; O2SAT 98
[2023-01-25 19:53] LABS: BASOPHILS % (AUTO) 0.5 % (0.0-2.0); EOSINOPHILS # (AUTO) 0.2 K/uL (0.0-0.7); HEMATOCRIT 26 % (39-51); HEMOGLOBIN 7.9 g/dL (13.5-17.5); LYMPHOCYTES # (AUTO) 1.4 K/uL (0.8-4.8); LYMPHOCYTES % (AUTO) 18.9 % (20.0-44.0); MEAN CORPUSCULAR HEMOGLOBIN 26 PG (26.0-33.0); MEAN CORPUSCULAR HGB CONC 31 g/dl (31.0-36.0); MEAN CORPUSCULAR VOLUME 86 fL (80-96); MONOCYTES # (AUTO) 0.7 K/uL (0.1-1.30); MONOCYTES % (AUTO) 8.8 % (2.0-12.0); NEUTROPHILS # (AUTO) 5.2 K/uL (1.8-8.9); NEUTROPHILS % (AUTO) 69.8 % (43.0-81.0); PLATELET COUNT (AUTO) 225 K/uL (150-450); RED BLOOD CELL COUNT(AUTO) 2.99 MIL/uL (4.5-6.0); RED CELL DISTRIBUTION WIDTH 18.7 % (11.5-15.0); WHITE BLOOD COUNT (AUTO) 7.4 K/uL (4.3-11.0)
[2023-01-25 20:00] VITALS: BP 143/93; TEMP 98.8; O2SAT 100
[2023-01-25 23:37] LABS: ANISOCYTOSIS 1+; BASOPHILS % (MANUAL) 0 % (0.0-2.0); EOSINOPHILS % (MANUAL) 2 % (0-4); HYPOCHROMASIA 1+; LYMPHOCYTES % (MANUAL) 16 % (16-48); MONOCYTES % (MANUAL) 9 % (0-11.0); NEUTROPHILS % (MANUAL) 73 (42-76); PLATELET ESTIMATE ADEQUATE
[2023-01-25 23:38] LABS: OVALOCYTES 1+
[2023-01-26] VITALS: BP_SYST 143; BP_SYST 149; BP_DIAS 100; BP_DIAS 99; TEMP 98.5; TEMP 98.7; O2SAT 100
[2023-01-26] MEDS: NEPRO 1,000 ML BOTTLE GT PRN (06:21)
[2023-01-26 07:00] VITALS: BP 149/95; TEMP 98.4; O2SAT 100
[2023-01-26 07:18] LABS: BASOPHILS % (AUTO) 0.4 % (0.0-2.0); EOSINOPHILS # (AUTO) 0.2 K/uL (0.0-0.7); EOSINOPHILS % (AUTO) 1.9 % (0.0-6.0); HEMATOCRIT 27 % (39-51); HEMOGLOBIN 8.3 g/dL (13.5-17.5); LYMPHOCYTES # (AUTO) 1.5 K/uL (0.8-4.8); LYMPHOCYTES % (AUTO) 16.7 % (20.0-44.0); MEAN CORPUSCULAR HEMOGLOBIN 27 PG (26.0-33.0); MEAN CORPUSCULAR HGB CONC 31 g/dl (31.0-36.0); MEAN CORPUSCULAR VOLUME 87 fL (80-96); MONOCYTES # (AUTO) 0.7 K/uL (0.1-1.30); NEUTROPHILS # (AUTO) 6.4 K/uL (1.8-8.9); PLATELET COUNT (AUTO) 249 K/uL (150-450); RED CELL DISTRIBUTION WIDTH 18.7 % (11.5-15.0); WHITE BLOOD COUNT (AUTO) 8.7 K/uL (4.3-11.0)
[2023-01-26 08:01] LABS: ALBUMIN 2.2 g/dL (3.4-5.0); BILIRUBIN,TOTAL 0.3 mg/dL (0.2-1.0); CALCIUM, SERUM 10.4 mg/dL (8.5-10.1); CREATININE 3.7 mg/dL (0.6-1.3); TOTAL PROTEIN, SERUM 9.5 g/dL (6.4-8.2)
[2023-01-26] MEDS: FERROUS SULFATE UDC 300 MG/5 ML UDC GT SCH ×3 (08:28→17:15)
[2023-01-26] MEDS: hydrALAZINE HCL 25 MG TABLET GT SCH ×4 (08:28→20:27)
[2023-01-26] MEDS: VIT B CMPLX 3/FA/VIT C/BIOTIN 1 TAB TABLET GT SCH (08:29)
[2023-01-26] MEDS: CARVEDILOL 12.5 MG TABLET GT SCH ×2 (08:29→17:16)
[2023-01-26] MEDS: SEVELAMER CARBONATE 800 MG POWD.PACK GT SCH ×3 (08:29→17:16)
[2023-01-26] MEDS: PANTOPRAZOLE 40 MG/PACK PACK GT SCH ×2 (08:29→17:15)
[2023-01-26] MEDS: OLANZAPINE 2.5 MG TABLET GT SCH (08:29)
[2023-01-26] MEDS: LEVETIRACETAM SOL (5 ML) 100 MG/ML UDC GT SCH ×2 (08:30→17:16)
[2023-01-26] MEDS: PROSOURCE / PROSTAT (PYXIS) 30 ML UDC GT SCH ×2 (08:30→17:17)
[2023-01-26] MEDS: MIDODRINE HCL (5MG) 5 MG TABLET GT SCH ×3 (09:00→17:00)
[2023-01-26] MEDS: THERAHONEY GEL 1.5 OZ TUBE TP SCH (09:26)
[2023-01-26 11:58] VITALS: BP 138/94; TEMP 98.6; O2SAT 100
[2023-01-26 16:00] VITALS: BP 140/90; TEMP 98.6; O2SAT 100
[2023-01-26 18:12] LABS: BASOPHILS % (AUTO) 0.4 % (0.0-2.0); EOSINOPHILS # (AUTO) 0.2 K/uL (0.0-0.7); EOSINOPHILS % (AUTO) 1.9 % (0.0-6.0); HEMATOCRIT 27 % (39-51); HEMOGLOBIN 8.3 g/dL (13.5-17.5); LYMPHOCYTES # (AUTO) 1.6 K/uL (0.8-4.8); LYMPHOCYTES % (AUTO) 19.7 % (20.0-44.0); MEAN CORPUSCULAR HEMOGLOBIN 27 PG (26.0-33.0); MEAN CORPUSCULAR HGB CONC 31 g/dl (31.0-36.0); MEAN CORPUSCULAR VOLUME 87 fL (80-96); MONOCYTES # (AUTO) 0.6 K/uL (0.1-1.30); MONOCYTES % (AUTO) 7.8 % (2.0-12.0); NEUTROPHILS # (AUTO) 5.8 K/uL (1.8-8.9); NEUTROPHILS % (AUTO) 70.2 % (43.0-81.0); PLATELET COUNT (AUTO) 233 K/uL (150-450); RED BLOOD CELL COUNT(AUTO) 3.12 MIL/uL (4.5-6.0); RED CELL DISTRIBUTION WIDTH 18.9 % (11.5-15.0); WHITE BLOOD COUNT (AUTO) 8.3 K/uL (4.3-11.0)
[2023-01-26 20:00] VITALS: BP 129/87; TEMP 99.1; O2SAT 99
[2023-01-27] VITALS: BP 138/88; TEMP 98.8; O2SAT 100
[2023-01-27] MEDS: NEPRO 1,000 ML BOTTLE GT PRN (03:33)
[2023-01-27 04:00] VITALS: BP 139/92; TEMP 99; O2SAT 100
[2023-01-27 06:43] LABS: BASOPHILS % (AUTO) 0.3 % (0.0-2.0); EOSINOPHILS # (AUTO) 0.2 K/uL (0.0-0.7); EOSINOPHILS % (AUTO) 1.5 % (0.0-6.0); HEMATOCRIT 27 % (39-51); HEMOGLOBIN 8.2 g/dL (13.5-17.5); LYMPHOCYTES # (AUTO) 1.4 K/uL (0.8-4.8); LYMPHOCYTES % (AUTO) 13.9 % (20.0-44.0); MEAN CORPUSCULAR HEMOGLOBIN 27 PG (26.0-33.0); MEAN CORPUSCULAR HGB CONC 31 g/dl (31.0-36.0); MEAN CORPUSCULAR VOLUME 87 fL (80-96); MONOCYTES # (AUTO) 0.6 K/uL (0.1-1.30); MONOCYTES % (AUTO) 6.3 % (2.0-12.0); PLATELET COUNT (AUTO) 230 K/uL (150-450); RED BLOOD CELL COUNT(AUTO) 3.06 MIL/uL (4.5-6.0); RED CELL DISTRIBUTION WIDTH 18.8 % (11.5-15.0); WHITE BLOOD COUNT (AUTO) 10.2 K/uL (4.3-11.0)
[2023-01-27 06:56] LABS: BILIRUBIN,TOTAL 0.3 mg/dL (0.2-1.0); CALCIUM, SERUM 10.5 mg/dL (8.5-10.1); CREATININE 4.6 mg/dL (0.6-1.3); POTASSIUM 3.9 mmol/L (3.5-5.1); TOTAL PROTEIN, SERUM 8.6 g/dL (6.4-8.2)
[2023-01-27 08:00] VITALS: BP 149/92; TEMP 97.6; O2SAT 99
[2023-01-27] MEDS: THERAHONEY GEL 1.5 OZ TUBE TP SCH (08:15)
[2023-01-27] MEDS: LEVETIRACETAM SOL (5 ML) 100 MG/ML UDC GT SCH ×2 (08:15→17:16)
[2023-01-27] MEDS: CARVEDILOL 12.5 MG TABLET GT SCH ×2 (08:15→17:17)
[2023-01-27] MEDS: OLANZAPINE 2.5 MG TABLET GT SCH (08:16)
[2023-01-27] MEDS: hydrALAZINE HCL 25 MG TABLET GT SCH ×4 (08:16→21:00)
[2023-01-27] MEDS: FERROUS SULFATE UDC 300 MG/5 ML UDC GT SCH ×3 (08:16→17:16)
[2023-01-27] MEDS: VIT B CMPLX 3/FA/VIT C/BIOTIN 1 TAB TABLET GT SCH (08:16)
[2023-01-27] MEDS: SEVELAMER CARBONATE 800 MG POWD.PACK GT SCH ×3 (08:16→17:16)
[2023-01-27] MEDS: PANTOPRAZOLE 40 MG/PACK PACK GT SCH ×2 (08:16→17:16)
[2023-01-27] MEDS: PROSOURCE / PROSTAT (PYXIS) 30 ML UDC GT SCH ×2 (08:17→17:16)
[2023-01-27] MEDS: MIDODRINE HCL (5MG) 5 MG TABLET GT SCH ×3 (09:00→17:00)
[2023-01-27] MEDS: EPOETIN ALFA (10,000 UNIT) 10,000 UNIT/ML VIAL SQ SCH (15:09)
[2023-01-27 15:36] VITALS: BP 147/95; TEMP 97.9; O2SAT 99
[2023-01-27 18:17] LABS: BASOPHILS % (AUTO) 0.1 % (0.0-2.0); EOSINOPHILS # (AUTO) 0.1 K/uL (0.0-0.7); EOSINOPHILS % (AUTO) 1.2 % (0.0-6.0); HEMATOCRIT 27 % (39-51); HEMOGLOBIN 8.4 g/dL (13.5-17.5); LYMPHOCYTES # (AUTO) 1.3 K/uL (0.8-4.8); LYMPHOCYTES % (AUTO) 10.8 % (20.0-44.0); MEAN CORPUSCULAR HEMOGLOBIN 27 PG (26.0-33.0); MEAN CORPUSCULAR HGB CONC 31 g/dl (31.0-36.0); MEAN CORPUSCULAR VOLUME 86 fL (80-96); MONOCYTES # (AUTO) 0.7 K/uL (0.1-1.30); MONOCYTES % (AUTO) 5.5 % (2.0-12.0); NEUTROPHILS # (AUTO) 10.1 K/uL (1.8-8.9); NEUTROPHILS % (AUTO) 82.4 % (43.0-81.0); PLATELET COUNT (AUTO) 212 K/uL (150-450); RED BLOOD CELL COUNT(AUTO) 3.17 MIL/uL (4.5-6.0); RED CELL DISTRIBUTION WIDTH 18.8 % (11.5-15.0); WHITE BLOOD COUNT (AUTO) 12.3 K/uL (4.3-11.0)
[2023-01-27 20:00] VITALS: TEMP 97.7
[2023-01-27] MEDS: VANCOMYCIN 500 MG in IV D5W 100 ML IV PRN (22:53)
[2023-01-28] VITALS (7 sets, daily range): BP systolic 142–171; BP diastolic 88–105; TEMP 97.8–99.3; O2SAT 98–100
[2023-01-28] MEDS: NEPRO 1,000 ML BOTTLE GT PRN (03:35)
[2023-01-28 05:59] LABS: BASOPHILS % (AUTO) 0.2 % (0.0-2.0); EOSINOPHILS # (AUTO) 0.1 K/uL (0.0-0.7); HEMATOCRIT 26 % (39-51); HEMOGLOBIN 8.1 g/dL (13.5-17.5); LYMPHOCYTES # (AUTO) 1.1 K/uL (0.8-4.8); LYMPHOCYTES % (AUTO) 11.1 % (20.0-44.0); MEAN CORPUSCULAR HEMOGLOBIN 27 PG (26.0-33.0); MEAN CORPUSCULAR HGB CONC 31 g/dl (31.0-36.0); MEAN CORPUSCULAR VOLUME 86 fL (80-96); MONOCYTES # (AUTO) 0.7 K/uL (0.1-1.30); MONOCYTES % (AUTO) 6.8 % (2.0-12.0); NEUTROPHILS # (AUTO) 8.3 K/uL (1.8-8.9); NEUTROPHILS % (AUTO) 80.9 % (43.0-81.0); PLATELET COUNT (AUTO) 208 K/uL (150-450); RED BLOOD CELL COUNT(AUTO) 3.01 MIL/uL (4.5-6.0); RED CELL DISTRIBUTION WIDTH 18.7 % (11.5-15.0); WHITE BLOOD COUNT (AUTO) 10.3 K/uL (4.3-11.0)
[2023-01-28 06:06] LABS: ALBUMIN 2.1 g/dL (3.4-5.0); BILIRUBIN,TOTAL 0.3 mg/dL (0.2-1.0); CALCIUM, SERUM 10.5 mg/dL (8.5-10.1); CREATININE 3.8 mg/dL (0.6-1.3); POTASSIUM 3.4 mmol/L (3.5-5.1); TOTAL PROTEIN, SERUM 8.8 g/dL (6.4-8.2)
[2023-01-28] MEDS: MIDODRINE HCL (5MG) 5 MG TABLET GT SCH ×3 (09:00→17:00)
[2023-01-28] MEDS: PROSOURCE / PROSTAT (PYXIS) 30 ML UDC GT SCH ×2 (09:08→17:10)
[2023-01-28] MEDS: SEVELAMER CARBONATE 800 MG POWD.PACK GT SCH ×3 (09:13→17:08)
[2023-01-28] MEDS: CARVEDILOL 12.5 MG TABLET GT SCH ×2 (09:14→17:08)
[2023-01-28] MEDS: VIT B CMPLX 3/FA/VIT C/BIOTIN 1 TAB TABLET GT SCH (09:14)
[2023-01-28] MEDS: LEVETIRACETAM SOL (5 ML) 100 MG/ML UDC GT SCH ×2 (09:14→17:08)
[2023-01-28] MEDS: PANTOPRAZOLE 40 MG/PACK PACK GT SCH ×2 (09:14→17:08)
[2023-01-28] MEDS: FERROUS SULFATE UDC 300 MG/5 ML UDC GT SCH ×3 (09:14→17:08)
[2023-01-28] MEDS: THERAHONEY GEL 1.5 OZ TUBE TP SCH (09:16)
[2023-01-28] MEDS: OLANZAPINE 2.5 MG TABLET GT SCH (09:16)
[2023-01-28] MEDS: hydrALAZINE HCL 25 MG TABLET GT SCH ×4 (09:18→21:57)
[2023-01-28] MEDS ORDERED: POTASSIUM CHLORIDE 20 MEQ POWDER PACKET GT ONE (13:30)
[2023-01-28 18:27] LABS: BASOPHILS % (AUTO) 0.2 % (0.0-2.0); EOSINOPHILS # (AUTO) 0.1 K/uL (0.0-0.7); EOSINOPHILS % (AUTO) 1.2 % (0.0-6.0); HEMATOCRIT 26 % (39-51); HEMOGLOBIN 7.9 g/dL (13.5-17.5); LYMPHOCYTES # (AUTO) 1.3 K/uL (0.8-4.8); LYMPHOCYTES % (AUTO) 12.5 % (20.0-44.0); MEAN CORPUSCULAR HEMOGLOBIN 27 PG (26.0-33.0); MEAN CORPUSCULAR HGB CONC 31 g/dl (31.0-36.0); MEAN CORPUSCULAR VOLUME 87 fL (80-96); MONOCYTES # (AUTO) 0.8 K/uL (0.1-1.30); MONOCYTES % (AUTO) 7.5 % (2.0-12.0); NEUTROPHILS # (AUTO) 8.4 K/uL (1.8-8.9); NEUTROPHILS % (AUTO) 78.6 % (43.0-81.0); PLATELET COUNT (AUTO) 195 K/uL (150-450); RED BLOOD CELL COUNT(AUTO) 2.94 MIL/uL (4.5-6.0); WHITE BLOOD COUNT (AUTO) 10.7 K/uL (4.3-11.0)
[2023-01-29] VITALS: BP 149/94; TEMP 99.1; O2SAT 98
[2023-01-29 06:17] LABS: BASOPHILS % (AUTO) 0.2 % (0.0-2.0); EOSINOPHILS # (AUTO) 0.1 K/uL (0.0-0.7); EOSINOPHILS % (AUTO) 1.3 % (0.0-6.0); HEMATOCRIT 27 % (39-51); HEMOGLOBIN 8.2 g/dL (13.5-17.5); LYMPHOCYTES # (AUTO) 1.6 K/uL (0.8-4.8); LYMPHOCYTES % (AUTO) 15.7 % (20.0-44.0); MEAN CORPUSCULAR HEMOGLOBIN 27 PG (26.0-33.0); MEAN CORPUSCULAR HGB CONC 31 g/dl (31.0-36.0); MEAN CORPUSCULAR VOLUME 87 fL (80-96); MONOCYTES # (AUTO) 0.8 K/uL (0.1-1.30); MONOCYTES % (AUTO) 7.3 % (2.0-12.0); NEUTROPHILS # (AUTO) 7.8 K/uL (1.8-8.9); NEUTROPHILS % (AUTO) 75.5 % (43.0-81.0); PLATELET COUNT (AUTO) 196 K/uL (150-450); RED BLOOD CELL COUNT(AUTO) 3.08 MIL/uL (4.5-6.0); RED CELL DISTRIBUTION WIDTH 19.5 % (11.5-15.0); WHITE BLOOD COUNT (AUTO) 10.4 K/uL (4.3-11.0)
[2023-01-29 06:29] LABS: ALBUMIN 2.1 g/dL (3.4-5.0); BILIRUBIN,TOTAL 0.4 mg/dL (0.2-1.0); CALCIUM, SERUM 10.7 mg/dL (8.5-10.1); CREATININE 4.9 mg/dL (0.6-1.3); TOTAL PROTEIN, SERUM 8.9 g/dL (6.4-8.2)
[2023-01-29 08:00] VITALS: BP 158/94; TEMP 98.9; O2SAT 100
[2023-01-29] MEDS: PROSOURCE / PROSTAT (PYXIS) 30 ML UDC GT SCH ×2 (08:00→16:38)
[2023-01-29] MEDS: MIDODRINE HCL (5MG) 5 MG TABLET GT SCH ×3 (09:00→17:00)
[2023-01-29] MEDS: SEVELAMER CARBONATE 800 MG POWD.PACK GT SCH ×3 (09:09→16:38)
[2023-01-29] MEDS: VIT B CMPLX 3/FA/VIT C/BIOTIN 1 TAB TABLET GT SCH (09:10)
[2023-01-29] MEDS: PANTOPRAZOLE 40 MG/PACK PACK GT SCH ×2 (09:10→16:39)
[2023-01-29] MEDS: CARVEDILOL 12.5 MG TABLET GT SCH ×2 (09:10→16:40)
[2023-01-29] MEDS: OLANZAPINE 2.5 MG TABLET GT SCH (09:10)
[2023-01-29] MEDS: LEVETIRACETAM SOL (5 ML) 100 MG/ML UDC GT SCH ×2 (09:10→16:39)
[2023-01-29] MEDS: FERROUS SULFATE UDC 300 MG/5 ML UDC GT SCH ×3 (09:10→16:39)
[2023-01-29] MEDS: hydrALAZINE HCL 25 MG TABLET GT SCH ×4 (09:11→20:16)
[2023-01-29] MEDS: THERAHONEY GEL 1.5 OZ TUBE TP SCH (09:30)
[2023-01-29] MEDS ORDERED: LIDOCAINE HCL/MPF 1% 30 ML VIAL IJ ONE (11:25)
[2023-01-29] MEDS ORDERED: IOHEXOL 0 ML IV ONE (11:25)
[2023-01-29] MEDS ORDERED: HEPARIN SODIUM, PORCINE 1,000 UNIT/ML VIAL ONE (11:25)
[2023-01-29 12:00] VITALS: BP 152/96; TEMP 98.6; O2SAT 100
[2023-01-29] MEDS: EPOETIN ALFA (10,000 UNIT) 10,000 UNIT/ML VIAL SQ SCH (14:55)
[2023-01-29 16:00] VITALS: BP 152/97; TEMP 98.4; O2SAT 99
[2023-01-29] MEDS: NEPRO 1,000 ML BOTTLE GT PRN (18:14)
[2023-01-29 18:37] LABS: BASOPHILS % (AUTO) 0.5 % (0.0-2.0); EOSINOPHILS # (AUTO) 0.2 K/uL (0.0-0.7); EOSINOPHILS % (AUTO) 1.5 % (0.0-6.0); HEMATOCRIT 28 % (39-51); HEMOGLOBIN 8.7 g/dL (13.5-17.5); LYMPHOCYTES # (AUTO) 1.2 K/uL (0.8-4.8); LYMPHOCYTES % (AUTO) 11.6 % (20.0-44.0); MEAN CORPUSCULAR HEMOGLOBIN 27 PG (26.0-33.0); MEAN CORPUSCULAR HGB CONC 31 g/dl (31.0-36.0); MEAN CORPUSCULAR VOLUME 87 fL (80-96); MONOCYTES # (AUTO) 0.7 K/uL (0.1-1.30); MONOCYTES % (AUTO) 6.8 % (2.0-12.0); NEUTROPHILS # (AUTO) 8.1 K/uL (1.8-8.9); NEUTROPHILS % (AUTO) 79.6 % (43.0-81.0); PLATELET COUNT (AUTO) 207 K/uL (150-450); RED BLOOD CELL COUNT(AUTO) 3.27 MIL/uL (4.5-6.0); RED CELL DISTRIBUTION WIDTH 19.5 % (11.5-15.0); WHITE BLOOD COUNT (AUTO) 10.1 K/uL (4.3-11.0)
[2023-01-29 20:00] VITALS: BP 151/95; TEMP 97.6; O2SAT 98
[2023-01-30] VITALS: BP 148/99; TEMP 98; TEMP 98.6; O2SAT 99
[2023-01-30] MEDS: VANCOMYCIN 500 MG in IV D5W 100 ML IV PRN (03:58)
[2023-01-30 04:00] VITALS: BP_SYST 147; BP_DIAS 101; BP_DIAS 99; TEMP 98.6; O2SAT 99
[2023-01-30 06:03] LABS: BASOPHILS % (AUTO) 0.3 % (0.0-2.0); EOSINOPHILS # (AUTO) 0.1 K/uL (0.0-0.7); EOSINOPHILS % (AUTO) 1.2 % (0.0-6.0); HEMATOCRIT 29 % (39-51); LYMPHOCYTES # (AUTO) 1.3 K/uL (0.8-4.8); MEAN CORPUSCULAR HEMOGLOBIN 27 PG (26.0-33.0); MEAN CORPUSCULAR HGB CONC 31 g/dl (31.0-36.0); MEAN CORPUSCULAR VOLUME 86 fL (80-96); MONOCYTES # (AUTO) 0.7 K/uL (0.1-1.30); MONOCYTES % (AUTO) 6.7 % (2.0-12.0); NEUTROPHILS # (AUTO) 8.8 K/uL (1.8-8.9); NEUTROPHILS % (AUTO) 79.8 % (43.0-81.0); PLATELET COUNT (AUTO) 196 K/uL (150-450); RED BLOOD CELL COUNT(AUTO) 3.34 MIL/uL (4.5-6.0); RED CELL DISTRIBUTION WIDTH 19.3 % (11.5-15.0)
[2023-01-30 06:08] LABS: ALBUMIN 2.1 g/dL (3.4-5.0); BILIRUBIN,TOTAL 0.4 mg/dL (0.2-1.0); CALCIUM, SERUM 10.3 mg/dL (8.5-10.1); CREATININE 3.5 mg/dL (0.6-1.3); POTASSIUM 3.7 mmol/L (3.5-5.1); TOTAL PROTEIN, SERUM 9.1 g/dL (6.4-8.2)
[2023-01-30 08:00] VITALS: BP 151/100; TEMP 99.2; O2SAT 100
[2023-01-30] MEDS: FERROUS SULFATE UDC 300 MG/5 ML UDC GT SCH ×3 (08:47→17:21)
[2023-01-30] MEDS: VIT B CMPLX 3/FA/VIT C/BIOTIN 1 TAB TABLET GT SCH (08:47)
[2023-01-30] MEDS: SEVELAMER CARBONATE 800 MG POWD.PACK GT SCH ×3 (08:47→17:21)
[2023-01-30] MEDS: PANTOPRAZOLE 40 MG/PACK PACK GT SCH ×2 (08:47→17:21)
[2023-01-30] MEDS: OLANZAPINE 2.5 MG TABLET GT SCH (08:47)
[2023-01-30] MEDS: LEVETIRACETAM SOL (5 ML) 100 MG/ML UDC GT SCH ×2 (08:47→17:20)
[2023-01-30] MEDS: PROSOURCE / PROSTAT (PYXIS) 30 ML UDC GT SCH ×2 (08:47→17:22)
[2023-01-30] MEDS: hydrALAZINE HCL 25 MG TABLET GT SCH ×4 (08:48→20:52)
[2023-01-30] MEDS: CARVEDILOL 12.5 MG TABLET GT SCH ×2 (08:48→17:21)
[2023-01-30] MEDS: MIDODRINE HCL (5MG) 5 MG TABLET GT SCH ×3 (08:49→17:00)
[2023-01-30] MEDS: THERAHONEY GEL 1.5 OZ TUBE TP SCH (08:59)
[2023-01-30 12:00] VITALS: BP 148/96; TEMP 98.4; O2SAT 100
[2023-01-30 16:00] VITALS: BP 146/93; TEMP 98.2; O2SAT 99
[2023-01-30] MEDS ORDERED: MIDODRINE HCL (5MG) 5 MG TABLET GT PRN (17:30)
[2023-01-30 18:48] LABS: BASOPHILS % (AUTO) 0.3 % (0.0-2.0); EOSINOPHILS # (AUTO) 0.1 K/uL (0.0-0.7); EOSINOPHILS % (AUTO) 1.4 % (0.0-6.0); HEMATOCRIT 28 % (39-51); HEMOGLOBIN 8.9 g/dL (13.5-17.5); LYMPHOCYTES # (AUTO) 1.8 K/uL (0.8-4.8); LYMPHOCYTES % (AUTO) 17.7 % (20.0-44.0); MEAN CORPUSCULAR HEMOGLOBIN 27 PG (26.0-33.0); MEAN CORPUSCULAR HGB CONC 31 g/dl (31.0-36.0); MEAN CORPUSCULAR VOLUME 85 fL (80-96); MONOCYTES # (AUTO) 0.8 K/uL (0.1-1.30); MONOCYTES % (AUTO) 7.5 % (2.0-12.0); NEUTROPHILS # (AUTO) 7.5 K/uL (1.8-8.9); NEUTROPHILS % (AUTO) 73.1 % (43.0-81.0); PLATELET COUNT (AUTO) 191 K/uL (150-450); RED BLOOD CELL COUNT(AUTO) 3.33 MIL/uL (4.5-6.0); RED CELL DISTRIBUTION WIDTH 19.5 % (11.5-15.0); WHITE BLOOD COUNT (AUTO) 10.2 K/uL (4.3-11.0)
[2023-01-30] MEDS: NEPRO 1,000 ML BOTTLE GT PRN (19:24)
[2023-01-30 20:00] VITALS: BP 156/98; TEMP 99.1; O2SAT 100
[2023-01-31] VITALS: BP 156/99; TEMP 98.6; O2SAT 100
[2023-01-31 04:00] VITALS: BP 147/94; TEMP 98.4; TEMP 99; O2SAT 99
[2023-01-31 06:31] LABS: BASOPHILS % (AUTO) 0.2 % (0.0-2.0); EOSINOPHILS # (AUTO) 0.1 K/uL (0.0-0.7); EOSINOPHILS % (AUTO) 1.4 % (0.0-6.0); HEMATOCRIT 28 % (39-51); LYMPHOCYTES # (AUTO) 1.4 K/uL (0.8-4.8); LYMPHOCYTES % (AUTO) 13.3 % (20.0-44.0); MEAN CORPUSCULAR HEMOGLOBIN 27 PG (26.0-33.0); MEAN CORPUSCULAR HGB CONC 32 g/dl (31.0-36.0); MEAN CORPUSCULAR VOLUME 85 fL (80-96); MONOCYTES # (AUTO) 0.7 K/uL (0.1-1.30); MONOCYTES % (AUTO) 7.1 % (2.0-12.0); NEUTROPHILS # (AUTO) 7.9 K/uL (1.8-8.9); PLATELET COUNT (AUTO) 186 K/uL (150-450); RED BLOOD CELL COUNT(AUTO) 3.32 MIL/uL (4.5-6.0); RED CELL DISTRIBUTION WIDTH 19.1 % (11.5-15.0); WHITE BLOOD COUNT (AUTO) 10.2 K/uL (4.3-11.0)
[2023-01-31 06:43] LABS: ALBUMIN 2.1 g/dL (3.4-5.0); BILIRUBIN,TOTAL 0.4 mg/dL (0.2-1.0); CALCIUM, SERUM 10.5 mg/dL (8.5-10.1); CREATININE 4.6 mg/dL (0.6-1.3); POTASSIUM 3.9 mmol/L (3.5-5.1); TOTAL PROTEIN, SERUM 9.1 g/dL (6.4-8.2)
[2023-01-31 08:00] VITALS: BP 153/96; TEMP 98.3; O2SAT 100
[2023-01-31] MEDS: SEVELAMER CARBONATE 800 MG POWD.PACK GT SCH ×3 (09:01→17:21)
[2023-01-31] MEDS: PROSOURCE / PROSTAT (PYXIS) 30 ML UDC GT SCH ×2 (09:01→17:23)
[2023-01-31] MEDS: OLANZAPINE 2.5 MG TABLET GT SCH (09:02)
[2023-01-31] MEDS: PANTOPRAZOLE 40 MG/PACK PACK GT SCH ×2 (09:02→17:22)
[2023-01-31] MEDS: CARVEDILOL 12.5 MG TABLET GT SCH ×2 (09:02→17:22)
[2023-01-31] MEDS: hydrALAZINE HCL 25 MG TABLET GT SCH ×4 (09:03→22:05)
[2023-01-31] MEDS: FERROUS SULFATE UDC 300 MG/5 ML UDC GT SCH ×3 (09:03→17:22)
[2023-01-31] MEDS: LEVETIRACETAM SOL (5 ML) 100 MG/ML UDC GT SCH ×2 (09:03→17:22)
[2023-01-31] MEDS: VIT B CMPLX 3/FA/VIT C/BIOTIN 1 TAB TABLET GT SCH (09:05)
[2023-01-31] MEDS: THERAHONEY GEL 1.5 OZ TUBE TP SCH (09:22)
[2023-01-31 16:00] VITALS: BP 137/83; TEMP 98.8; O2SAT 100
[2023-01-31 18:07] LABS: BASOPHILS # (AUTO) 0.1 K/uL (0.0-0.2); BASOPHILS % (AUTO) 0.5 % (0.0-2.0); EOSINOPHILS # (AUTO) 0.1 K/uL (0.0-0.7); EOSINOPHILS % (AUTO) 1.1 % (0.0-6.0); HEMATOCRIT 28 % (39-51); HEMOGLOBIN 8.8 g/dL (13.5-17.5); LYMPHOCYTES % (AUTO) 10.3 % (20.0-44.0); MEAN CORPUSCULAR HEMOGLOBIN 27 PG (26.0-33.0); MEAN CORPUSCULAR HGB CONC 31 g/dl (31.0-36.0); MEAN CORPUSCULAR VOLUME 86 fL (80-96); MONOCYTES # (AUTO) 0.5 K/uL (0.1-1.30); MONOCYTES % (AUTO) 5.6 % (2.0-12.0); NEUTROPHILS % (AUTO) 82.5 % (43.0-81.0); PLATELET COUNT (AUTO) 170 K/uL (150-450); RED BLOOD CELL COUNT(AUTO) 3.27 MIL/uL (4.5-6.0); RED CELL DISTRIBUTION WIDTH 18.9 % (11.5-15.0); WHITE BLOOD COUNT (AUTO) 9.6 K/uL (4.3-11.0)
[2023-01-31 20:00] VITALS: BP 137/86; TEMP 98.8; O2SAT 96
[2023-02-01 06:11] LABS: BASOPHILS % (AUTO) 0.2 % (0.0-2.0); EOSINOPHILS # (AUTO) 0.1 K/uL (0.0-0.7); EOSINOPHILS % (AUTO) 0.6 % (0.0-6.0); HEMATOCRIT 27 % (39-51); HEMOGLOBIN 8.6 g/dL (13.5-17.5); LYMPHOCYTES # (AUTO) 1.1 K/uL (0.8-4.8); LYMPHOCYTES % (AUTO) 10.1 % (20.0-44.0); MEAN CORPUSCULAR HEMOGLOBIN 27 PG (26.0-33.0); MEAN CORPUSCULAR HGB CONC 32 g/dl (31.0-36.0); MEAN CORPUSCULAR VOLUME 85 fL (80-96); MONOCYTES # (AUTO) 0.6 K/uL (0.1-1.30); MONOCYTES % (AUTO) 5.9 % (2.0-12.0); NEUTROPHILS % (AUTO) 83.2 % (43.0-81.0); PLATELET COUNT (AUTO) 160 K/uL (150-450); RED BLOOD CELL COUNT(AUTO) 3.17 MIL/uL (4.5-6.0); WHITE BLOOD COUNT (AUTO) 10.8 K/uL (4.3-11.0)
[2023-02-01 06:14] LABS: ALBUMIN 2.1 g/dL (3.4-5.0); BILIRUBIN,TOTAL 0.4 mg/dL (0.2-1.0); CALCIUM, SERUM 10.7 mg/dL (8.5-10.1); CREATININE 5.4 mg/dL (0.6-1.3); POTASSIUM 4.1 mmol/L (3.5-5.1); TOTAL PROTEIN, SERUM 8.9 g/dL (6.4-8.2)
[2023-02-01 08:00] VITALS: BP 151/96; TEMP 100.8; O2SAT 100
[2023-02-01] MEDS: VIT B CMPLX 3/FA/VIT C/BIOTIN 1 TAB TABLET GT SCH ×2 (09:00→09:14)
[2023-02-01] MEDS: OLANZAPINE 2.5 MG TABLET GT SCH (09:14)
[2023-02-01] MEDS: PANTOPRAZOLE 40 MG/PACK PACK GT SCH ×3 (09:14→17:52)
[2023-02-01] MEDS: FERROUS SULFATE UDC 300 MG/5 ML UDC GT SCH ×4 (09:14→17:52)
[2023-02-01] MEDS: LEVETIRACETAM SOL (5 ML) 100 MG/ML UDC GT SCH ×3 (09:14→17:52)
[2023-02-01] MEDS: SEVELAMER CARBONATE 800 MG POWD.PACK GT SCH ×4 (09:14→17:52)
[2023-02-01] MEDS: hydrALAZINE HCL 25 MG TABLET GT SCH ×5 (09:16→21:45)
[2023-02-01] MEDS: CARVEDILOL 12.5 MG TABLET GT SCH ×3 (09:16→17:52)
[2023-02-01] MEDS: ACETAMINOPHEN 650 MG/20.3 ML UDC GT PRN (09:19)
[2023-02-01] MEDS: THERAHONEY GEL 1.5 OZ TUBE TP SCH (09:27)
[2023-02-01] MEDS: PROSOURCE / PROSTAT (PYXIS) 30 ML UDC GT SCH ×2 (09:27→17:54)
[2023-02-01] MEDS ORDERED: IOHEXOL 50 ML IV ONE (09:37)
[2023-02-01] MEDS ORDERED: LIDOCAINE HCL/MPF 1% 30 ML VIAL IJ ONE (09:37)
[2023-02-01] MEDS ORDERED: HEPARIN SODIUM, PORCINE 1,000 UNIT/ML VIAL ONE (09:37)
[2023-02-01] MEDS ORDERED: IOHEXOL-300 100 ML VIAL IV ONE (13:05)
[2023-02-01] MEDS: EPOETIN ALFA (10,000 UNIT) 10,000 UNIT/ML VIAL SQ SCH (14:37)
[2023-02-01] MEDS ORDERED: ALBUMIN 5% 250 ML IV ONE (14:45)
[2023-02-01] MEDS ORDERED: FENTANYL PF 100MCG/2ML AMPUL ONE (14:45)
[2023-02-01] MEDS: NEPRO 1,000 ML BOTTLE GT PRN ×2 (17:53→21:34)
[2023-02-01 18:00] VITALS: BP 137/92; TEMP 97.7; O2SAT 100
[2023-02-01 18:32] LABS: BASOPHILS % (AUTO) 0.2 % (0.0-2.0); EOSINOPHILS # (AUTO) 0.1 K/uL (0.0-0.7); EOSINOPHILS % (AUTO) 0.7 % (0.0-6.0); HEMATOCRIT 25 % (39-51); HEMOGLOBIN 7.9 g/dL (13.5-17.5); LYMPHOCYTES # (AUTO) 0.9 K/uL (0.8-4.8); LYMPHOCYTES % (AUTO) 11.2 % (20.0-44.0); MEAN CORPUSCULAR HEMOGLOBIN 27 PG (26.0-33.0); MEAN CORPUSCULAR HGB CONC 31 g/dl (31.0-36.0); MEAN CORPUSCULAR VOLUME 85 fL (80-96); MONOCYTES # (AUTO) 0.4 K/uL (0.1-1.30); MONOCYTES % (AUTO) 4.7 % (2.0-12.0); NEUTROPHILS # (AUTO) 6.8 K/uL (1.8-8.9); NEUTROPHILS % (AUTO) 83.2 % (43.0-81.0); PLATELET COUNT (AUTO) 155 K/uL (150-450); RED BLOOD CELL COUNT(AUTO) 2.94 MIL/uL (4.5-6.0); RED CELL DISTRIBUTION WIDTH 19.1 % (11.5-15.0); WHITE BLOOD COUNT (AUTO) 8.1 K/uL (4.3-11.0)
[2023-02-01 19:04] LABS: ANISOCYTOSIS 1+; LYMPHOCYTES % (MANUAL) 13 % (16-48); MONOCYTES % (MANUAL) 6 % (0-11.0); NEUTROPHILS % (MANUAL) 81 (42-76); PLATELET ESTIMATE ADEQUATE
[2023-02-01 19:05] LABS: OVALOCYTES 1+; ROULEAUX 1+; TARGET CELLS 1+
[2023-02-01 20:00] VITALS: BP 132/88; TEMP 98.3; O2SAT 100
[2023-02-02 06:15] LABS: BASOPHILS % (AUTO) 0.4 % (0.0-2.0); EOSINOPHILS # (AUTO) 0.1 K/uL (0.0-0.7); EOSINOPHILS % (AUTO) 1.1 % (0.0-6.0); HEMATOCRIT 26 % (39-51); LYMPHOCYTES # (AUTO) 0.9 K/uL (0.8-4.8); MEAN CORPUSCULAR HEMOGLOBIN 27 PG (26.0-33.0); MEAN CORPUSCULAR HGB CONC 31 g/dl (31.0-36.0); MEAN CORPUSCULAR VOLUME 85 fL (80-96); MONOCYTES # (AUTO) 0.7 K/uL (0.1-1.30); MONOCYTES % (AUTO) 6.2 % (2.0-12.0); NEUTROPHILS % (AUTO) 84.3 % (43.0-81.0); PLATELET COUNT (AUTO) 172 K/uL (150-450); RED CELL DISTRIBUTION WIDTH 19.2 % (11.5-15.0); WHITE BLOOD COUNT (AUTO) 10.7 K/uL (4.3-11.0)
[2023-02-02 06:28] LABS: ALBUMIN 2.2 g/dL (3.4-5.0); BILIRUBIN,TOTAL 0.4 mg/dL (0.2-1.0); CALCIUM, SERUM 10.2 mg/dL (8.5-10.1); CREATININE 3.4 mg/dL (0.6-1.3); POTASSIUM 3.3 mmol/L (3.5-5.1); TOTAL PROTEIN, SERUM 8.9 g/dL (6.4-8.2)
[2023-02-02 08:00] VITALS: BP 139/89; TEMP 99.1; O2SAT 96
[2023-02-02] MEDS: PANTOPRAZOLE 40 MG/PACK PACK GT SCH ×2 (08:36→17:23)
[2023-02-02] MEDS: FERROUS SULFATE UDC 300 MG/5 ML UDC GT SCH ×3 (08:36→17:23)
[2023-02-02] MEDS: CARVEDILOL 12.5 MG TABLET GT SCH ×2 (08:36→17:24)
[2023-02-02] MEDS: VIT B CMPLX 3/FA/VIT C/BIOTIN 1 TAB TABLET GT SCH (08:36)
[2023-02-02] MEDS: SEVELAMER CARBONATE 800 MG POWD.PACK GT SCH ×3 (08:36→17:23)
[2023-02-02] MEDS: PROSOURCE / PROSTAT (PYXIS) 30 ML UDC GT SCH ×2 (08:36→17:24)
[2023-02-02] MEDS: hydrALAZINE HCL 25 MG TABLET GT SCH ×4 (08:37→21:15)
[2023-02-02] MEDS: OLANZAPINE 2.5 MG TABLET GT SCH (08:37)
[2023-02-02] MEDS: LEVETIRACETAM SOL (5 ML) 100 MG/ML UDC GT SCH ×2 (08:37→17:23)
[2023-02-02] MEDS: THERAHONEY GEL 1.5 OZ TUBE TP SCH (08:38)
[2023-02-02] MEDS ORDERED: POTASSIUM CHLORIDE 20 MEQ POWDER PACKET GT SCH (13:30)
[2023-02-02 16:00] VITALS: BP 154/84; TEMP 97.5; O2SAT 96
[2023-02-02 18:35] LABS: BASOPHILS % (AUTO) 0.4 % (0.0-2.0); EOSINOPHILS # (AUTO) 0.1 K/uL (0.0-0.7); EOSINOPHILS % (AUTO) 1.6 % (0.0-6.0); HEMATOCRIT 26 % (39-51); HEMOGLOBIN 8.2 g/dL (13.5-17.5); LYMPHOCYTES # (AUTO) 1.2 K/uL (0.8-4.8); LYMPHOCYTES % (AUTO) 13.7 % (20.0-44.0); MEAN CORPUSCULAR HEMOGLOBIN 27 PG (26.0-33.0); MEAN CORPUSCULAR HGB CONC 31 g/dl (31.0-36.0); MEAN CORPUSCULAR VOLUME 85 fL (80-96); MONOCYTES # (AUTO) 0.6 K/uL (0.1-1.30); MONOCYTES % (AUTO) 6.6 % (2.0-12.0); NEUTROPHILS # (AUTO) 6.9 K/uL (1.8-8.9); NEUTROPHILS % (AUTO) 77.7 % (43.0-81.0); PLATELET COUNT (AUTO) 170 K/uL (150-450); RED CELL DISTRIBUTION WIDTH 19.3 % (11.5-15.0); WHITE BLOOD COUNT (AUTO) 8.9 K/uL (4.3-11.0)
[2023-02-02 20:00] VITALS: BP 145/88; TEMP 98; O2SAT 100
[2023-02-03] MEDS: NEPRO 1,000 ML BOTTLE GT PRN (02:55)
[2023-02-03 06:23] LABS: BASOPHILS % (AUTO) 0.2 % (0.0-2.0); EOSINOPHILS # (AUTO) 0.1 K/uL (0.0-0.7); EOSINOPHILS % (AUTO) 1.5 % (0.0-6.0); HEMATOCRIT 27 % (39-51); HEMOGLOBIN 8.3 g/dL (13.5-17.5); LYMPHOCYTES # (AUTO) 1.1 K/uL (0.8-4.8); LYMPHOCYTES % (AUTO) 10.4 % (20.0-44.0); MEAN CORPUSCULAR HEMOGLOBIN 27 PG (26.0-33.0); MEAN CORPUSCULAR HGB CONC 31 g/dl (31.0-36.0); MEAN CORPUSCULAR VOLUME 86 fL (80-96); MONOCYTES # (AUTO) 0.7 K/uL (0.1-1.30); MONOCYTES % (AUTO) 6.6 % (2.0-12.0); NEUTROPHILS # (AUTO) 8.2 K/uL (1.8-8.9); NEUTROPHILS % (AUTO) 81.3 % (43.0-81.0); PLATELET COUNT (AUTO) 167 K/uL (150-450); RED BLOOD CELL COUNT(AUTO) 3.11 MIL/uL (4.5-6.0); RED CELL DISTRIBUTION WIDTH 18.8 % (11.5-15.0); WHITE BLOOD COUNT (AUTO) 10.1 K/uL (4.3-11.0)
[2023-02-03 06:55] LABS: ALBUMIN 2.1 g/dL (3.4-5.0); BILIRUBIN,TOTAL 0.3 mg/dL (0.2-1.0); CALCIUM, SERUM 10.4 mg/dL (8.5-10.1); CREATININE 4.4 mg/dL (0.6-1.3); POTASSIUM 3.8 mmol/L (3.5-5.1); TOTAL PROTEIN, SERUM 8.8 g/dL (6.4-8.2)
[2023-02-03 08:00] VITALS: BP 139/88; TEMP 98.3; O2SAT 99
[2023-02-03 08:06] LABS: HEPATITIS B SURFACE AB Reactive (.)
[2023-02-03] MEDS: hydrALAZINE HCL 25 MG TABLET GT SCH ×4 (09:00→21:25)
[2023-02-03] MEDS: CARVEDILOL 12.5 MG TABLET GT SCH ×2 (09:00→17:49)
[2023-02-03] MEDS: SEVELAMER CARBONATE 800 MG POWD.PACK GT SCH ×3 (09:00→17:49)
[2023-02-03] MEDS: PANTOPRAZOLE 40 MG/PACK PACK GT SCH ×2 (09:00→17:49)
[2023-02-03] MEDS: FERROUS SULFATE UDC 300 MG/5 ML UDC GT SCH ×3 (09:00→17:45)
[2023-02-03] MEDS: LEVETIRACETAM SOL (5 ML) 100 MG/ML UDC GT SCH ×2 (13:40→17:45)
[2023-02-03] MEDS: PROSOURCE / PROSTAT (PYXIS) 30 ML UDC GT SCH ×2 (13:40→17:42)
[2023-02-03] MEDS: OLANZAPINE 2.5 MG TABLET GT SCH (13:40)
[2023-02-03] MEDS: MORPHINE SULFATE INJ 2 MG/ML DISP.SYRIN IV PRN (13:50)
[2023-02-03 16:00] VITALS: BP 139/86; TEMP 97.5; O2SAT 96
[2023-02-03] MEDS: EPOETIN ALFA (10,000 UNIT) 10,000 UNIT/ML VIAL SQ SCH (17:38)
[2023-02-03] MEDS: THERAHONEY GEL 1.5 OZ TUBE TP SCH (17:40)
[2023-02-03] MEDS: VIT B CMPLX 3/FA/VIT C/BIOTIN 1 TAB TABLET GT SCH (17:50)
[2023-02-03 18:30] LABS: BASOPHILS % (AUTO) 0.3 % (0.0-2.0); EOSINOPHILS # (AUTO) 0.2 K/uL (0.0-0.7); EOSINOPHILS % (AUTO) 1.8 % (0.0-6.0); HEMATOCRIT 29 % (39-51); LYMPHOCYTES # (AUTO) 1.5 K/uL (0.8-4.8); LYMPHOCYTES % (AUTO) 15.3 % (20.0-44.0); MEAN CORPUSCULAR HEMOGLOBIN 27 PG (26.0-33.0); MEAN CORPUSCULAR HGB CONC 31 g/dl (31.0-36.0); MEAN CORPUSCULAR VOLUME 86 fL (80-96); MONOCYTES # (AUTO) 0.7 K/uL (0.1-1.30); MONOCYTES % (AUTO) 7.5 % (2.0-12.0); NEUTROPHILS # (AUTO) 7.4 K/uL (1.8-8.9); NEUTROPHILS % (AUTO) 75.1 % (43.0-81.0); PLATELET COUNT (AUTO) 179 K/uL (150-450); RED BLOOD CELL COUNT(AUTO) 3.38 MIL/uL (4.5-6.0); RED CELL DISTRIBUTION WIDTH 18.9 % (11.5-15.0); WHITE BLOOD COUNT (AUTO) 9.8 K/uL (4.3-11.0)
[2023-02-04 06:39] LABS: BASOPHILS % (AUTO) 0.2 % (0.0-2.0); EOSINOPHILS # (AUTO) 0.1 K/uL (0.0-0.7); EOSINOPHILS % (AUTO) 1.5 % (0.0-6.0); HEMATOCRIT 29 % (39-51); HEMOGLOBIN 9.1 g/dL (13.5-17.5); LYMPHOCYTES # (AUTO) 1.4 K/uL (0.8-4.8); LYMPHOCYTES % (AUTO) 14.5 % (20.0-44.0); MEAN CORPUSCULAR HEMOGLOBIN 27 PG (26.0-33.0); MEAN CORPUSCULAR HGB CONC 31 g/dl (31.0-36.0); MEAN CORPUSCULAR VOLUME 86 fL (80-96); MONOCYTES # (AUTO) 0.8 K/uL (0.1-1.30); MONOCYTES % (AUTO) 8.4 % (2.0-12.0); NEUTROPHILS # (AUTO) 7.4 K/uL (1.8-8.9); NEUTROPHILS % (AUTO) 75.4 % (43.0-81.0); PLATELET COUNT (AUTO) 176 K/uL (150-450); RED BLOOD CELL COUNT(AUTO) 3.38 MIL/uL (4.5-6.0); RED CELL DISTRIBUTION WIDTH 18.4 % (11.5-15.0); WHITE BLOOD COUNT (AUTO) 9.8 K/uL (4.3-11.0)
[2023-02-04] MEDS: NEPRO 1,000 ML BOTTLE GT PRN (06:43)
[2023-02-04 06:58] LABS: ALBUMIN 2.2 g/dL (3.4-5.0); BILIRUBIN,TOTAL 0.4 mg/dL (0.2-1.0); CALCIUM, SERUM 10.4 mg/dL (8.5-10.1); CREATININE 3.6 mg/dL (0.6-1.3); MAGNESIUM 2.3 mg/dL (1.8-2.4); PHOSPHORUS 2.1 mg/dL (2.5-4.9); POTASSIUM 3.5 mmol/L (3.5-5.1); TOTAL PROTEIN, SERUM 9.2 g/dL (6.4-8.2)
[2023-02-04 07:00] VITALS: BP 140/89; TEMP 98.2; O2SAT 98
[2023-02-04] MEDS: PROSOURCE / PROSTAT (PYXIS) 30 ML UDC GT SCH ×2 (08:52→17:37)
[2023-02-04] MEDS: hydrALAZINE HCL 25 MG TABLET GT SCH ×4 (08:52→20:22)
[2023-02-04] MEDS: FERROUS SULFATE UDC 300 MG/5 ML UDC GT SCH ×3 (08:53→17:34)
[2023-02-04] MEDS: PANTOPRAZOLE 40 MG/PACK PACK GT SCH ×2 (08:53→17:36)
[2023-02-04] MEDS: VIT B CMPLX 3/FA/VIT C/BIOTIN 1 TAB TABLET GT SCH (08:53)
[2023-02-04] MEDS: OLANZAPINE 2.5 MG TABLET GT SCH (08:53)
[2023-02-04] MEDS: CARVEDILOL 12.5 MG TABLET GT SCH ×2 (08:53→17:36)
[2023-02-04] MEDS: LEVETIRACETAM SOL (5 ML) 100 MG/ML UDC GT SCH ×2 (08:53→17:34)
[2023-02-04] MEDS: SEVELAMER CARBONATE 800 MG POWD.PACK GT SCH ×3 (08:53→17:34)
[2023-02-04] MEDS: THERAHONEY GEL 1.5 OZ TUBE TP SCH (08:55)
[2023-02-04] MEDS ORDERED: NEUTRA PHOS 1 POWD.PACKET PEG ONE (10:00)
[2023-02-04] MEDS: VANCOMYCIN 500 MG in IV D5W 100 ML IV PRN (10:08)
[2023-02-04 16:00] VITALS: BP 133/92; TEMP 98.2; O2SAT 99
[2023-02-04 18:16] LABS: BASOPHILS % (AUTO) 0.3 % (0.0-2.0); EOSINOPHILS # (AUTO) 0.2 K/uL (0.0-0.7); EOSINOPHILS % (AUTO) 1.9 % (0.0-6.0); HEMATOCRIT 27 % (39-51); HEMOGLOBIN 8.4 g/dL (13.5-17.5); LYMPHOCYTES # (AUTO) 1.6 K/uL (0.8-4.8); LYMPHOCYTES % (AUTO) 17.7 % (20.0-44.0); MEAN CORPUSCULAR HEMOGLOBIN 27 PG (26.0-33.0); MEAN CORPUSCULAR HGB CONC 31 g/dl (31.0-36.0); MEAN CORPUSCULAR VOLUME 86 fL (80-96); MONOCYTES # (AUTO) 0.9 K/uL (0.1-1.30); NEUTROPHILS # (AUTO) 6.4 K/uL (1.8-8.9); NEUTROPHILS % (AUTO) 70.1 % (43.0-81.0); PLATELET COUNT (AUTO) 168 K/uL (150-450); RED BLOOD CELL COUNT(AUTO) 3.19 MIL/uL (4.5-6.0); RED CELL DISTRIBUTION WIDTH 18.6 % (11.5-15.0); WHITE BLOOD COUNT (AUTO) 9.2 K/uL (4.3-11.0)
[2023-02-05] MEDS: MORPHINE SULFATE INJ 2 MG/ML DISP.SYRIN IV PRN (04:59)
[2023-02-05 05:50] LABS: BASOPHILS % (AUTO) 0.2 % (0.0-2.0); EOSINOPHILS # (AUTO) 0.2 K/uL (0.0-0.7); EOSINOPHILS % (AUTO) 2.4 % (0.0-6.0); HEMATOCRIT 28 % (39-51); HEMOGLOBIN 8.6 g/dL (13.5-17.5); LYMPHOCYTES # (AUTO) 1.2 K/uL (0.8-4.8); LYMPHOCYTES % (AUTO) 14.9 % (20.0-44.0); MEAN CORPUSCULAR HEMOGLOBIN 27 PG (26.0-33.0); MEAN CORPUSCULAR HGB CONC 31 g/dl (31.0-36.0); MEAN CORPUSCULAR VOLUME 86 fL (80-96); MONOCYTES # (AUTO) 0.7 K/uL (0.1-1.30); MONOCYTES % (AUTO) 9.2 % (2.0-12.0); NEUTROPHILS % (AUTO) 73.3 % (43.0-81.0); PLATELET COUNT (AUTO) 175 K/uL (150-450); RED BLOOD CELL COUNT(AUTO) 3.21 MIL/uL (4.5-6.0); RED CELL DISTRIBUTION WIDTH 18.2 % (11.5-15.0); WHITE BLOOD COUNT (AUTO) 8.1 K/uL (4.3-11.0)
[2023-02-05] MEDS: NEPRO 1,000 ML BOTTLE GT PRN (06:02)
[2023-02-05 06:33] LABS: ALBUMIN 2.2 g/dL (3.4-5.0); BILIRUBIN,TOTAL 0.4 mg/dL (0.2-1.0); CALCIUM, SERUM 10.6 mg/dL (8.5-10.1); CREATININE 4.8 mg/dL (0.6-1.3); MAGNESIUM 2.5 mg/dL (1.8-2.4); PHOSPHORUS 2.4 mg/dL (2.5-4.9)
[2023-02-05] MEDS ORDERED: MAGNESIUM HYDROXIDE 30 ML UDC GT PRN (07:08)
[2023-02-05 08:49] VITALS: BP 146/89; TEMP 97.7; O2SAT 99
[2023-02-05] MEDS: hydrALAZINE HCL 25 MG TABLET GT SCH ×5 (09:00→21:41)
[2023-02-05] MEDS: CARVEDILOL 12.5 MG TABLET GT SCH ×2 (09:00→17:00)
[2023-02-05] MEDS: PROSOURCE / PROSTAT (PYXIS) 30 ML UDC GT SCH ×2 (09:24→18:06)
[2023-02-05] MEDS: PANTOPRAZOLE 40 MG/PACK PACK GT SCH ×2 (09:41→18:06)
[2023-02-05] MEDS: SEVELAMER CARBONATE 800 MG POWD.PACK GT SCH ×3 (09:41→18:06)
[2023-02-05] MEDS: OLANZAPINE 2.5 MG TABLET GT SCH (09:41)
[2023-02-05] MEDS: THERAHONEY GEL 1.5 OZ TUBE TP SCH (09:43)
[2023-02-05] MEDS: FERROUS SULFATE UDC 300 MG/5 ML UDC GT SCH ×3 (09:44→18:06)
[2023-02-05] MEDS: LEVETIRACETAM SOL (5 ML) 100 MG/ML UDC GT SCH ×2 (09:44→18:06)
[2023-02-05] MEDS: VIT B CMPLX 3/FA/VIT C/BIOTIN 1 TAB TABLET GT SCH (09:44)
[2023-02-05] MEDS: EPOETIN ALFA (10,000 UNIT) 10,000 UNIT/ML VIAL SQ SCH (14:51)
[2023-02-05 15:50] VITALS: BP 126/82; TEMP 98.1; O2SAT 95
[2023-02-05 18:25] LABS: BASOPHILS % (AUTO) 0.4 % (0.0-2.0); EOSINOPHILS # (AUTO) 0.2 K/uL (0.0-0.7); EOSINOPHILS % (AUTO) 2.8 % (0.0-6.0); HEMATOCRIT 26 % (39-51); HEMOGLOBIN 8.2 g/dL (13.5-17.5); LYMPHOCYTES # (AUTO) 1.2 K/uL (0.8-4.8); LYMPHOCYTES % (AUTO) 14.1 % (20.0-44.0); MEAN CORPUSCULAR HEMOGLOBIN 27 PG (26.0-33.0); MEAN CORPUSCULAR HGB CONC 31 g/dl (31.0-36.0); MEAN CORPUSCULAR VOLUME 85 fL (80-96); MONOCYTES # (AUTO) 0.7 K/uL (0.1-1.30); MONOCYTES % (AUTO) 8.7 % (2.0-12.0); NEUTROPHILS # (AUTO) 6.4 K/uL (1.8-8.9); PLATELET COUNT (AUTO) 167 K/uL (150-450); RED BLOOD CELL COUNT(AUTO) 3.08 MIL/uL (4.5-6.0); RED CELL DISTRIBUTION WIDTH 17.8 % (11.5-15.0); WHITE BLOOD COUNT (AUTO) 8.6 K/uL (4.3-11.0)
[2023-02-05 20:00] VITALS: BP 142/91; TEMP 98.6; O2SAT 98
[2023-02-05 20:02] LABS: ANISOCYTOSIS 1+; EOSINOPHILS % (MANUAL) 2 % (0-4); LYMPHOCYTES % (MANUAL) 17 % (16-48); MONOCYTES % (MANUAL) 7 % (0-11.0); NEUTROPHILS % (MANUAL) 74 (42-76); PLATELET ESTIMATE ADEQUATE; TARGET CELLS 1+
[2023-02-06 06:18] LABS: BASOPHILS % (AUTO) 0.2 % (0.0-2.0); EOSINOPHILS # (AUTO) 0.1 K/uL (0.0-0.7); EOSINOPHILS % (AUTO) 1.1 % (0.0-6.0); HEMATOCRIT 27 % (39-51); HEMOGLOBIN 8.5 g/dL (13.5-17.5); LYMPHOCYTES % (AUTO) 10.4 % (20.0-44.0); MEAN CORPUSCULAR HEMOGLOBIN 27 PG (26.0-33.0); MEAN CORPUSCULAR HGB CONC 31 g/dl (31.0-36.0); MEAN CORPUSCULAR VOLUME 84 fL (80-96); MONOCYTES # (AUTO) 0.7 K/uL (0.1-1.30); MONOCYTES % (AUTO) 7.3 % (2.0-12.0); NEUTROPHILS # (AUTO) 7.4 K/uL (1.8-8.9); PLATELET COUNT (AUTO) 165 K/uL (150-450); RED BLOOD CELL COUNT(AUTO) 3.21 MIL/uL (4.5-6.0); RED CELL DISTRIBUTION WIDTH 18.3 % (11.5-15.0); WHITE BLOOD COUNT (AUTO) 9.2 K/uL (4.3-11.0)
[2023-02-06 06:41] LABS: ALBUMIN 2.3 g/dL (3.4-5.0); BILIRUBIN,TOTAL 0.4 mg/dL (0.2-1.0); CREATININE 3.9 mg/dL (0.6-1.3); MAGNESIUM 2.1 mg/dL (1.8-2.4); PHOSPHORUS 1.4 mg/dL (2.5-4.9); POTASSIUM 3.5 mmol/L (3.5-5.1); TOTAL PROTEIN, SERUM 9.4 g/dL (6.4-8.2)
[2023-02-06 08:00] VITALS: BP 144/92; TEMP 97.8; O2SAT 99
[2023-02-06] MEDS: VANCOMYCIN 500 MG in IV D5W 100 ML IV PRN (08:15)
[2023-02-06] MEDS: PROSOURCE / PROSTAT (PYXIS) 30 ML UDC GT SCH ×2 (08:32→16:10)
[2023-02-06] MEDS: SEVELAMER CARBONATE 800 MG POWD.PACK GT SCH ×3 (08:49→16:09)
[2023-02-06] MEDS: LEVETIRACETAM SOL (5 ML) 100 MG/ML UDC GT SCH ×2 (08:49→16:09)
[2023-02-06] MEDS: OLANZAPINE 2.5 MG TABLET GT SCH (08:49)
[2023-02-06] MEDS: VIT B CMPLX 3/FA/VIT C/BIOTIN 1 TAB TABLET GT SCH (08:49)
[2023-02-06] MEDS: PANTOPRAZOLE 40 MG/PACK PACK GT SCH ×2 (08:49→16:09)
[2023-02-06] MEDS: FERROUS SULFATE UDC 300 MG/5 ML UDC GT SCH ×3 (08:49→16:09)
[2023-02-06] MEDS: CARVEDILOL 12.5 MG TABLET GT SCH ×2 (08:50→16:10)
[2023-02-06] MEDS: hydrALAZINE HCL 25 MG TABLET GT SCH ×4 (08:50→22:01)
[2023-02-06] MEDS: THERAHONEY GEL 1.5 OZ TUBE TP SCH (09:01)
[2023-02-06] MEDS ORDERED: NEUTRA PHOS 1 POWD.PACKET PO ONE (11:30)
[2023-02-06] MEDS: NEPRO 1,000 ML BOTTLE GT PRN (14:50)
[2023-02-06 16:00] VITALS: BP 138/87; TEMP 97.9; O2SAT 99
[2023-02-06] MEDS: MORPHINE SULFATE INJ 2 MG/ML DISP.SYRIN IV PRN (18:27)
[2023-02-06 18:28] LABS: BASOPHILS % (AUTO) 0.4 % (0.0-2.0); EOSINOPHILS # (AUTO) 0.1 K/uL (0.0-0.7); EOSINOPHILS % (AUTO) 1.2 % (0.0-6.0); HEMATOCRIT 26 % (39-51); HEMOGLOBIN 8.1 g/dL (13.5-17.5); LYMPHOCYTES # (AUTO) 1.1 K/uL (0.8-4.8); LYMPHOCYTES % (AUTO) 11.7 % (20.0-44.0); MEAN CORPUSCULAR HEMOGLOBIN 26 PG (26.0-33.0); MEAN CORPUSCULAR HGB CONC 31 g/dl (31.0-36.0); MEAN CORPUSCULAR VOLUME 85 fL (80-96); MONOCYTES # (AUTO) 0.6 K/uL (0.1-1.30); MONOCYTES % (AUTO) 6.8 % (2.0-12.0); NEUTROPHILS # (AUTO) 7.2 K/uL (1.8-8.9); NEUTROPHILS % (AUTO) 79.9 % (43.0-81.0); PLATELET COUNT (AUTO) 155 K/uL (150-450); RED BLOOD CELL COUNT(AUTO) 3.09 MIL/uL (4.5-6.0)
[2023-02-06 20:00] VITALS: BP 135/85; TEMP 98.2; O2SAT 98
[2023-02-07] MEDS: ACETAMINOPHEN 650 MG/20.3 ML UDC GT PRN (05:19)
[2023-02-07] MEDS: VIT B CMPLX 3/FA/VIT C/BIOTIN 1 TAB TABLET GT SCH (08:20)
[2023-02-07] MEDS: FERROUS SULFATE UDC 300 MG/5 ML UDC GT SCH ×3 (08:20→17:11)
[2023-02-07] MEDS: PANTOPRAZOLE 40 MG/PACK PACK GT SCH ×2 (08:20→17:12)
[2023-02-07] MEDS: OLANZAPINE 2.5 MG TABLET GT SCH (08:20)
[2023-02-07] MEDS: LEVETIRACETAM SOL (5 ML) 100 MG/ML UDC GT SCH ×2 (08:20→17:11)
[2023-02-07] MEDS: hydrALAZINE HCL 25 MG TABLET GT SCH ×4 (08:20→21:53)
[2023-02-07] MEDS: SEVELAMER CARBONATE 800 MG POWD.PACK GT SCH ×3 (08:20→17:12)
[2023-02-07] MEDS: PROSOURCE / PROSTAT (PYXIS) 30 ML UDC GT SCH ×2 (08:20→17:13)
[2023-02-07] MEDS: THERAHONEY GEL 1.5 OZ TUBE TP SCH (08:24)
[2023-02-07] MEDS: CARVEDILOL 12.5 MG TABLET GT SCH ×2 (08:24→17:12)
[2023-02-07 10:39] LABS: BASOPHILS % (AUTO) 0.3 % (0.0-2.0); EOSINOPHILS # (AUTO) 0.1 K/uL (0.0-0.7); HEMATOCRIT 24 % (39-51); HEMOGLOBIN 7.8 g/dL (13.5-17.5); LYMPHOCYTES # (AUTO) 1.2 K/uL (0.8-4.8); LYMPHOCYTES % (AUTO) 12.4 % (20.0-44.0); MEAN CORPUSCULAR HEMOGLOBIN 27 PG (26.0-33.0); MEAN CORPUSCULAR HGB CONC 32 g/dl (31.0-36.0); MEAN CORPUSCULAR VOLUME 83 fL (80-96); MONOCYTES # (AUTO) 0.5 K/uL (0.1-1.30); MONOCYTES % (AUTO) 5.3 % (2.0-12.0); NEUTROPHILS # (AUTO) 8.1 K/uL (1.8-8.9); PLATELET COUNT (AUTO) 156 K/uL (150-450); RED BLOOD CELL COUNT(AUTO) 2.92 MIL/uL (4.5-6.0); RED CELL DISTRIBUTION WIDTH 18.1 % (11.5-15.0)
[2023-02-07 10:51] LABS: ALBUMIN 1.9 g/dL (3.4-5.0); BILIRUBIN,TOTAL 0.3 mg/dL (0.2-1.0); CALCIUM, SERUM 9.8 mg/dL (8.5-10.1); CREATININE 4.8 mg/dL (0.6-1.3); MAGNESIUM 2.3 mg/dL (1.8-2.4); PHOSPHORUS 1.8 mg/dL (2.5-4.9); POTASSIUM 3.7 mmol/L (3.5-5.1); TOTAL PROTEIN, SERUM 8.3 g/dL (6.4-8.2)
[2023-02-07 16:56] VITALS: BP 121/81; TEMP 97.6; O2SAT 100
[2023-02-07 18:34] LABS: BASOPHILS % (AUTO) 0.2 % (0.0-2.0); EOSINOPHILS # (AUTO) 0.1 K/uL (0.0-0.7); EOSINOPHILS % (AUTO) 0.7 % (0.0-6.0); HEMATOCRIT 27 % (39-51); HEMOGLOBIN 8.3 g/dL (13.5-17.5); LYMPHOCYTES # (AUTO) 0.7 K/uL (0.8-4.8); LYMPHOCYTES % (AUTO) 7.5 % (20.0-44.0); MEAN CORPUSCULAR HEMOGLOBIN 26 PG (26.0-33.0); MEAN CORPUSCULAR HGB CONC 31 g/dl (31.0-36.0); MEAN CORPUSCULAR VOLUME 85 fL (80-96); MONOCYTES # (AUTO) 0.6 K/uL (0.1-1.30); MONOCYTES % (AUTO) 6.4 % (2.0-12.0); NEUTROPHILS # (AUTO) 7.9 K/uL (1.8-8.9); NEUTROPHILS % (AUTO) 85.2 % (43.0-81.0); PLATELET COUNT (AUTO) 158 K/uL (150-450); RED BLOOD CELL COUNT(AUTO) 3.18 MIL/uL (4.5-6.0); RED CELL DISTRIBUTION WIDTH 18.2 % (11.5-15.0); WHITE BLOOD COUNT (AUTO) 9.3 K/uL (4.3-11.0)
[2023-02-07 20:09] LABS: ANISOCYTOSIS 1+; HYPOCHROMASIA 1+; LYMPHOCYTES % (MANUAL) 8 % (16-48); MONOCYTES % (MANUAL) 5 % (0-11.0); NEUTROPHILS % (MANUAL) 87 (42-76); OVALOCYTES 1+; PLATELET ESTIMATE ADEQUATE; STOMATOCYTES 1+; TARGET CELLS 1+
[2023-02-07 20:40] VITALS: BP 150/92; TEMP 98.6; O2SAT 96
[2023-02-08] MEDS: NEPRO 1,000 ML BOTTLE GT PRN (03:44)
[2023-02-08 06:15] LABS: BASOPHILS % (AUTO) 0.2 % (0.0-2.0); EOSINOPHILS # (AUTO) 0.1 K/uL (0.0-0.7); EOSINOPHILS % (AUTO) 0.7 % (0.0-6.0); HEMATOCRIT 27 % (39-51); HEMOGLOBIN 8.6 g/dL (13.5-17.5); LYMPHOCYTES # (AUTO) 1.2 K/uL (0.8-4.8); LYMPHOCYTES % (AUTO) 11.3 % (20.0-44.0); MEAN CORPUSCULAR HEMOGLOBIN 26 PG (26.0-33.0); MEAN CORPUSCULAR HGB CONC 31 g/dl (31.0-36.0); MEAN CORPUSCULAR VOLUME 84 fL (80-96); MONOCYTES # (AUTO) 0.7 K/uL (0.1-1.30); MONOCYTES % (AUTO) 6.7 % (2.0-12.0); NEUTROPHILS # (AUTO) 8.9 K/uL (1.8-8.9); NEUTROPHILS % (AUTO) 81.1 % (43.0-81.0); PLATELET COUNT (AUTO) 164 K/uL (150-450); RED BLOOD CELL COUNT(AUTO) 3.26 MIL/uL (4.5-6.0); RED CELL DISTRIBUTION WIDTH 17.9 % (11.5-15.0); WHITE BLOOD COUNT (AUTO) 10.9 K/uL (4.3-11.0)
[2023-02-08 06:51] LABS: ALBUMIN 2.1 g/dL (3.4-5.0); BILIRUBIN,TOTAL 0.4 mg/dL (0.2-1.0); CALCIUM, SERUM 9.8 mg/dL (8.5-10.1); CREATININE 3.8 mg/dL (0.6-1.3); POTASSIUM 3.3 mmol/L (3.5-5.1); TOTAL PROTEIN, SERUM 9.1 g/dL (6.4-8.2)
[2023-02-08 07:00] VITALS: BP 140/83; TEMP 98.1; O2SAT 99
[2023-02-08] MEDS: PROSOURCE / PROSTAT (PYXIS) 30 ML UDC GT SCH ×2 (08:37→17:50)
[2023-02-08] MEDS: FERROUS SULFATE UDC 300 MG/5 ML UDC GT SCH ×3 (08:37→17:48)
[2023-02-08] MEDS: OLANZAPINE 2.5 MG TABLET GT SCH (08:38)
[2023-02-08] MEDS: VIT B CMPLX 3/FA/VIT C/BIOTIN 1 TAB TABLET GT SCH (08:38)
[2023-02-08] MEDS: LEVETIRACETAM SOL (5 ML) 100 MG/ML UDC GT SCH ×2 (08:38→17:48)
[2023-02-08] MEDS: SEVELAMER CARBONATE 800 MG POWD.PACK GT SCH ×3 (08:38→17:48)
[2023-02-08] MEDS: CARVEDILOL 12.5 MG TABLET GT SCH ×2 (08:38→17:48)
[2023-02-08] MEDS: PANTOPRAZOLE 40 MG/PACK PACK GT SCH ×2 (08:38→17:48)
[2023-02-08] MEDS: THERAHONEY GEL 1.5 OZ TUBE TP SCH (08:39)
[2023-02-08] MEDS: hydrALAZINE HCL 25 MG TABLET GT SCH ×4 (08:39→21:11)
[2023-02-08] MEDS: EPOETIN ALFA (10,000 UNIT) 10,000 UNIT/ML VIAL SQ SCH (14:46)
[2023-02-08 16:00] VITALS: BP 139/76; TEMP 98.7; O2SAT 98
[2023-02-08 18:25] LABS: BASOPHILS % (AUTO) 0.4 % (0.0-2.0); EOSINOPHILS # (AUTO) 0.1 K/uL (0.0-0.7); EOSINOPHILS % (AUTO) 0.9 % (0.0-6.0); HEMATOCRIT 27 % (39-51); HEMOGLOBIN 8.3 g/dL (13.5-17.5); LYMPHOCYTES # (AUTO) 1.4 K/uL (0.8-4.8); LYMPHOCYTES % (AUTO) 12.5 % (20.0-44.0); MEAN CORPUSCULAR HEMOGLOBIN 26 PG (26.0-33.0); MEAN CORPUSCULAR HGB CONC 31 g/dl (31.0-36.0); MEAN CORPUSCULAR VOLUME 84 fL (80-96); MONOCYTES # (AUTO) 0.8 K/uL (0.1-1.30); MONOCYTES % (AUTO) 7.2 % (2.0-12.0); NEUTROPHILS # (AUTO) 8.6 K/uL (1.8-8.9); PLATELET COUNT (AUTO) 168 K/uL (150-450); RED BLOOD CELL COUNT(AUTO) 3.17 MIL/uL (4.5-6.0); RED CELL DISTRIBUTION WIDTH 18.1 % (11.5-15.0); WHITE BLOOD COUNT (AUTO) 10.8 K/uL (4.3-11.0)
[2023-02-08 19:04] LABS: LYMPHOCYTES % (MANUAL) 9 % (16-48); MONOCYTES % (MANUAL) 4 % (0-11.0); NEUTROPHILS % (MANUAL) 87 (42-76); PLATELET ESTIMATE ADEQUATE
[2023-02-08 19:05] LABS: ANISOCYTOSIS 1+; ROULEAUX 1+
[2023-02-08 19:06] LABS: OVALOCYTES RARE; TARGET CELLS 1+
[2023-02-09] MEDS: NEPRO 1,000 ML BOTTLE GT PRN (04:52)
[2023-02-09 06:23] LABS: BASOPHILS % (AUTO) 0.2 % (0.0-2.0); EOSINOPHILS # (AUTO) 0.1 K/uL (0.0-0.7); EOSINOPHILS % (AUTO) 1.4 % (0.0-6.0); HEMATOCRIT 26 % (39-51); HEMOGLOBIN 8.3 g/dL (13.5-17.5); LYMPHOCYTES # (AUTO) 1.2 K/uL (0.8-4.8); LYMPHOCYTES % (AUTO) 15.2 % (20.0-44.0); MEAN CORPUSCULAR HEMOGLOBIN 27 PG (26.0-33.0); MEAN CORPUSCULAR HGB CONC 32 g/dl (31.0-36.0); MEAN CORPUSCULAR VOLUME 84 fL (80-96); MONOCYTES # (AUTO) 0.6 K/uL (0.1-1.30); MONOCYTES % (AUTO) 7.2 % (2.0-12.0); NEUTROPHILS # (AUTO) 6.2 K/uL (1.8-8.9); PLATELET COUNT (AUTO) 161 K/uL (150-450); RED BLOOD CELL COUNT(AUTO) 3.11 MIL/uL (4.5-6.0); RED CELL DISTRIBUTION WIDTH 18.4 % (11.5-15.0); WHITE BLOOD COUNT (AUTO) 8.1 K/uL (4.3-11.0)
[2023-02-09 07:27] LABS: ALBUMIN 2.1 g/dL (3.4-5.0); BILIRUBIN,TOTAL 0.3 mg/dL (0.2-1.0); CREATININE 4.9 mg/dL (0.6-1.3); MAGNESIUM 2.4 mg/dL (1.8-2.4); PHOSPHORUS 1.9 mg/dL (2.5-4.9); POTASSIUM 3.4 mmol/L (3.5-5.1)
[2023-02-09 08:00] VITALS: BP 131/76; TEMP 98.4; O2SAT 99
[2023-02-09] MEDS: CARVEDILOL 12.5 MG TABLET GT SCH ×2 (09:00→16:58)
[2023-02-09] MEDS: hydrALAZINE HCL 25 MG TABLET GT SCH ×4 (09:00→21:47)
[2023-02-09] MEDS: PANTOPRAZOLE 40 MG/PACK PACK GT SCH ×2 (09:31→16:58)
[2023-02-09] MEDS: OLANZAPINE 2.5 MG TABLET GT SCH (09:31)
[2023-02-09] MEDS: VIT B CMPLX 3/FA/VIT C/BIOTIN 1 TAB TABLET GT SCH (09:31)
[2023-02-09] MEDS: SEVELAMER CARBONATE 800 MG POWD.PACK GT SCH ×3 (09:31→16:58)
[2023-02-09] MEDS: LEVETIRACETAM SOL (5 ML) 100 MG/ML UDC GT SCH ×2 (09:31→16:57)
[2023-02-09] MEDS: FERROUS SULFATE UDC 300 MG/5 ML UDC GT SCH ×3 (09:31→16:57)
[2023-02-09] MEDS: PROSOURCE / PROSTAT (PYXIS) 30 ML UDC GT SCH ×2 (09:32→16:58)
[2023-02-09] MEDS: THERAHONEY GEL 1.5 OZ TUBE TP SCH (10:33)
[2023-02-09] MEDS: VANCOMYCIN 500 MG in IV D5W 100 ML IV PRN (13:53)
[2023-02-09 15:54] VITALS: BP 109/72; TEMP 97.9; O2SAT 99
[2023-02-09 18:35] LABS: BASOPHILS % (AUTO) 0.5 % (0.0-2.0); EOSINOPHILS # (AUTO) 0.2 K/uL (0.0-0.7); EOSINOPHILS % (AUTO) 2.6 % (0.0-6.0); HEMATOCRIT 26 % (39-51); LYMPHOCYTES % (AUTO) 16.5 % (20.0-44.0); MEAN CORPUSCULAR HEMOGLOBIN 26 PG (26.0-33.0); MEAN CORPUSCULAR HGB CONC 31 g/dl (31.0-36.0); MEAN CORPUSCULAR VOLUME 85 fL (80-96); MONOCYTES # (AUTO) 0.6 K/uL (0.1-1.30); MONOCYTES % (AUTO) 9.5 % (2.0-12.0); NEUTROPHILS # (AUTO) 4.5 K/uL (1.8-8.9); NEUTROPHILS % (AUTO) 70.9 % (43.0-81.0); PLATELET COUNT (AUTO) 154 K/uL (150-450); RED BLOOD CELL COUNT(AUTO) 3.07 MIL/uL (4.5-6.0); RED CELL DISTRIBUTION WIDTH 17.8 % (11.5-15.0); WHITE BLOOD COUNT (AUTO) 6.4 K/uL (4.3-11.0)
[2023-02-09 19:00] VITALS: BP 114/70; TEMP 98.8; O2SAT 99
[2023-02-10] MEDS: NEPRO 1,000 ML BOTTLE GT PRN (06:15)
[2023-02-10 07:05] LABS: BASOPHILS % (AUTO) 0.3 % (0.0-2.0); EOSINOPHILS # (AUTO) 0.2 K/uL (0.0-0.7); HEMATOCRIT 29 % (39-51); LYMPHOCYTES # (AUTO) 1.1 K/uL (0.8-4.8); LYMPHOCYTES % (AUTO) 13.2 % (20.0-44.0); MEAN CORPUSCULAR HEMOGLOBIN 27 PG (26.0-33.0); MEAN CORPUSCULAR HGB CONC 32 g/dl (31.0-36.0); MEAN CORPUSCULAR VOLUME 85 fL (80-96); MONOCYTES # (AUTO) 0.6 K/uL (0.1-1.30); MONOCYTES % (AUTO) 8.1 % (2.0-12.0); NEUTROPHILS # (AUTO) 6.1 K/uL (1.8-8.9); NEUTROPHILS % (AUTO) 76.4 % (43.0-81.0); PLATELET COUNT (AUTO) 161 K/uL (150-450); RED BLOOD CELL COUNT(AUTO) 3.36 MIL/uL (4.5-6.0); RED CELL DISTRIBUTION WIDTH 18.1 % (11.5-15.0)
[2023-02-10 07:14] LABS: CALCIUM, SERUM 10.2 mg/dL (8.5-10.1); CREATININE 4.2 mg/dL (0.6-1.3); MAGNESIUM 2.4 mg/dL (1.8-2.4); PHOSPHORUS 1.8 mg/dL (2.5-4.9); POTASSIUM 3.6 mmol/L (3.5-5.1)
[2023-02-10 08:00] VITALS: BP_SYST 119; BP_SYST 137; BP_DIAS 65; BP_DIAS 83; TEMP 97.7; TEMP 98.1; O2SAT 100; O2SAT 96
[2023-02-10] MEDS: FERROUS SULFATE UDC 300 MG/5 ML UDC GT SCH ×3 (09:30→16:21)
[2023-02-10] MEDS: VIT B CMPLX 3/FA/VIT C/BIOTIN 1 TAB TABLET GT SCH (09:30)
[2023-02-10] MEDS: PANTOPRAZOLE 40 MG/PACK PACK GT SCH ×2 (09:30→16:19)
[2023-02-10] MEDS: SEVELAMER CARBONATE 800 MG POWD.PACK GT SCH ×3 (09:30→16:19)
[2023-02-10] MEDS: LEVETIRACETAM SOL (5 ML) 100 MG/ML UDC GT SCH ×2 (09:30→16:20)
[2023-02-10] MEDS: OLANZAPINE 2.5 MG TABLET GT SCH (09:30)
[2023-02-10] MEDS: CARVEDILOL 12.5 MG TABLET GT SCH ×2 (09:31→16:21)
[2023-02-10] MEDS: hydrALAZINE HCL 25 MG TABLET GT SCH ×4 (09:32→21:36)
[2023-02-10] MEDS: THERAHONEY GEL 1.5 OZ TUBE TP SCH (09:32)
[2023-02-10] MEDS: PROSOURCE / PROSTAT (PYXIS) 30 ML UDC GT SCH ×2 (09:34→16:22)
[2023-02-10] MEDS: EPOETIN ALFA (10,000 UNIT) 10,000 UNIT/ML VIAL SQ SCH (15:50)
[2023-02-10 16:28] VITALS: BP 127/82; TEMP 97.7; O2SAT 100
[2023-02-10] MEDS: MORPHINE SULFATE INJ 2 MG/ML DISP.SYRIN IV PRN (16:48)
[2023-02-10 19:45] VITALS: BP 118/78; TEMP 98; O2SAT 100
[2023-02-11] MEDS: ACETAMINOPHEN 650 MG/20.3 ML UDC GT PRN ×2 (01:07→21:34)
[2023-02-11] MEDS: NEPRO 1,000 ML BOTTLE GT PRN (06:31)
[2023-02-11 06:46] LABS: CALCIUM, SERUM 10.3 mg/dL (8.5-10.1); CREATININE 5.1 mg/dL (0.6-1.3); POTASSIUM 3.4 mmol/L (3.5-5.1)
[2023-02-11 07:30] VITALS: BP 120/75; TEMP 98.7; O2SAT 100
[2023-02-11] MEDS: LEVETIRACETAM SOL (5 ML) 100 MG/ML UDC GT SCH ×2 (09:19→17:03)
[2023-02-11] MEDS: PANTOPRAZOLE 40 MG/PACK PACK GT SCH ×2 (09:19→17:03)
[2023-02-11] MEDS: FERROUS SULFATE UDC 300 MG/5 ML UDC GT SCH ×3 (09:19→17:03)
[2023-02-11] MEDS: OLANZAPINE 2.5 MG TABLET GT SCH (09:19)
[2023-02-11] MEDS: hydrALAZINE HCL 25 MG TABLET GT SCH ×4 (09:22→21:34)
[2023-02-11] MEDS: CARVEDILOL 12.5 MG TABLET GT SCH ×2 (09:22→17:04)
[2023-02-11] MEDS: PROSOURCE / PROSTAT (PYXIS) 30 ML UDC GT SCH ×2 (09:25→17:05)
[2023-02-11] MEDS: THERAHONEY GEL 1.5 OZ TUBE TP SCH (09:25)
[2023-02-11] MEDS: SEVELAMER CARBONATE 800 MG POWD.PACK GT SCH ×3 (09:37→17:03)
[2023-02-11] MEDS: VIT B CMPLX 3/FA/VIT C/BIOTIN 1 TAB TABLET GT SCH (09:37)
[2023-02-11 16:00] VITALS: BP 145/87; TEMP 98.3; O2SAT 98
[2023-02-11 20:00] VITALS: BP 149/93; TEMP 98.2; O2SAT 97
[2023-02-12 06:39] LABS: BASOPHILS % (AUTO) 0.5 % (0.0-2.0); EOSINOPHILS # (AUTO) 0.3 K/uL (0.0-0.7); EOSINOPHILS % (AUTO) 3.2 % (0.0-6.0); HEMATOCRIT 26 % (39-51); HEMOGLOBIN 7.9 g/dL (13.5-17.5); LYMPHOCYTES # (AUTO) 1.3 K/uL (0.8-4.8); LYMPHOCYTES % (AUTO) 14.1 % (20.0-44.0); MEAN CORPUSCULAR HEMOGLOBIN 26 PG (26.0-33.0); MEAN CORPUSCULAR HGB CONC 31 g/dl (31.0-36.0); MEAN CORPUSCULAR VOLUME 85 fL (80-96); MONOCYTES # (AUTO) 0.7 K/uL (0.1-1.30); MONOCYTES % (AUTO) 7.2 % (2.0-12.0); NEUTROPHILS # (AUTO) 6.8 K/uL (1.8-8.9); PLATELET COUNT (AUTO) 172 K/uL (150-450); RED BLOOD CELL COUNT(AUTO) 3.02 MIL/uL (4.5-6.0); RED CELL DISTRIBUTION WIDTH 17.8 % (11.5-15.0); WHITE BLOOD COUNT (AUTO) 9.1 K/uL (4.3-11.0)
[2023-02-12 07:00] VITALS: BP 137/93; TEMP 97.7; O2SAT 96
[2023-02-12 07:07] LABS: CALCIUM, SERUM 10.5 mg/dL (8.5-10.1); CREATININE 6.1 mg/dL (0.6-1.3); MAGNESIUM 2.5 mg/dL (1.8-2.4); PHOSPHORUS 1.6 mg/dL (2.5-4.9); POTASSIUM 3.7 mmol/L (3.5-5.1)
[2023-02-12] MEDS: PROSOURCE / PROSTAT (PYXIS) 30 ML UDC GT SCH ×2 (08:00→17:04)
[2023-02-12] MEDS: LEVETIRACETAM SOL (5 ML) 100 MG/ML UDC GT SCH ×2 (09:00→17:04)
[2023-02-12] MEDS: SEVELAMER CARBONATE 800 MG POWD.PACK GT SCH (09:00)
[2023-02-12] MEDS: OLANZAPINE 2.5 MG TABLET GT SCH (09:00)
[2023-02-12] MEDS: FERROUS SULFATE UDC 300 MG/5 ML UDC GT SCH ×3 (09:00→17:04)
[2023-02-12] MEDS: VIT B CMPLX 3/FA/VIT C/BIOTIN 1 TAB TABLET GT SCH (09:00)
[2023-02-12] MEDS: hydrALAZINE HCL 25 MG TABLET GT SCH ×4 (09:00→21:00)
[2023-02-12] MEDS: PANTOPRAZOLE 40 MG/PACK PACK GT SCH ×2 (09:00→17:04)
[2023-02-12] MEDS: CARVEDILOL 12.5 MG TABLET GT SCH ×2 (09:00→17:04)
[2023-02-12] MEDS: THERAHONEY GEL 1.5 OZ TUBE TP SCH (09:12)
[2023-02-12] MEDS ORDERED: ANESTHESIA TRAY IN PYXIS 1 EA TRAY MC ONE (09:49)
[2023-02-12] MEDS ORDERED: IOHEXOL 50 ML IV ONE (09:49)
[2023-02-12] MEDS ORDERED: HEPARIN SODIUM, PORCINE 1,000 UNIT/ML VIAL ONE (09:50)
[2023-02-12] MEDS ORDERED: LIDOCAINE HCL/MPF 1% 30 ML VIAL IJ ONE (09:50)
[2023-02-12] MEDS ORDERED: FENTANYL PF 100MCG/2ML AMPUL ONE (11:56)
[2023-02-12] MEDS ORDERED: MIDAZOLAM HCL 2 MG/2ML VIAL ONE (11:56)
[2023-02-12] MEDS: NEPRO 1,000 ML BOTTLE GT PRN (14:09)
[2023-02-12] MEDS: EPOETIN ALFA (10,000 UNIT) 10,000 UNIT/ML VIAL SQ SCH (15:57)
[2023-02-12 16:00] VITALS: BP 143/99; TEMP 97.6; O2SAT 98
[2023-02-12 20:00] VITALS: BP 128/91; TEMP 98; O2SAT 100
[2023-02-13] MEDS: VANCOMYCIN 500 MG in IV D5W 100 ML IV PRN (01:01)
[2023-02-13 07:26] LABS: BASOPHILS % (AUTO) 0.4 % (0.0-2.0); EOSINOPHILS # (AUTO) 0.2 K/uL (0.0-0.7); EOSINOPHILS % (AUTO) 2.9 % (0.0-6.0); HEMATOCRIT 26 % (39-51); HEMOGLOBIN 8.1 g/dL (13.5-17.5); LYMPHOCYTES % (AUTO) 14.2 % (20.0-44.0); MEAN CORPUSCULAR HEMOGLOBIN 26 PG (26.0-33.0); MEAN CORPUSCULAR HGB CONC 31 g/dl (31.0-36.0); MEAN CORPUSCULAR VOLUME 85 fL (80-96); MONOCYTES # (AUTO) 0.6 K/uL (0.1-1.30); MONOCYTES % (AUTO) 8.3 % (2.0-12.0); NEUTROPHILS # (AUTO) 5.2 K/uL (1.8-8.9); NEUTROPHILS % (AUTO) 74.2 % (43.0-81.0); PLATELET COUNT (AUTO) 165 K/uL (150-450); RED BLOOD CELL COUNT(AUTO) 3.08 MIL/uL (4.5-6.0); RED CELL DISTRIBUTION WIDTH 17.8 % (11.5-15.0)
[2023-02-13 07:46] LABS: CALCIUM, SERUM 10.2 mg/dL (8.5-10.1); CREATININE 3.8 mg/dL (0.6-1.3); MAGNESIUM 2.4 mg/dL (1.8-2.4); PHOSPHORUS 2.2 mg/dL (2.5-4.9); POTASSIUM 3.6 mmol/L (3.5-5.1)
[2023-02-13 08:00] VITALS: BP 151/90; TEMP 98.2; O2SAT 99
[2023-02-13] MEDS: PROSOURCE / PROSTAT (PYXIS) 30 ML UDC GT SCH ×2 (08:36→16:29)
[2023-02-13] MEDS ORDERED: NEUTRA PHOS 1 POWD.PACKET PO ONE (09:00)
[2023-02-13] MEDS: hydrALAZINE HCL 25 MG TABLET GT SCH ×4 (09:00→21:56)
[2023-02-13] MEDS: VIT B CMPLX 3/FA/VIT C/BIOTIN 1 TAB TABLET GT SCH (09:00)
[2023-02-13] MEDS: CARVEDILOL 12.5 MG TABLET GT SCH ×2 (09:00→16:26)
[2023-02-13] MEDS: OLANZAPINE 2.5 MG TABLET GT SCH (09:00)
[2023-02-13] MEDS: PANTOPRAZOLE 40 MG/PACK PACK GT SCH ×2 (09:00→16:28)
[2023-02-13] MEDS: FERROUS SULFATE UDC 300 MG/5 ML UDC GT SCH ×3 (09:01→16:28)
[2023-02-13] MEDS: LEVETIRACETAM SOL (5 ML) 100 MG/ML UDC GT SCH ×2 (09:01→16:28)
[2023-02-13] MEDS: THERAHONEY GEL 1.5 OZ TUBE TP SCH (09:03)
[2023-02-13 16:14] VITALS: BP 114/75; TEMP 98.2; O2SAT 99
[2023-02-14] MEDS: NEPRO 1,000 ML BOTTLE GT PRN (04:05)
[2023-02-14 06:54] LABS: BASOPHILS % (AUTO) 0.4 % (0.0-2.0); EOSINOPHILS # (AUTO) 0.2 K/uL (0.0-0.7); EOSINOPHILS % (AUTO) 2.6 % (0.0-6.0); HEMATOCRIT 28 % (39-51); HEMOGLOBIN 8.7 g/dL (13.5-17.5); LYMPHOCYTES # (AUTO) 1.2 K/uL (0.8-4.8); LYMPHOCYTES % (AUTO) 14.3 % (20.0-44.0); MEAN CORPUSCULAR HEMOGLOBIN 27 PG (26.0-33.0); MEAN CORPUSCULAR HGB CONC 31 g/dl (31.0-36.0); MEAN CORPUSCULAR VOLUME 86 fL (80-96); MONOCYTES # (AUTO) 0.6 K/uL (0.1-1.30); MONOCYTES % (AUTO) 7.8 % (2.0-12.0); NEUTROPHILS # (AUTO) 6.1 K/uL (1.8-8.9); NEUTROPHILS % (AUTO) 74.9 % (43.0-81.0); PLATELET COUNT (AUTO) 184 K/uL (150-450); RED BLOOD CELL COUNT(AUTO) 3.28 MIL/uL (4.5-6.0); RED CELL DISTRIBUTION WIDTH 17.9 % (11.5-15.0); WHITE BLOOD COUNT (AUTO) 8.1 K/uL (4.3-11.0)
[2023-02-14 07:21] LABS: CALCIUM, SERUM 9.9 mg/dL (8.5-10.1); CREATININE 3.6 mg/dL (0.6-1.3); MAGNESIUM 2.2 mg/dL (1.8-2.4); PHOSPHORUS 2.2 mg/dL (2.5-4.9); POTASSIUM 3.4 mmol/L (3.5-5.1)
[2023-02-14 07:30] VITALS: BP 135/135; TEMP 97.9; O2SAT 100
[2023-02-14] MEDS: FERROUS SULFATE UDC 300 MG/5 ML UDC GT SCH ×3 (09:56→17:50)
[2023-02-14] MEDS: PROSOURCE / PROSTAT (PYXIS) 30 ML UDC GT SCH ×2 (09:56→17:52)
[2023-02-14] MEDS: VIT B CMPLX 3/FA/VIT C/BIOTIN 1 TAB TABLET GT SCH (09:57)
[2023-02-14] MEDS: CARVEDILOL 12.5 MG TABLET GT SCH ×2 (09:59→17:00)
[2023-02-14] MEDS: LEVETIRACETAM SOL (5 ML) 100 MG/ML UDC GT SCH ×2 (09:59→17:50)
[2023-02-14] MEDS: OLANZAPINE 2.5 MG TABLET GT SCH (09:59)
[2023-02-14] MEDS: hydrALAZINE HCL 25 MG TABLET GT SCH ×5 (09:59→21:20)
[2023-02-14] MEDS: THERAHONEY GEL 1.5 OZ TUBE TP SCH (10:00)
[2023-02-14] MEDS: PANTOPRAZOLE 40 MG/PACK PACK GT SCH ×2 (10:00→17:50)
[2023-02-14 16:21] VITALS: BP 116/78; TEMP 97.7; O2SAT 100
[2023-02-14 20:47] VITALS: BP 146/94; TEMP 98.4; O2SAT 96
[2023-02-15] MEDS: NEPRO 1,000 ML BOTTLE GT PRN (05:46)
[2023-02-15 07:30] VITALS: BP 131/88; TEMP 99.1; O2SAT 100
[2023-02-15 07:45] LABS: CALCIUM, SERUM 10.3 mg/dL (8.5-10.1); CREATININE 4.7 mg/dL (0.6-1.3); POTASSIUM 3.5 mmol/L (3.5-5.1)
[2023-02-15] MEDS: hydrALAZINE HCL 25 MG TABLET GT SCH (08:22)
[2023-02-15] MEDS: PROSOURCE / PROSTAT (PYXIS) 30 ML UDC GT SCH (08:22)
[2023-02-15 08:23] VITALS: BP 131/88
[2023-02-15] MEDS: OLANZAPINE 2.5 MG TABLET GT SCH (08:23)
[2023-02-15] MEDS: FERROUS SULFATE UDC 300 MG/5 ML UDC GT SCH (08:23)
[2023-02-15] MEDS: VIT B CMPLX 3/FA/VIT C/BIOTIN 1 TAB TABLET GT SCH (08:23)
[2023-02-15] MEDS: PANTOPRAZOLE 40 MG/PACK PACK GT SCH (08:23)
[2023-02-15] MEDS: LEVETIRACETAM SOL (5 ML) 100 MG/ML UDC GT SCH (08:23)
[2023-02-15] MEDS: CARVEDILOL 12.5 MG TABLET GT SCH (08:23)
[2023-02-15] MEDS: THERAHONEY GEL 1.5 OZ TUBE TP SCH (08:24)
== END 2023-02-15 12:00 | DRG 264 ==
LOC: ER 10:10 → TELE 14:50 → MED 01-31 08:16
PROVIDERS: ADMIT Internal Medicine; ATTEND Nurse Practitioner Acute Care
PROC: 30233N1 Transfusion of Nonautologous Red Blood Cells into Peripheral Vein, Percutaneous Approach (ICD-10-PCS; 2023-01-19)
PROC: 5A1D70Z Performance of Urinary Filtration, Intermittent, Less than 6 Hours Per Day (ICD-10-PCS; 2023-01-20)
PROC: 0JB70ZZ Excision of Back Subcutaneous Tissue and Fascia, Open Approach (ICD-10-PCS; principal; 2023-01-26)
PROC: 06PY33Z Removal of Infusion Device from Lower Vein, Percutaneous Approach (ICD-10-PCS; 2023-02-01)
PROC: 06H033Z Insertion of Infusion Device into Inferior Vena Cava, Percutaneous Approach (ICD-10-PCS; 2023-02-01)
PROC: B519YZA Fluoroscopy of Inferior Vena Cava using Other Contrast, Guidance (ICD-10-PCS; 2023-02-01)
PROC: 0JB70ZZ Excision of Back Subcutaneous Tissue and Fascia, Open Approach (ICD-10-PCS; 2023-02-03)
PROC: 0JB70ZZ Excision of Back Subcutaneous Tissue and Fascia, Open Approach (ICD-10-PCS; 2023-02-09)
PROC: 06H033Z Insertion of Infusion Device into Inferior Vena Cava, Percutaneous Approach (ICD-10-PCS; 2023-02-14)
PROC: B549ZZA Ultrasonography of Inferior Vena Cava, Guidance (ICD-10-PCS; 2023-02-14)
DX: T80.219A Unspecified infection due to central venous catheter, initial encounter (principal); L89.153 Pressure ulcer of sacral region, stage 3; N18.6 End stage renal disease; I13.2 Hypertensive heart and chronic kidney disease with heart failure and with stage 5 chronic kidney disease, or end stage renal disease; J96.10 Chronic respiratory failure, unspecified whether with hypoxia or hypercapnia; G93.1 Anoxic brain damage, not elsewhere classified; E87.1 Hypo-osmolality and hyponatremia; E44.0 Moderate protein-calorie malnutrition; I42.9 Cardiomyopathy, unspecified; R78.81 Bacteremia; G93.49 Other encephalopathy; D62 Acute posthemorrhagic anemia; T82.330A Leakage of aortic (bifurcation) graft (replacement), initial encounter; D63.1 Anemia in chronic kidney disease; I50.9 Heart failure, unspecified; Y84.8 Other medical procedures as the cause of abnormal reaction of the patient, or of later complication, without mention of misadventure at the time of the procedure; Y92.129 Unspecified place in nursing home as the place of occurrence of the external cause; Z20.822 Contact with and (suspected) exposure to COVID-19; G40.909 Epilepsy, unspecified, not intractable, without status epilepticus; F20.9 Schizophrenia, unspecified; M89.8X9 Other specified disorders of bone, unspecified site; Z93.1 Gastrostomy status; Z93.0 Tracheostomy status; Z99.2 Dependence on renal dialysis; Z79.01 Long term (current) use of anticoagulants; Z79.899 Other long term (current) drug therapy; E11.22 Type 2 diabetes mellitus with diabetic chronic kidney disease; B95.62 Methicillin resistant Staphylococcus aureus infection as the cause of diseases classified elsewhere; I25.10 Atherosclerotic heart disease of native coronary artery without angina pectoris; R13.10 Dysphagia, unspecified; E88.09 Other disorders of plasma-protein metabolism, not elsewhere classified; E87.6 Hypokalemia; E83.39 Other disorders of phosphorus metabolism; Y83.8 Other surgical procedures as the cause of abnormal reaction of the patient, or of later complication, without mention of misadventure at the time of the procedure
CPT/HCPCS: 36415; 71045-TC; 71260-TC; 74018; 80048-TC; 80053-TC; 80076-TC; 80202-TC; 82962-TC; 83735-TC; 84100-TC; 85025-TC; 85027-TC; 85730-TC; 86706; 86850-TC; 87040-TC; 87081-TC; 87340; 90935-TC; 93307-TC; A4223; C9113; G0378; J0692; J0885; J1644; J1953; J2250; J2270; J3010; J3370; J3490; J7030; J7040; J7042; J7050; J7060; P9016; P9045; Q9967

== ENCOUNTER 2023-02-25 11:12 | Inpatient (IN) | payer MEDICARE, OTHER ==
[~2023-02-25] VITALS: Ht 167.6 cm; Wt 54.9 kg
[~2023-02-25 11:12] MED LIST changes: +ACET325T53 PO; +AMIN30LI2 GT; -AMLO-212 PO; -AMLO5TAB4 GT; -ASCO-352 GT; +ASCO500C17 GT; -BLOO-668 IN; +CARV6.25 GT; -CLON0.2T GT; -CYAN-51 GT; -DAPT500V2 IV; -FAMO20TA8 PO; -FERR220S2 GT; +FERR300L GT; +FOLI0.8T2 GT; -FOLI0.8T3 GT; +HONE15GE TP; +HYDR-3973 GT; -INSU100V42 SQ; +IRON100V6 IV; +LEVE500T9 GT; +LOSA25TA27 GT; -LOSA25TA3 GT; -MELA3TAB41 GT; +MIDO5TAB4 GT; -MINO10TA2 GT; +MINO2.5T GT; -NORM210S TP; +NUT.237L67 GT; +PANT40SU2 GT; -PANT40TA49 GT; +POLY17PO4 GT; +SENN8.6T19 GT; -SUCR1ORA15 GT; -THIA100T88 GT; +VANC500V IV
[2023-02-25] MEDS ORDERED: NITR0.4T48 SL (12:01)
[2023-02-25] MEDS ORDERED: ASCO-352 GT (12:01)
[2023-02-25] MEDS ORDERED: VANCOMYCIN 1 GM /D5W 250 ML PB IV ONE (12:05)
[2023-02-25] MEDS: IV NS 0.9% 500 ML BAG IV ONE (12:16)
[2023-02-25] MEDS: CEFEPIME 1 GM in IV D5W 50 ML IV ONE (12:17)
[2023-02-25 12:40] LABS: BASOPHILS % (AUTO) 0.1 % (0.0-2.0); EOSINOPHILS # (AUTO) 0.1 K/uL (0.0-0.7); EOSINOPHILS % (AUTO) 0.5 % (0.0-6.0); HEMATOCRIT 23 % (39-51); HEMOGLOBIN 7.3 g/dL (13.5-17.5); LYMPHOCYTES # (AUTO) 1.1 K/uL (0.8-4.8); MEAN CORPUSCULAR HEMOGLOBIN 27 PG (26.0-33.0); MEAN CORPUSCULAR HGB CONC 31 g/dl (31.0-36.0); MEAN CORPUSCULAR VOLUME 85 fL (80-96); MONOCYTES # (AUTO) 0.6 K/uL (0.1-1.30); MONOCYTES % (AUTO) 5.7 % (2.0-12.0); NEUTROPHILS # (AUTO) 8.2 K/uL (1.8-8.9); NEUTROPHILS % (AUTO) 82.7 % (43.0-81.0); PLATELET COUNT (AUTO) 177 K/uL (150-450); RED BLOOD CELL COUNT(AUTO) 2.73 MIL/uL (4.5-6.0); RED CELL DISTRIBUTION WIDTH 18.7 % (11.5-15.0); WHITE BLOOD COUNT (AUTO) 9.9 K/uL (4.3-11.0)
[2023-02-25 12:52] LABS: CALCIUM, SERUM 9.1 mg/dL (8.5-10.1); CARBON DIOXIDE 32 mmol/L (21-32); CHLORIDE 89 mmol/L (98-107); CREATININE 2.1 mg/dL (0.6-1.3); GLUCOSE 87 mg/dL (74-106); SODIUM SERUM 126 mmol/L (136-145); UREA NITROGEN, BLOOD 21 mg/dL (7-18)
[2023-02-25 12:54] LABS: INR 1.24 (0.91-1.10); PARTIAL THROMBOPLASTIN TIME 32.5 SEC (24.3-34.3)
[2023-02-25 12:58] LABS: LACTIC ACID 0.4 mmol/L (0.4-2.0)
[2023-02-25] MEDS: VANCOMYCIN 1 GM in IV D5W 250 ML IV ONE (13:00)
[2023-02-25 13:05] LABS: ALANINE AMINOTRANSFERASE 10 U/L (12-78); ALBUMIN 1.9 g/dL (3.4-5.0); ALKALINE PHOSPHATASE 133 U/L (46-116); ASPARTATE AMINOTRANSFERASE 30 U/L (15-37); BILIRUBIN,DIRECT 0.1 mg/dL (0.0-0.2); BILIRUBIN,TOTAL 0.3 mg/dL (0.2-1.0); TOTAL PROTEIN, SERUM 9.1 g/dL (6.4-8.2)
[2023-02-25] MEDS ORDERED: BISACODYL SUPP (10 MG) 10 MG/SUPP.RECT SUPP.RECT RC PRN (15:00)
[2023-02-25] MEDS ORDERED: MAGNESIUM HYDROXIDE 30 ML UDC GT PRN ×2 (15:00→16:25)
[2023-02-25] MEDS ORDERED: HYDROCODONE/APAP 5/325MG TABLET GT PRN (15:00)
[2023-02-25] MEDS ORDERED: NA PHOS,M-B/NA PHOS,DI-BA 1 EA ENEMA RC PRN (15:00)
[2023-02-25] MEDS ORDERED: NITROGLYCERIN 0.4 MG/TAB BOTTLE SL PRN (15:00)
[2023-02-25] MEDS ORDERED: ACETAMINOPHEN 325 MG TABLET PO PRN ×2 (15:00→15:30)
[2023-02-25] MEDS ORDERED: MAGNESIUM HYDROXIDE 30 ML UDC PO PRN (15:30)
[2023-02-25] MEDS ORDERED: Z GUARD REMEDY 4 OZ OINT TP PRN (15:30)
[2023-02-25] MEDS ORDERED: ONDANSETRON HCL/PF 4 MG/2 ML VIAL IVP PRN (15:30)
[2023-02-25] MEDS ORDERED: MAG HYDROX/AL HYDROX/SIMETH 30 ML UDC PO PRN (15:30)
[2023-02-25] MEDS ORDERED: NEPRO 1,000 ML BOTTLE GT PRN (16:30)
[2023-02-25] MEDS: FERROUS SULFATE UDC 300 MG/5 ML UDC GT SCH (17:00)
[2023-02-25] MEDS: hydrALAZINE HCL 25 MG TABLET GT SCH (17:00)
[2023-02-25] MEDS: MIDODRINE HCL (5MG) 5 MG TABLET GT SCH (17:00)
[2023-02-25] MEDS: CARVEDILOL 12.5 MG TABLET GT SCH (17:00)
[2023-02-25] MEDS: LEVETIRACETAM SOL (5 ML) 100 MG/ML UDC GT SCH (17:00)
[2023-02-25] MEDS ORDERED: hydrALAZINE HCL 50 MG TABLET ONE (21:59)
[2023-02-25] MEDS ORDERED: LEVETIRACETAM SOL (5 ML) 100 MG/ML UDC ONE (22:00)
[2023-02-25] MEDS: SENNOSIDES 8.6 MG TABLET GT SCH (22:00)
[2023-02-25] MEDS ORDERED: SENNOSIDES 8.6 MG TABLET ONE (22:00)
[2023-02-25] MEDS ORDERED: CARVEDILOL 12.5 MG TABLET ONE (22:01)
[2023-02-25] MEDS ORDERED: DIATR MEGLU/DIATRIZOATE SODIUM 30 ML BOTTLE (GASTROGRAPHIN) ONE (22:39)
[2023-02-25] MEDS: IV NS 0.9% 1,000 ML IV PRN (23:05)
[2023-02-26] MEDS ORDERED: MAG HYDROX/AL HYDROX/SIMETH 30 ML UDC GT PRN (07:12)
[2023-02-26 08:19] LABS: BASOPHILS % (AUTO) 0.3 % (0.0-2.0); EOSINOPHILS % (AUTO) 0.1 % (0.0-6.0); HEMATOCRIT 25 % (39-51); HEMOGLOBIN 7.4 g/dL (13.5-17.5); LYMPHOCYTES # (AUTO) 1.6 K/uL (0.8-4.8); LYMPHOCYTES % (AUTO) 14.3 % (20.0-44.0); MEAN CORPUSCULAR HEMOGLOBIN 26 PG (26.0-33.0); MEAN CORPUSCULAR HGB CONC 30 g/dl (31.0-36.0); MEAN CORPUSCULAR VOLUME 86 fL (80-96); MONOCYTES # (AUTO) 0.5 K/uL (0.1-1.30); MONOCYTES % (AUTO) 4.4 % (2.0-12.0); NEUTROPHILS # (AUTO) 9.2 K/uL (1.8-8.9); NEUTROPHILS % (AUTO) 80.9 % (43.0-81.0); PLATELET COUNT (AUTO) 186 K/uL (150-450); RED BLOOD CELL COUNT(AUTO) 2.85 MIL/uL (4.5-6.0); RED CELL DISTRIBUTION WIDTH 18.3 % (11.5-15.0); WHITE BLOOD COUNT (AUTO) 11.3 K/uL (4.3-11.0)
[2023-02-26 08:23] LABS: CALCIUM, SERUM 9.6 mg/dL (8.5-10.1); CREATININE 3.1 mg/dL (0.6-1.3); POTASSIUM 3.4 mmol/L (3.5-5.1)
[2023-02-26] MEDS ORDERED: FERROUS SULFATE UDC 300 MG/5 ML UDC ONE (11:12)
[2023-02-26] MEDS ORDERED: LEVETIRACETAM SOL (5 ML) 100 MG/ML UDC ONE (11:12)
[2023-02-26] MEDS ORDERED: CARVEDILOL 12.5 MG TABLET ONE (11:12)
[2023-02-26] MEDS ORDERED: hydrALAZINE HCL 50 MG TABLET ONE (11:12)
[2023-02-26] MEDS ORDERED: OLANZAPINE 5 MG TABLET ONE (11:13)
[2023-02-26] MEDS ORDERED: MIDODRINE HCL (5MG) 5 MG TABLET ONE (11:13)
[2023-02-26] MEDS ORDERED: ZINC SULFATE 220 MG CAPSULE ONE (11:13)
[2023-02-26] MEDS ORDERED: ASCORBIC ACID 500 MG TABLET ONE (11:13)
[2023-02-26] MEDS ORDERED: PANTOPRAZOLE 40 MG/PACK PACK ONE (11:14)
[2023-02-26] MEDS: OLANZAPINE 2.5 MG TABLET GT SCH (11:15)
[2023-02-26] MEDS: ZINC SULFATE 220 MG CAPSULE GT SCH (11:15)
[2023-02-26] MEDS: ASCORBIC ACID 500 MG TABLET GT SCH (11:15)
[2023-02-26] MEDS: PANTOPRAZOLE 40 MG/PACK PACK GT SCH (11:15)
[2023-02-26] MEDS: SEVELAMER CARBONATE 800 MG POWD.PACK GT SCH (12:00)
[2023-02-26] MEDS: POLYETHYLENE GLYCOL 3350 17 GM POWD.PACK GT SCH (12:00)
[2023-02-26] MEDS ORDERED: hydrALAZINE HCL IV 20 MG VIAL IV PRN (13:00)
[2023-02-26] MEDS: IV D5/ 0.9% NACL 1,000 ML IV PRN (13:23)
[2023-02-26] MEDS: CEFEPIME 1 GM in IV D5W 50 ML IV SCH (13:40)
[2023-02-26] MEDS: LEVETIRACETAM (500MG) 500 MG in IV NS 0.9% 100 ML IV SCH (14:13)
[2023-02-26 16:00] VITALS: BP 123/79; TEMP 98.7; O2SAT 99
[2023-02-26] MEDS: APIXABAN 2.5 MG TABLET GT SCH (16:09)
[2023-02-26 20:00] VITALS: BP 122/78; TEMP 97.8; O2SAT 97
[2023-02-27] VITALS: BP 124/79; TEMP 98; O2SAT 98
[2023-02-27 04:00] VITALS: BP 120/71; TEMP 98; O2SAT 98
[2023-02-27 07:20] LABS: BASOPHILS % (AUTO) 0.4 % (0.0-2.0); EOSINOPHILS % (AUTO) 0.7 % (0.0-6.0); HEMATOCRIT 26 % (39-51); HEMOGLOBIN 7.6 g/dL (13.5-17.5); LYMPHOCYTES # (AUTO) 0.8 K/uL (0.8-4.8); LYMPHOCYTES % (AUTO) 12.7 % (20.0-44.0); MEAN CORPUSCULAR HEMOGLOBIN 26 PG (26.0-33.0); MEAN CORPUSCULAR HGB CONC 30 g/dl (31.0-36.0); MEAN CORPUSCULAR VOLUME 86 fL (80-96); MONOCYTES # (AUTO) 0.6 K/uL (0.1-1.30); MONOCYTES % (AUTO) 8.8 % (2.0-12.0); NEUTROPHILS % (AUTO) 77.4 % (43.0-81.0); PLATELET COUNT (AUTO) 194 K/uL (150-450); RED BLOOD CELL COUNT(AUTO) 2.96 MIL/uL (4.5-6.0); RED CELL DISTRIBUTION WIDTH 18.4 % (11.5-15.0); WHITE BLOOD COUNT (AUTO) 6.4 K/uL (4.3-11.0)
[2023-02-27 07:43] LABS: CALCIUM, SERUM 9.7 mg/dL (8.5-10.1); CREATININE 2.6 mg/dL (0.6-1.3); POTASSIUM 3.6 mmol/L (3.5-5.1)
[2023-02-27 08:00] VITALS: BP 116/75; TEMP 98.2; O2SAT 99
[2023-02-27 12:00] VITALS: BP 110/75; TEMP 98.5; O2SAT 99
[2023-02-27 16:00] VITALS: BP 109/70; TEMP 97.9; O2SAT 100
[2023-02-27 20:00] VITALS: BP 122/80; TEMP 98.1; O2SAT 100; O2SAT 97
[2023-02-28] VITALS: BP 122/80; TEMP 98.1; O2SAT 100
[2023-02-28 04:00] VITALS: BP 118/74; TEMP 97.6; O2SAT 100
[2023-02-28 07:58] LABS: BASOPHILS # (AUTO) 0.1 K/uL (0.0-0.2); BASOPHILS % (AUTO) 0.6 % (0.0-2.0); EOSINOPHILS # (AUTO) 0.1 K/uL (0.0-0.7); EOSINOPHILS % (AUTO) 0.6 % (0.0-6.0); HEMATOCRIT 26 % (39-51); HEMOGLOBIN 7.7 g/dL (13.5-17.5); LYMPHOCYTES # (AUTO) 1.2 K/uL (0.8-4.8); LYMPHOCYTES % (AUTO) 11.5 % (20.0-44.0); MEAN CORPUSCULAR HEMOGLOBIN 26 PG (26.0-33.0); MEAN CORPUSCULAR HGB CONC 30 g/dl (31.0-36.0); MEAN CORPUSCULAR VOLUME 89 fL (80-96); MONOCYTES # (AUTO) 0.6 K/uL (0.1-1.30); NEUTROPHILS # (AUTO) 8.2 K/uL (1.8-8.9); NEUTROPHILS % (AUTO) 81.3 % (43.0-81.0); PLATELET COUNT (AUTO) 159 K/uL (150-450); RED BLOOD CELL COUNT(AUTO) 2.93 MIL/uL (4.5-6.0); RED CELL DISTRIBUTION WIDTH 18.8 % (11.5-15.0); WHITE BLOOD COUNT (AUTO) 10.1 K/uL (4.3-11.0)
[2023-02-28 08:00] VITALS: BP 115/66; TEMP 98; O2SAT 100
[2023-02-28 09:00] LABS: CALCIUM, SERUM 9.6 mg/dL (8.5-10.1); CREATININE 3.7 mg/dL (0.6-1.3)
[2023-02-28] MEDS ORDERED: ANESTHESIA TRAY IN PYXIS 1 EA TRAY MC ONE (11:01)
[2023-02-28 12:00] VITALS: BP 120/79; TEMP 97.7; O2SAT 100
[2023-02-28 16:00] VITALS: BP 115/70; TEMP 97.5; O2SAT 100
[2023-02-28 20:00] VITALS: BP 121/73; TEMP 98.8; O2SAT 100
[2023-03-01 00:03] VITALS: BP 123/73; TEMP 98.8; O2SAT 100
[2023-03-01 04:00] VITALS: BP_SYST 115; BP_SYST 123; BP_DIAS 73; TEMP 98.4; TEMP 98.8; O2SAT 100
[2023-03-01 07:37] LABS: BASOPHILS % (AUTO) 0.3 % (0.0-2.0); EOSINOPHILS % (AUTO) 0.3 % (0.0-6.0); HEMATOCRIT 25 % (39-51); HEMOGLOBIN 7.5 g/dL (13.5-17.5); LYMPHOCYTES % (AUTO) 11.6 % (20.0-44.0); MEAN CORPUSCULAR HEMOGLOBIN 26 PG (26.0-33.0); MEAN CORPUSCULAR HGB CONC 30 g/dl (31.0-36.0); MEAN CORPUSCULAR VOLUME 87 fL (80-96); MONOCYTES # (AUTO) 0.5 K/uL (0.1-1.30); MONOCYTES % (AUTO) 5.4 % (2.0-12.0); NEUTROPHILS # (AUTO) 6.9 K/uL (1.8-8.9); NEUTROPHILS % (AUTO) 82.4 % (43.0-81.0); PLATELET COUNT (AUTO) 180 K/uL (150-450); RED BLOOD CELL COUNT(AUTO) 2.87 MIL/uL (4.5-6.0); RED CELL DISTRIBUTION WIDTH 18.8 % (11.5-15.0); WHITE BLOOD COUNT (AUTO) 8.3 K/uL (4.3-11.0)
[2023-03-01 08:00] VITALS: BP 115/72; TEMP 98.6; O2SAT 100
[2023-03-01 08:04] LABS: CALCIUM, SERUM 9.6 mg/dL (8.5-10.1); CREATININE 3.1 mg/dL (0.6-1.3); POTASSIUM 3.8 mmol/L (3.5-5.1)
[2023-03-01] MEDS: NEPRO 1,000 ML BOTTLE GT PRN (12:33)
[2023-03-01] MEDS: LEVETIRACETAM SOL (5 ML) 100 MG/ML UDC PO SCH (13:45)
[2023-03-01 16:00] VITALS: BP 111/77; TEMP 98.4; O2SAT 100
[2023-03-02 04:00] VITALS: BP 117/68; TEMP 97.8; O2SAT 98
[2023-03-02 08:09] LABS: BASOPHILS % (AUTO) 0.3 % (0.0-2.0); EOSINOPHILS # (AUTO) 0.1 K/uL (0.0-0.7); EOSINOPHILS % (AUTO) 0.6 % (0.0-6.0); HEMATOCRIT 25 % (39-51); HEMOGLOBIN 7.6 g/dL (13.5-17.5); LYMPHOCYTES # (AUTO) 1.2 K/uL (0.8-4.8); LYMPHOCYTES % (AUTO) 11.5 % (20.0-44.0); MEAN CORPUSCULAR HEMOGLOBIN 26 PG (26.0-33.0); MEAN CORPUSCULAR HGB CONC 30 g/dl (31.0-36.0); MEAN CORPUSCULAR VOLUME 88 fL (80-96); MONOCYTES # (AUTO) 0.6 K/uL (0.1-1.30); MONOCYTES % (AUTO) 5.5 % (2.0-12.0); NEUTROPHILS # (AUTO) 8.6 K/uL (1.8-8.9); NEUTROPHILS % (AUTO) 82.1 % (43.0-81.0); PLATELET COUNT (AUTO) 203 K/uL (150-450); RED BLOOD CELL COUNT(AUTO) 2.88 MIL/uL (4.5-6.0); WHITE BLOOD COUNT (AUTO) 10.5 K/uL (4.3-11.0)
[2023-03-02 08:19] LABS: CALCIUM, SERUM 9.7 mg/dL (8.5-10.1); CREATININE 4.1 mg/dL (0.6-1.3); POTASSIUM 3.8 mmol/L (3.5-5.1)
[2023-03-02 08:45] VITALS: BP 120/79; TEMP 97.7; O2SAT 100
[2023-03-02 13:20] LABS: ANISOCYTOSIS 1+; EOSINOPHILS % (MANUAL) 2 % (0-4); LYMPHOCYTES % (MANUAL) 7 % (16-48); MONOCYTES % (MANUAL) 3 % (0-11.0); NEUTROPHILS % (MANUAL) 88 (42-76); PLATELET ESTIMATE ADEQUATE
[2023-03-02 16:42] VITALS: BP 96/69; TEMP 98; O2SAT 100
[2023-03-02] MEDS: HYDROGEL DRESSING 90 GM TUBE TP SCH (18:38)
[2023-03-02 20:00] VITALS: BP 131/87; TEMP 98; O2SAT 99
[2023-03-03] VITALS (9 sets, daily range): BP systolic 115–137; BP diastolic 71–89; TEMP 97.7–98.9; O2SAT 94–100
[2023-03-03 07:52] LABS: CALCIUM, SERUM 9.4 mg/dL (8.5-10.1); CREATININE 3.6 mg/dL (0.6-1.3); POTASSIUM 3.3 mmol/L (3.5-5.1)
[2023-03-03] MEDS: LEVETIRACETAM SOL (5 ML) 100 MG/ML UDC GT SCH (13:18)
[2023-03-03] MEDS: ACETYLCYSTEINE 10% SOLN 400 MG/4 ML VIAL NEB SCH (14:08)
[2023-03-03] MEDS: IPRATROPIUM NEB FS 0.5 MG/2.5 ML AMPUL.NEB NEB SCH (14:08)
[2023-03-03] MEDS: ACETAMINOPHEN 650 MG/20.3 ML UDC GT PRN (16:22)
[2023-03-03] MEDS: ARGININE/GLUTAMINE/CALCIUM BMB 1 EACH POWD.PACK GT SCH (16:29)
[2023-03-03] MEDS: PROSOURCE / PROSTAT (PYXIS) 30 ML UDC GT SCH (16:30)
[2023-03-03] MEDS: POTASSIUM CHLORIDE 20 MEQ POWDER PACKET GT ONE (18:38)
[2023-03-04] VITALS (30 sets, daily range): BP systolic 111–152; BP diastolic 69–111; TEMP 97.7–99.1; O2SAT 93–100
[2023-03-04] MEDS: ACETAMINOPHEN ES 500 MG TABLET GT PRN (01:09)
[2023-03-04 07:42] LABS: BASOPHILS % (AUTO) 0.2 % (0.0-2.0); EOSINOPHILS % (AUTO) 0.1 % (0.0-6.0); HEMATOCRIT 21 % (39-51); LYMPHOCYTES # (AUTO) 1.3 K/uL (0.8-4.8); LYMPHOCYTES % (AUTO) 10.1 % (20.0-44.0); MEAN CORPUSCULAR HEMOGLOBIN 26 PG (26.0-33.0); MEAN CORPUSCULAR HGB CONC 30 g/dl (31.0-36.0); MEAN CORPUSCULAR VOLUME 87 fL (80-96); MONOCYTES # (AUTO) 0.6 K/uL (0.1-1.30); NEUTROPHILS # (AUTO) 10.8 K/uL (1.8-8.9); NEUTROPHILS % (AUTO) 84.6 % (43.0-81.0); PLATELET COUNT (AUTO) 172 K/uL (150-450); RED BLOOD CELL COUNT(AUTO) 2.47 MIL/uL (4.5-6.0); RED CELL DISTRIBUTION WIDTH 18.9 % (11.5-15.0); WHITE BLOOD COUNT (AUTO) 12.8 K/uL (4.3-11.0)
[2023-03-04 07:50] LABS: HEMOGLOBIN 6.4 g/dL (13.5-17.5)
[2023-03-04 08:14] LABS: ABG BASE EXCESS 5.2 mmol/L; ABG OXYGEN SATURATION 99.7 % (92.0-98.5); ABG PCO2 71.7 mmHg (35.0-45.0); ABG PH 7.279 (7.350-7.450); ABG PO2 232.9 mmHg (75.0-100.0); ABG TOTAL HEMOGLOBIN 7.5 G/dL (13.5-18.0); AaDO2 408.4 mmHg; COHb 1.9 % (0.5-1.5); MetHb 0.2 % (0.0-1.5); O2Hb 97.6 % (94.0-97.0); SITE, ABG Right Radial; VENT MODE, BG Bipap 20/5 100% RR18
[2023-03-04 08:14] LABS: ABG BASE EXCESS 0.1 mmol/L; ABG OXYGEN SATURATION 89.7 % (92.0-98.5); ABG PCO2 64.9 mmHg (35.0-45.0); ABG PO2 64.3 mmHg (75.0-100.0); ABG TOTAL HEMOGLOBIN 8.1 G/dL (13.5-18.0); AaDO2 583.8 mmHg; COHb 2.7 % (0.5-1.5); MetHb 0.3 % (0.0-1.5); SITE, ABG Right Radial; VENT MODE, BG NRB
[2023-03-04 09:05] LABS: ALANINE AMINOTRANSFERASE < 6 U/L (12-78); ALBUMIN 1.8 g/dL (3.4-5.0); ALKALINE PHOSPHATASE 118 U/L (46-116); ASPARTATE AMINOTRANSFERASE 18 U/L (15-37); BILIRUBIN,TOTAL 0.3 mg/dL (0.2-1.0); CALCIUM, SERUM 9.6 mg/dL (8.5-10.1); CARBON DIOXIDE 26 mmol/L (21-32); CHLORIDE 98 mmol/L (98-107); CREATININE 4.5 mg/dL (0.6-1.3); GLUCOSE 83 mg/dL (74-106); POTASSIUM 3.5 mmol/L (3.5-5.1); SODIUM SERUM 134 mmol/L (136-145); TOTAL PROTEIN, SERUM 8.7 g/dL (6.4-8.2); UREA NITROGEN, BLOOD 42 mg/dL (7-18)
[2023-03-04 10:35] LABS: BASOPHILS % (MANUAL) 0 % (0.0-2.0); EOSINOPHILS % (MANUAL) 0 % (0-4); LYMPHOCYTES % (MANUAL) 11 % (16-48); MONOCYTES % (MANUAL) 4 % (0-11.0); NEUTROPHILS % (MANUAL) 85 (42-76); PLATELET ESTIMATE ADEQUATE
[2023-03-04 10:36] LABS: ANISOCYTOSIS 1+; HYPOCHROMASIA 1+; STOMATOCYTES 1+
[2023-03-04] MEDS: METOCLOPRAMIDE HCL 10 MG/2 ML VIAL IV SCH (15:12)
[2023-03-04] MEDS: VANCOMYCIN 500 MG in IV D5W 100 ML IV PRN (22:57)
[2023-03-05] VITALS (30 sets, daily range): BP systolic 106–151; BP diastolic 63–96; TEMP 97.5–99.1; O2SAT 92–100
[2023-03-05 04:49] LABS: BASOPHILS % (AUTO) 0.4 % (0.0-2.0); EOSINOPHILS # (AUTO) 0.1 K/uL (0.0-0.7); HEMATOCRIT 23 % (39-51); HEMOGLOBIN 7.3 g/dL (13.5-17.5); LYMPHOCYTES # (AUTO) 0.9 K/uL (0.8-4.8); MEAN CORPUSCULAR HEMOGLOBIN 27 PG (26.0-33.0); MEAN CORPUSCULAR HGB CONC 32 g/dl (31.0-36.0); MEAN CORPUSCULAR VOLUME 86 fL (80-96); MONOCYTES # (AUTO) 0.6 K/uL (0.1-1.30); MONOCYTES % (AUTO) 6.4 % (2.0-12.0); NEUTROPHILS # (AUTO) 7.1 K/uL (1.8-8.9); NEUTROPHILS % (AUTO) 82.2 % (43.0-81.0); PLATELET COUNT (AUTO) 148 K/uL (150-450); RED BLOOD CELL COUNT(AUTO) 2.69 MIL/uL (4.5-6.0); RED CELL DISTRIBUTION WIDTH 18.2 % (11.5-15.0); WHITE BLOOD COUNT (AUTO) 8.6 K/uL (4.3-11.0)
[2023-03-05 05:02] LABS: ALBUMIN 1.7 g/dL (3.4-5.0); ALKALINE PHOSPHATASE 106 U/L (46-116); ASPARTATE AMINOTRANSFERASE 14 U/L (15-37); BILIRUBIN,TOTAL 0.3 mg/dL (0.2-1.0); CALCIUM, SERUM 9.3 mg/dL (8.5-10.1); CARBON DIOXIDE 30 mmol/L (21-32); CHLORIDE 97 mmol/L (98-107); CREATININE 3.1 mg/dL (0.6-1.3); GLUCOSE 79 mg/dL (74-106); SODIUM SERUM 132 mmol/L (136-145); TOTAL PROTEIN, SERUM 8.3 g/dL (6.4-8.2); UREA NITROGEN, BLOOD 29 mg/dL (7-18)
[2023-03-05 05:24] LABS: ALANINE AMINOTRANSFERASE < 6 U/L (12-78)
[2023-03-05 05:30] LABS: POTASSIUM 2.8 mmol/L (3.5-5.1)
[2023-03-05] MEDS: POTASSIUM CHLORIDE 20 MEQ POWDER PACKET GT ONE (10:22)
[2023-03-05] MEDS: OLANZAPINE 2.5 MG TABLET GT SCH (13:32)
[2023-03-06] VITALS (34 sets, daily range): BP systolic 109–162; BP diastolic 65–96; TEMP 97.9–98.7; O2SAT 87–100
[2023-03-06 04:02] LABS: ABG BASE EXCESS 2.5 mmol/L; ABG OXYGEN SATURATION 97.2 % (92.0-98.5); ABG PCO2 62.6 mmHg (35.0-45.0); ABG PH 7.292 (7.350-7.450); ABG PO2 96.8 mmHg (75.0-100.0); ABG TOTAL HEMOGLOBIN 7.6 G/dL (13.5-18.0); AaDO2 189.3 mmHg; COHb 1.9 % (0.5-1.5); MetHb 0.2 % (0.0-1.5); O2Hb 95.2 % (94.0-97.0); SITE, ABG Right Radial; VENT MODE, BG 25/5 R 18 50%
[2023-03-06 06:54] LABS: ABG BASE EXCESS 5.5 mmol/L; ABG OXYGEN SATURATION 98.7 % (92.0-98.5); ABG PH 7.396 (7.350-7.450); ABG PO2 138.7 mmHg (75.0-100.0); ABG TOTAL HEMOGLOBIN 8.8 G/dL (13.5-18.0); AaDO2 159.3 mmHg; COHb 0.9 % (0.5-1.5); MetHb 0.6 % (0.0-1.5); O2Hb 97.2 % (94.0-97.0); SITE, ABG Right Radial; VENT MODE, BG bipap 25/5 rr18
[2023-03-06 08:14] LABS: BASOPHILS % (AUTO) 0.4 % (0.0-2.0); EOSINOPHILS # (AUTO) 0.1 K/uL (0.0-0.7); HEMATOCRIT 27 % (39-51); HEMOGLOBIN 8.2 g/dL (13.5-17.5); LYMPHOCYTES # (AUTO) 1.1 K/uL (0.8-4.8); LYMPHOCYTES % (AUTO) 15.9 % (20.0-44.0); MEAN CORPUSCULAR HEMOGLOBIN 27 PG (26.0-33.0); MEAN CORPUSCULAR HGB CONC 31 g/dl (31.0-36.0); MEAN CORPUSCULAR VOLUME 87 fL (80-96); MONOCYTES # (AUTO) 0.5 K/uL (0.1-1.30); MONOCYTES % (AUTO) 6.4 % (2.0-12.0); NEUTROPHILS # (AUTO) 5.5 K/uL (1.8-8.9); NEUTROPHILS % (AUTO) 76.3 % (43.0-81.0); PLATELET COUNT (AUTO) 154 K/uL (150-450); RED BLOOD CELL COUNT(AUTO) 3.07 MIL/uL (4.5-6.0); RED CELL DISTRIBUTION WIDTH 18.1 % (11.5-15.0); WHITE BLOOD COUNT (AUTO) 7.2 K/uL (4.3-11.0)
[2023-03-06 08:45] LABS: ALANINE AMINOTRANSFERASE < 6 U/L (12-78); ALBUMIN 1.7 g/dL (3.4-5.0); ALKALINE PHOSPHATASE 113 U/L (46-116); ASPARTATE AMINOTRANSFERASE 16 U/L (15-37); BILIRUBIN,TOTAL 0.3 mg/dL (0.2-1.0); CALCIUM, SERUM 9.7 mg/dL (8.5-10.1); CARBON DIOXIDE 28 mmol/L (21-32); CHLORIDE 95 mmol/L (98-107); CREATININE 4.1 mg/dL (0.6-1.3); GLUCOSE 71 mg/dL (74-106); POTASSIUM 4.1 mmol/L (3.5-5.1); SODIUM SERUM 129 mmol/L (136-145); TOTAL PROTEIN, SERUM 8.8 g/dL (6.4-8.2); UREA NITROGEN, BLOOD 40 mg/dL (7-18)
[2023-03-06] MEDS: LEVETIRACETAM (500MG) 500 MG in IV NS 0.9% 100 ML IV SCH (14:38)
[2023-03-06] MEDS ORDERED: LORAZEPAM INJ 2 MG/ML VIAL IV PRN (18:00)
[2023-03-07] VITALS (20 sets, daily range): BP systolic 127–168; BP diastolic 62–94; TEMP 97.6–99.9; O2SAT 83–100
[2023-03-07 04:10] LABS: BASOPHILS # (AUTO) 0.1 K/uL (0.0-0.2); BASOPHILS % (AUTO) 1.4 % (0.0-2.0); EOSINOPHILS % (AUTO) 0.8 % (0.0-6.0); HEMATOCRIT 24 % (39-51); HEMOGLOBIN 7.4 g/dL (13.5-17.5); LYMPHOCYTES # (AUTO) 0.9 K/uL (0.8-4.8); LYMPHOCYTES % (AUTO) 14.6 % (20.0-44.0); MEAN CORPUSCULAR HEMOGLOBIN 26 PG (26.0-33.0); MEAN CORPUSCULAR HGB CONC 30 g/dl (31.0-36.0); MEAN CORPUSCULAR VOLUME 87 fL (80-96); MONOCYTES # (AUTO) 0.4 K/uL (0.1-1.30); MONOCYTES % (AUTO) 7.1 % (2.0-12.0); NEUTROPHILS # (AUTO) 4.7 K/uL (1.8-8.9); NEUTROPHILS % (AUTO) 76.1 % (43.0-81.0); PLATELET COUNT (AUTO) 139 K/uL (150-450); RED BLOOD CELL COUNT(AUTO) 2.79 MIL/uL (4.5-6.0); RED CELL DISTRIBUTION WIDTH 18.1 % (11.5-15.0); WHITE BLOOD COUNT (AUTO) 6.2 K/uL (4.3-11.0)
[2023-03-07 04:35] LABS: CALCIUM, SERUM 9.1 mg/dL (8.5-10.1); CREATININE 2.9 mg/dL (0.6-1.3); PHOSPHORUS 2.9 mg/dL (2.5-4.9); POTASSIUM 3.2 mmol/L (3.5-5.1)
[2023-03-07] MEDS ORDERED: hydrALAZINE HCL IV 20 MG VIAL IV PRN (06:30)
[2023-03-07 08:20] LABS: ABG BASE EXCESS 1.1 mmol/L; ABG OXYGEN SATURATION 96.5 % (92.0-98.5); ABG PCO2 48.7 mmHg (35.0-45.0); ABG PO2 84.1 mmHg (75.0-100.0); ABG TOTAL HEMOGLOBIN 8.8 G/dL (13.5-18.0); AaDO2 58.1 mmHg; COHb 2.3 % (0.5-1.5); O2Hb 94.3 % (94.0-97.0); SITE, ABG Right Radial; VENT MODE, BG N/C
[2023-03-07] MEDS: VIT B CMPLX 3/FA/VIT C/BIOTIN 1 TAB TABLET GT SCH (08:31)
[2023-03-07] MEDS: DEXTROSE 50%-WATER 50 ML DISP.SYRIN IVP PRN (20:49)
[2023-03-08] VITALS (17 sets, daily range): BP systolic 121–133; BP diastolic 71–79; TEMP 97.9–98.7; O2SAT 94–100
[2023-03-08 06:53] LABS: CALCIUM, SERUM 9.5 mg/dL (8.5-10.1); CREATININE 3.9 mg/dL (0.6-1.3); POTASSIUM 3.4 mmol/L (3.5-5.1)
[2023-03-08 07:01] LABS: INR 1.41 (0.91-1.10); PROTHROMBIN TIME 14.6 SECS (9.2-11.1)
[2023-03-08] MEDS: BLOOD SUGAR DIAGNOSTIC 1 EACH STRIP IN SCH (12:29)
[2023-03-08] MEDS: Sodium Chloride 154 MEQ in IV 10% DEXTROSE 1,000 ML IV ONE (12:29)
[2023-03-09] VITALS (17 sets, daily range): BP systolic 134–154; BP diastolic 75–102; TEMP 97.7–98.4; O2SAT 94–100
[2023-03-09 07:12] LABS: BASOPHILS % (AUTO) 0.3 % (0.0-2.0); EOSINOPHILS % (AUTO) 0.6 % (0.0-6.0); HEMATOCRIT 27 % (39-51); HEMOGLOBIN 8.2 g/dL (13.5-17.5); LYMPHOCYTES # (AUTO) 1.1 K/uL (0.8-4.8); LYMPHOCYTES % (AUTO) 18.1 % (20.0-44.0); MEAN CORPUSCULAR HEMOGLOBIN 27 PG (26.0-33.0); MEAN CORPUSCULAR HGB CONC 31 g/dl (31.0-36.0); MEAN CORPUSCULAR VOLUME 89 fL (80-96); MONOCYTES # (AUTO) 0.5 K/uL (0.1-1.30); MONOCYTES % (AUTO) 8.5 % (2.0-12.0); NEUTROPHILS # (AUTO) 4.4 K/uL (1.8-8.9); NEUTROPHILS % (AUTO) 72.5 % (43.0-81.0); PLATELET COUNT (AUTO) 108 K/uL (150-450); RED BLOOD CELL COUNT(AUTO) 3.01 MIL/uL (4.5-6.0); RED CELL DISTRIBUTION WIDTH 18.2 % (11.5-15.0)
[2023-03-09 07:28] LABS: CALCIUM, SERUM 9.5 mg/dL (8.5-10.1); CREATININE 3.2 mg/dL (0.6-1.3); POTASSIUM 3.3 mmol/L (3.5-5.1)
[2023-03-09] MEDS ORDERED: POTASSIUM CHLORIDE 10 MEQ/50 ML PREMIXED IVPB FOR PERIPHERAL LINE IV ONE (10:30)
[2023-03-09] MEDS: POTASSIUM CL. PREMIX PERIPHER. 50 ML IV SCH (10:54)
[2023-03-10] VITALS (19 sets, daily range): BP systolic 134–154; BP diastolic 66–93; TEMP 97.8–98.7; O2SAT 94–100
[2023-03-10] MEDS: DEXTROSE 10% IN WATER 250 ML IV SCH (07:00)
[2023-03-10] MEDS ORDERED: DEXTROSE 10% IN WATER 250 ML BAG IV ONE (07:00)
[2023-03-10 07:08] LABS: BASOPHILS % (AUTO) 0.1 % (0.0-2.0); EOSINOPHILS % (AUTO) 0.4 % (0.0-6.0); HEMATOCRIT 26 % (39-51); HEMOGLOBIN 7.9 g/dL (13.5-17.5); LYMPHOCYTES % (AUTO) 11.8 % (20.0-44.0); MEAN CORPUSCULAR HEMOGLOBIN 27 PG (26.0-33.0); MEAN CORPUSCULAR HGB CONC 31 g/dl (31.0-36.0); MEAN CORPUSCULAR VOLUME 89 fL (80-96); MONOCYTES # (AUTO) 0.5 K/uL (0.1-1.30); MONOCYTES % (AUTO) 5.8 % (2.0-12.0); NEUTROPHILS # (AUTO) 7.1 K/uL (1.8-8.9); NEUTROPHILS % (AUTO) 81.9 % (43.0-81.0); PLATELET COUNT (AUTO) 101 K/uL (150-450); RED BLOOD CELL COUNT(AUTO) 2.93 MIL/uL (4.5-6.0); RED CELL DISTRIBUTION WIDTH 18.4 % (11.5-15.0); WHITE BLOOD COUNT (AUTO) 8.7 K/uL (4.3-11.0)
[2023-03-10 07:40] LABS: CALCIUM, SERUM 9.4 mg/dL (8.5-10.1); CREATININE 4.1 mg/dL (0.6-1.3); POTASSIUM 3.6 mmol/L (3.5-5.1)
[2023-03-10] MEDS ORDERED: DIATR MEGLU/DIATRIZOATE SODIUM 30 ML BOTTLE (GASTROGRAPHIN) ONE (09:33)
[2023-03-11] VITALS (10 sets, daily range): BP systolic 139–151; BP diastolic 64–87; TEMP 97.8–99; O2SAT 96–100
[2023-03-11 08:50] LABS: CALCIUM, SERUM 9.6 mg/dL (8.5-10.1); CREATININE 3.4 mg/dL (0.6-1.3); POTASSIUM 3.4 mmol/L (3.5-5.1)
[2023-03-11] MEDS ORDERED: Nepro GT (10:06)
[2023-03-11] MEDS ORDERED: IPRA0.2S9 NEB (10:06)
[2023-03-11] MEDS ORDERED: Hydrogel Dressing TP (10:06)
[2023-03-11] MEDS ORDERED: VANC500P5 IV (10:06)
[2023-03-11] MEDS ORDERED: Olanzapine GT (10:06)
[2023-03-11] MEDS ORDERED: ACET1OOV6 NEB (10:06)
[2023-03-11] MEDS ORDERED: VIT1TABL44 GT (10:06)
[2023-03-11] MEDS: LEVETIRACETAM SOL (5 ML) 100 MG/ML UDC GT SCH (15:01)
== END 2023-03-11 15:50 | DRG 193 ==
LOC: ER 11:14 → TRANSITION 18:40 → TELE1 02-26 11:58 → MEDSG1 02-26 12:17 → ICU 03-04 04:49 → TELE-TD 03-07 10:45 → TELE1 03-09 09:47
PROVIDERS: ADMIT Internal Medicine; ATTEND Nurse Practitioner Acute Care
PROC: 5A1D70Z Performance of Urinary Filtration, Intermittent, Less than 6 Hours Per Day (ICD-10-PCS; 2023-02-26)
PROC: 05HY33Z Insertion of Infusion Device into Upper Vein, Percutaneous Approach (ICD-10-PCS; 2023-02-27)
PROC: 0DH63UZ Insertion of Feeding Device into Stomach, Percutaneous Approach (ICD-10-PCS; principal; 2023-02-28)
PROC: 5A09457 Assistance with Respiratory Ventilation, 24-96 Consecutive Hours, Continuous Positive Airway Pressure (ICD-10-PCS; 2023-03-04)
PROC: 30233N1 Transfusion of Nonautologous Red Blood Cells into Peripheral Vein, Percutaneous Approach (ICD-10-PCS; 2023-03-04)
PROC: 0DH63UZ Insertion of Feeding Device into Stomach, Percutaneous Approach (ICD-10-PCS; 2023-03-09)
DX: J15.9 Unspecified bacterial pneumonia (principal); E43 Unspecified severe protein-calorie malnutrition; L89.153 Pressure ulcer of sacral region, stage 3; G93.41 Metabolic encephalopathy; I21.A1 Myocardial infarction type 2; N18.6 End stage renal disease; J96.01 Acute respiratory failure with hypoxia; J96.02 Acute respiratory failure with hypercapnia; K94.23 Gastrostomy malfunction; E87.1 Hypo-osmolality and hyponatremia; G93.1 Anoxic brain damage, not elsewhere classified; E87.29 Other acidosis; J98.11 Atelectasis; R78.81 Bacteremia; R64 Cachexia; K29.70 Gastritis, unspecified, without bleeding; Y83.3 Surgical operation with formation of external stoma as the cause of abnormal reaction of the patient, or of later complication, without mention of misadventure at the time of the procedure; Y92.129 Unspecified place in nursing home as the place of occurrence of the external cause; R13.10 Dysphagia, unspecified; I25.10 Atherosclerotic heart disease of native coronary artery without angina pectoris; Z99.2 Dependence on renal dialysis; F20.9 Schizophrenia, unspecified; Z79.01 Long term (current) use of anticoagulants; Z79.899 Other long term (current) drug therapy; Z95.1 Presence of aortocoronary bypass graft; Z86.14 Personal history of Methicillin resistant Staphylococcus aureus infection; D63.1 Anemia in chronic kidney disease; Z95.828 Presence of other vascular implants and grafts; E11.22 Type 2 diabetes mellitus with diabetic chronic kidney disease; E88.09 Other disorders of plasma-protein metabolism, not elsewhere classified; G40.909 Epilepsy, unspecified, not intractable, without status epilepticus; I48.0 Paroxysmal atrial fibrillation; I50.9 Heart failure, unspecified; E87.6 Hypokalemia; Y95 Nosocomial condition; B95.62 Methicillin resistant Staphylococcus aureus infection as the cause of diseases classified elsewhere; R62.7 Adult failure to thrive; Z86.73 Personal history of transient ischemic attack (TIA), and cerebral infarction without residual deficits; Z86.74 Personal history of sudden cardiac arrest; E83.9 Disorder of mineral metabolism, unspecified
CPT/HCPCS: 36410; 36415; 36600; 43246; 43761; 71045-TC; 71250-TC; 74018; 80048-TC; 80053-TC; 80076-TC; 80202-TC; 82803-TC; 82962-TC; 83605-TC; 83735-TC; 84100-TC; 84484-TC; 85025-TC; 85610-TC; 85730-TC; 86850-TC; 87040-TC; 87081-TC; 90935-TC; 94660; 94762-TC; 94799-TC; A4223; A6248; A6403; G0378; J0690; J0692; J1953; J2704; J2765; J3370; J3480; J3490; J7030; J7040; J7042; J7050; J7060; J7120; P9016; Q9963